=== PATIENT | female | born 1935 | race Hispanic/Latino ===

== ENCOUNTER 2017-11-14 13:58 | Outpatient (CLI) | payer MEDICARE | END 2017-11-14 13:59 | disposition home or self-care (01) | LOC: BICMAMMO 13:58 | PROVIDERS: ATTEND Internal Medicine | DX: Z12.31 Encounter for screening mammogram for malignant neoplasm of breast (principal); R92.1 Mammographic calcification found on diagnostic imaging of breast | CPT/HCPCS: 77063; 77067 ==

== ENCOUNTER 2017-11-19 15:04 | Outpatient (CLI) | payer MEDICARE | END 2017-11-19 15:05 | disposition home or self-care (01) | LOC: BICMAMMO 15:04 | PROVIDERS: ATTEND Internal Medicine | DX: N95.9 Unspecified menopausal and perimenopausal disorder (principal); M85.89 Other specified disorders of bone density and structure, multiple sites | CPT/HCPCS: 77080 ==

== ENCOUNTER 2017-12-26 09:45 | Outpatient (CLI) | payer MEDICARE ==
--- NOTE | 2017-12-26 11:16 | RAD ---
TWO VIEWS CHEST: Comparison: 06-19-14 History: Pre-operative radiograph with bronchitis. FINDINGS: Two views of the chest shows normal sized cardiomediastinal silhouette. The patient is status post st ernotomy. There is no evidence of consolidation, mass, or pleural effusion. IMPRESSION: No evidence of acute cardiopulmonary disease. POS: [facility]
== END 2017-12-26 09:46 | disposition home or self-care (01) ==
LOC: BICRAD 09:45
PROVIDERS: ATTEND Internal Medicine
DX: Z01.818 Encounter for other preprocedural examination (principal)
CPT/HCPCS: 71046

== ENCOUNTER 2018-11-03 04:40 | Emergency (ER) | payer MEDICARE, SELFPAY ==
[2018-11-03 05:21] LABS: #Eosinphils 0.3 thou/uL (0.0-0.7); #Lymphocytes 1.5 thou/uL (1.20-3.40); #Monocytes 0.4 thou/uL (0.11-0.59); #Neutrophils 5.3 thou/uL (1.40-6.50); %Basophils 0.2 % (0.0-1.0); %Lymphocytes 20.3 % (21.0-51.0); %Monocytes 4.8 % (0.0-10.0); %Neutrophils 70.8 % (42.0-75.0); Mean Corpuscular Hemoglobin 30.2 pg (27.0-31.0); Mean Corpuscular Volume 91.7 fL (78.0-98.0); Mean Platelet Volume 8.1 fL (7.4-10.4); Platelet Count 260 thou/uL (130-400); RBC Distribution Width 14.2 % (11.5-14.5); Red Blood Cell (RBC) Count 3.97 mill/uL (4.20-5.40); White Blood Cell (WBC) Count 7.5 thou/uL (4.8-10.8)
[2018-11-03] MEDS ORDERED: cloNIDine 0.1 MG TAB ONE (05:41)
[2018-11-03] MEDS ORDERED: Amlodipine 5 MG TAB ONE (05:41)
[2018-11-03 05:42] LABS: ALT (SGPT) 24 U/L (8-55); AST (SGOT) 41 U/L (5-34); Alkaline Phosphatase 86 U/L (40-150); Anion Gap 14 mmol/L (10-20); BUN (Urea Nitrogen) 18 mg/dL (9.8-20.1); Bilirubin, Total 0.6 mg/dL (0.2-1.2); Calc. Creatinine Clearance 0 mL/min (70-130); Calcium 9.7 mg/dL (7.8-10.44); Carbon Dioxide 22 mmol/L (23-31); Chloride 106 mmol/L (98-107); Estimated GFR-MDRD 55; Glucose 145 mg/dL (83-110); Potassium 3.7 mmol/L (3.5-5.1); Sodium 138 mmol/L (136-145)
[2018-11-03] MEDS ORDERED: Lisinopril 20 MG TAB PO SCH (06:00)
[2018-11-03] MEDS ORDERED: Bisoprolol Fumarate 5 MG TAB PO SCH (06:00)
--- NOTE | 2018-11-03 07:38 | RAD ---
EXAM: Portable chest PROVIDED CLINICAL HISTORY: Weakness COMPARISON: 12/26/2017 FINDINGS: Cardiac silhouette remains enlarged. Atherosclerosis and median sternotomy changes are again seen. Ex amination is rotated and apical lordotic, limiting evaluation. No focal consolidation, pleural fluid or pneumothorax evident. IMPRESSION: No evidence for an acute cardiopulmonary process.
== END 2018-11-03 06:11 | disposition home or self-care (01) ==
LOC: ERS 04:40
DX: I10 Essential (primary) hypertension (principal); R06.02 Shortness of breath; I25.10 Atherosclerotic heart disease of native coronary artery without angina pectoris; E11.9 Type 2 diabetes mellitus without complications; E78.5 Hyperlipidemia, unspecified; Z79.899 Other long term (current) drug therapy; Z79.4 Long term (current) use of insulin; Z79.82 Long term (current) use of aspirin
CPT/HCPCS: 36415; 71045; 80053; 83880; 84484; 85025; 93005

== ENCOUNTER 2018-12-13 14:00 | Outpatient (CLI) | payer MEDICARE ==
--- NOTE | 2018-12-13 14:40 | MMO ---
Bilateral MAMMO Bilat Screen [facility]. CLINICAL HISTORY: Patient is 83 years old and is seen for screening. The patient has no family history of breast cancer. The patient has no personal history of cancer. VIEWS: The views performed were: bilateral craniocaudal with tomosynthesis and bilateral mediolateral oblique with tomosynthesis. FILMS COMPARED: The present examination has been compared to prior imaging studies performed at [facility] on 01/21/2014, 02/11/2015, 04/13/2016 and 11/14/2017. This study has been interpreted with the assistance of computer-aided detection. MAMMOGRAM FINDINGS: There are scattered fibroglandular densities. There are stable benign appearing calcifications seen in both breasts. There are also vascular calcifications. There are no suspicious masses, suspicious calcifications, or new areas of architectural distortion. IMPRESSION: THERE IS NO MAMMOGRAPHIC EVIDENCE OF MALIGNANCY. A ROUTINE FOLLOW-UP MAMMOGRAM IN 1 YEAR IS RECOMMENDED. THE RESULTS OF THIS EXAM WERE SENT TO THE PATIENT. ACR BI-RADS Category 2 - Benign finding MAMMOGRAPHY NOTE: 1. A negative mammogram report should not delay a biopsy if a dominant of clinically suspicious mass is present. 2. Approximately 10% to 15% of breast cancers are not detected by mammography. 3. Adenosis and dense breasts may obscure an underlying neoplasm. Reported by: GUILHERME GEORGES MD Electonically Signed: [id number]
== END 2018-12-13 14:01 | disposition home or self-care (01) ==
LOC: BICMAMMO 14:00
PROVIDERS: ATTEND Internal Medicine
DX: Z12.31 Encounter for screening mammogram for malignant neoplasm of breast (principal)
CPT/HCPCS: 77063; 77067

== ENCOUNTER 2019-01-24 07:22 | Inpatient (IN) | payer MEDICARE ==
[2019-01-24 08:00] LABS: #Eosinphils 0.2 thou/uL (0.0-0.7); #Lymphocytes 1.5 thou/uL (1.20-3.40); #Monocytes 0.5 thou/uL (0.11-0.59); %Basophils 0.3 % (0.0-1.0); %Eosinophils 2.5 % (0.0-10.0); %Lymphocytes 24.6 % (21.0-51.0); %Neutrophils 64.6 % (42.0-75.0); Hemoglobin 10.9 g/dL (12.0-16.0); Mean Corpuscular HGB CONC 32.4 g/dL (32.0-36.0); Mean Corpuscular Hemoglobin 29.7 pg (27.0-31.0); Mean Corpuscular Volume 91.6 fL (78.0-98.0); Mean Platelet Volume 8.6 fL (7.4-10.4); Platelet Count 169 thou/uL (130-400); RBC Distribution Width 13.5 % (11.5-14.5); Red Blood Cell (RBC) Count 3.66 mill/uL (4.20-5.40); White Blood Cell (WBC) Count 6.2 thou/uL (4.8-10.8)
--- NOTE | 2019-01-24 08:10 | RAD ---
Portable chest: HISTORY: Dyspnea COMPARISON: 11/03/2018 FINDINGS:Cardiomegaly. Mild vascular engorgement. No focal infiltrate or significant effusion. Postop sternotomy change. 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 IMPRESSION:Cardiomegaly and mild vascular engorgement
[2019-01-24 08:25] LABS: ALT (SGPT) 136 U/L (8-55); AST (SGOT) 210 U/L (5-34); Albumin 3.9 g/dL (3.4-4.8); Alkaline Phosphatase 131 U/L (40-110); Anion Gap 13 mmol/L (10-20); BUN (Urea Nitrogen) 30 mg/dL (9.8-20.1); Bilirubin, Total 0.5 mg/dL (0.2-1.2); Calc. Creatinine Clearance 0 mL/min (70-130); Calcium 9.5 mg/dL (7.8-10.44); Carbon Dioxide 26 mmol/L (23-31); Chloride 108 mmol/L (98-107); Estimated GFR-MDRD 33; Globulin 3.1 g/dL (2.4-3.5); Glucose 164 mg/dL (83-110); Potassium 4.6 mmol/L (3.5-5.1); Sodium 142 mmol/L (136-145)
[2019-01-24 08:45] LABS: CKMB 4.3 ng/mL (0-6.6)
[2019-01-24] MEDS ORDERED: Nitroglycerin 2% Ointment 1 INCH/1 GM Packet ONE (08:53)
[2019-01-24] MEDS ORDERED: Furosemide 40 MG/4 ML VIAL ONE (08:53)
[2019-01-24] MEDS ORDERED: Aspirin Chewable 81 MG TAB ONE (08:53)
[2019-01-24] MEDS ORDERED: Acetaminophen 325 MG TAB PO PRN (10:31)
[2019-01-24] MEDS ORDERED: Bisacodyl 10 MG SUPP PR PRN (10:31)
[2019-01-24] MEDS ORDERED: Dextrose 5% in Water 1,000 ML IV PRN (10:31)
[2019-01-24] MEDS ORDERED: HumaLOG 300 UNITS/3 ML VIAL SC PRN (10:31)
[2019-01-24] MEDS ORDERED: Senokot S 8.6-50 MG TAB PO PRN (10:31)
[2019-01-24] MEDS ORDERED: Guaifenesin DM 100-10/5 ML UDCUP PO PRN (10:31)
[2019-01-24] MEDS ORDERED: Dextrose 50% Abboject 50 ML SYRINGE SLOW IVP PRN (10:31)
[2019-01-24] MEDS ORDERED: cloNIDine 0.1 MG TAB ONE (10:39)
--- NOTE | 2019-01-24 11:02 | HP ---
PRIMARY CARE PHYSICIAN: Love Zavala MD. PRIMARY CLINICAL RESEARCH ASSISTANT: Dr. Horvath. REASON FOR ADMISSION: CHF exacerbation, acute kidney injury. HISTORY OF PRESENTING ILLNESS: The patient gives history of shortness of breath which started from yesterday. She could not sleep. Finally, the patient woke up and has been awake the whole night. Has dry coughing spells, but no expectoration. No fever. She has had a flu shot for this year. The patient says she has had a stress test and angiogram done before her knee replacement in April of this year. She also mentions that she has had an echo done 3 months back and was told that she has a heart murmur and Dr. Horvath will evaluate her echo again in February. She was also been told that she might need a pacemaker at some point. Currently has no chest pain or palpitations. She normally ambulates by herself, but has been having trouble with shortness of breath now. No abdominal pain, nausea, or vomiting. PAST MEDICAL AND SURGICAL HISTORY: History of diabetes mellitus type 2, hypertension, dyslipidemia, CABG done 12 years back, hysterectomy, history of Smart palsy with complete resolution. CURRENT MEDICATIONS: The patient is on 1. Glimepiride 4 mg twice daily. 2. Benazepril 40 mg twice daily. 3. Atorvastatin 40 mg p.o. at bedtime. 4. Bisoprolol 10 mg p.o. daily. 5. Aspirin 325 mg p.o. daily. 6. Lasix 40 mg p.o. twice daily. 7. Metformin 1000 mg twice daily. 8. Humulin 70/30 24 units subcu twice daily before meals. 9. Clonidine 0.2 mg twice daily. ALLERGIES: NO KNOWN DRUG ALLERGIES. PERSONAL HISTORY: Does not abuse alcohol or drugs. No history of smoking. FAMILY HISTORY: Mother during childbirth when she was 38 years old. Father in his 70s. She does not know much about her father. CODE STATUS: Full. Power of field marketing associate is her . REVIEW OF SYSTEMS: CONSTITUTIONAL: Negative for weight loss or gain, ability to conduct usual activities. SKIN: Negative for rash, itching. EYES: Negative for double vision, pain. ENT/MOUTH: Negative for nose bleeding, neck stiffness, pain, tenderness. CARDIOVASCULAR: Negative for palpitations, dyspnea on exertion, orthopnea. RESPIRATORY: Negative for shortness of breath, wheezing, cough, hemoptysis, fever or night sweats. GASTROINTESTINAL: Negative for poor appetite, abdominal pain, heartburn, nausea , vomiting, constipation, or diarrhea. GENITOURINARY: Negative for urgency, frequency, dysuria, nocturia. MUSCULOSKELETAL: Negative for pain, swelling. NEUROLOGIC/PSYCHIATRIC: Negative for anxiety, depression. ALLERGY/IMMUNOLOGIC: Negative for skin rash, bleeding tendency. PHYSICAL EXAMINATION: GENERAL: The patient is an 83-year-old female who is currently in mild respiratory distress. VITAL SIGNS: Blood pressure 200/100, pulse 62 per minute, respiratory rate 20 per minute, temperature 98.1 degrees Fahrenheit, saturating 98% on room air. NECK: Supple. Elevated JVD. HEENT: Eyes, extraocular muscles intact. Pupils reacting to light. Oral cavity, mucous membranes are dry. No exudates or congestion. CARDIOVASCULAR: S1, S2 heard, irregular rhythm. RESPIRATORY: Air entry 1+ bilateral. Scattered rales in the infrascapular area. There is edema in the lower back area. ABDOMEN: Soft. Bowel sounds heard. No tenderness, rigidity, or guarding. EXTREMITIES: There is 2+ peripheral edema. No calf tenderness. VASCULAR: Peripheral pulses 1+ bilateral, no ischemic ulcerations or gangrene. CENTRAL NERVOUS SYSTEM: No gross focal deficits noted. The patient is alert, awake, and oriented well. PSYCHIATRIC: The patient's mood is euthymic. No hallucinations or delusions. LABORATORY DATA: EKG done shows an atrial fibrillation at 64 beats per minute. There is bifascicular block with signs of LVH and poor R-wave progression. There is also Q-wave seen in leads II, III, aVF. Chest x-ray done shows cardiomegaly with pulmonary vascular congestion. BNP is 1920. AST 210, ALT 136, alkaline phosphatase 131, CK-MB 4.3, albumin 3.9. Troponin I 0.07. BUN 30, creatinine , serum glucose 164, serum bicarb 26. White count of 6, H and H 10 and 33, platelet count 169, MCV is 91 with 64% neutrophils. CLINICAL IMPRESSION AND PLAN: Patient will be admitted to telemetry for acute congestive heart failure exacerbation, acute kidney injury. The patient will be gently diuresed with Lasix 40 mg IV at 6 a.m. and 2 p.m. We will also continue her aspirin, Lipitor, bisoprolol, clonidine, glimepiride, Humulin 70/30 at 20 units subcu twice daily. Her metformin and benazepril will be held for now. Echo will be obtained for current LV function. I have consulted Dr. Madison per family request for acute kidney injury which might get worse with diuresis. She has hypertensive urgency at present, likely a component of anxiety is also present. We will closely watch her. We will provide her regular medications and see how she trends. She has bifascicular block and will be at high risk for bradycardia. We will obtain consultation with Dr. Griffin who is on-call for Dr. Horvath for Cardiology. Job ID: [id number] [facility]
[2019-01-24 11:42] VITALS: BMI 28.6
--- NOTE | 2019-01-24 12:10 | CON ---
DATE OF CONSULTATION: HISTORY OF PRESENT ILLNESS: Ms. Hoff is an 83-year-old white female, who was admitted for CHF exacerbation. We are now being consulted for her acute kidney injury with a creatinine of 1.42. REVIEW OF SYSTEMS: Positive for shortness of breath. Denies any chest pain. No syncopal episode. No productive cough. No fever or chills. No diarrhea. No constipation. No productive cough. No dysuria. No urinary frequency. No abdominal pain. Appetite and energy level are fair. No headache. No diplopia. HOME MEDICATIONS: Included the following 1. Glimepiride 4 mg twice a day. 2. Benazepril 40 mg twice a day. 3. Atorvastatin 40 mg at bedtime. 4. Bisoprolol 10 mg tab daily. 5. Aspirin 325 mg daily. 6. Lasix 40 mg tab twice a day. 7. Metformin 1000 mg twice daily. 8. Humulin 70/30 24 units subcu b.i.d. 9. Clonidine 0.2 mg b.i.d. ALLERGIES: NONE. TRAUMA: None. IMMUNIZATIONS: Up-to-date. HOSPITALIZATIONS: Please see past medical history. PAST MEDICAL HISTORY: Coronary artery disease, status post CHF, type 2 diabetes mellitus, hyperlipidemia, status post Smart palsy, hypertension. PAST SURGICAL HISTORY: Status post CABG, status post cardiac cath. SOCIAL HISTORY: The patient is . 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 No IV drug abuse, currently no smoking, no alcohol intake, sedentary lifestyle. FAMILY HISTORY: No family history of ESRD. PHYSICAL EXAMINATION: VITAL SIGNS: Blood pressure 200/100, heart rate 62, respiratory rate 22, temperature 98.1, and pulse ox 98%. GENERAL: Noted to be awake, in mild respiratory distress. SKIN: Adequate turgor. HEENT: She has a pinkish conjunctivae. Anicteric sclerae. NECK: No neck mass. No carotid bruits. No JVD. CHEST: No deformities. LUNGS: Decreased breath sounds-bibasilar crackles. HEART: Normal sinus rhythm. No murmurs, gallops, or rubs. ABDOMEN: Globular, soft, nontender, no masses. EXTREMITIES: Positive for edema. No calf tenderness. NEUROLOGIC: The patient is awake, alert, oriented to 3 spheres. Moving all extremities. No tremors. No asterixis. LABORATORY DATA: EKG showed atrial fibrillation at 64 beats per minute. Chest x-ray shows cardiomegaly and CHF. Laboratories of January 24, 2019, white count 6.2, hemoglobin 10.9. Sodium 142, potassium 4.6, chloride 108, carbon dioxide 26, BUN 30, creatinine 1.49, AST 210, ALT 136. Troponin I 0.076. BNP 1920. November 03, 2018, creatinine 0.97. Cardiac echo has been ordered. Urinalysis has also been ordered. ASSESSMENT AND PLAN: 1. Acute kidney injury-most likely a hemodynamically-mediated renal dysfunction. History shows that she has been taking maximal dose of benazepril which has been discontinued. We will order urinalysis and renal ultrasound. If there is proteinuria in the urine sediment, most likely she has an underlying chronic renal failure from diabetic nephropathy. 2. Congestive heart failure. Currently, on IV furosemide. Continue diuresis. Observe renal function while on diuretics. 3. There is no indication for any dialytic intervention in this patient. Overall, agree with current management. Job ID: [id number]
[2019-01-24] MEDS: Furosemide 40 MG/4 ML VIAL SLOW IVP SCH (13:38)
[2019-01-24 14:28] LABS: Troponin I 0.053 ng/mL (< 0.028)
--- NOTE | 2019-01-24 16:43 | ULT ---
ULTRASOUND RETROPERITONEUM COMPLETE: (RENAL) DATE: 01/24/2019 HISTORY: 83-year-old female with acute renal failure FINDINGS: Visualization of kidneys and bladder is limited because of large body habitus. The right kidney measures 10.5 x 4.5 x 4 cm. The left kidney measures 10 x 5 x 4.5 cm. Both kidneys have normal parenchymal echogenicity. There is no hydronephrosis. No moderate sized or large renal cystic or solid renal lesion is identified. Cursory images of the urinary bladder demonstrate no gross abnormality. IMPRESSION: 1. Limited study. 2. No abnormality identified.
[2019-01-24] MEDS ORDERED: hydrALAZINE 25 MG TAB PO SCH (16:45)
[2019-01-24 19:21] LABS: Bacteria/HPF None Seen HPF (None Seen); Bilirubin Negative (Negative); Blood, Urine Negative (Negative); Clarity Clear (Clear); Glucose, Urine (Dipstick) Normal (Negative); Leukocyte Negative Leu/uL (Negative); Nitrite Negative (Negative); Protein, Urine (Dipstick) Negative (Neg-Trace); RBC/HPF 0-3 HPF (0-3); Squamous Epithelial 0-3 HPF (0-3); Urobilinogen Normal mg/dL (Less than 2); WBC/HPF 0-3 HPF (0-3)
[2019-01-24] MEDS: Atorvastatin Calcium 40 MG TAB PO SCH (20:00)
[2019-01-24] MEDS: hydrALAZINE 25 MG TAB PO SCH (20:00)
[2019-01-24] MEDS: cloNIDine 0.2 MG TAB PO SCH (20:00)
[2019-01-24] MEDS ORDERED: cloNIDine 0.2 MG TAB PO SCH (21:00)
[2019-01-24] MEDS ORDERED: cloNIDine 0.1 MG TAB PO SCH (21:00)
[2019-01-24] MEDS: HumuLIN 70/30 (300 UNITS/3 ML VIAL) SC SCH (21:11)
--- NOTE | 2019-01-24 22:56 | CON ---
DATE OF CONSULTATION: HISTORY OF PRESENT ILLNESS: Alayna Hoff is an 83-year-old female who has followed with Dr. Horvath for many years. She underwent CABG in December [address] Renee. Three grafts were placed-FAITH to the LAD, vein graft to the obtuse marginal 1 and vein graft to distal right coronary artery. She underwent knee replacement in April and prior to that in February 2018 underwent cardiac catheterization. This revealed the FAITH to the LAD to be patent, vein graft to 1st obtuse marginal and to the right coronary artery were patent. Her last echocardiogram was December 03, 2018 which revealed ejection fraction of 55% to 60% with [id number] mitral regurgitation, mild aortic valve stenosis, moderate tricuspid regurgitation, mild pulmonic regurgitation. She now is admitted with increased peripheral edema as well as increased dyspnea on exertion. She denies any chest discomfort. PAST MEDICAL HISTORY: Coronary artery disease, diabetes, hypertension, hypercholesterolemia, Smart's palsy with complete remission. PAST MEDICAL HISTORY: Knee replacement, CABG, and hysterectomy. MEDICATIONS: At home include: 1. Aspirin 325 daily. 2. Atorvastatin 40 daily. 3. Benazepril 40 mg daily. 4. Bisoprolol 10 mg daily. 5. Clonidine 0.2 mg b.i.d. 6. Fenofibrate 160 daily. 7. Furosemide 40 b.i.d. 8. Glimepiride 4 mg b.i.d. 9. Humulin N. 10. Hydralazine 50 t.i.d. 11. Metformin 1000 mg b.i.d. 12. Minoxidil 2.5 mg daily. ALLERGIES: NONE. SOCIAL HISTORY: She does not smoke or drink. REVIEW OF SYSTEMS: Unremarkable. PHYSICAL: VITAL SIGNS: Blood pressure 193/82, pulse is 55. HEENT: PERRL. NECK: Supple. CHEST: Clear. CARDIAC: S1 and S2 normal without any S3 or S4. There is a 2/6 systolic murmur. ABDOMEN: Normal bowel sounds without tenderness. EXTREMITIES: Revealed 2+ pretibial edema. NEUROLOGIC: Grossly intact. SKIN: Warm and dry. LABORATORY DATA: EKG reveals normal sinus rhythm with at times atrial bigeminy, right bundle-branch block. Hemoglobin 10.9, hematocrit 33.5, white count 6200, platelets 169,000. Troponin I 0.076. BNP 1920.1. Sodium 142, potassium 4.6, chloride 108, carbon dioxide 26, BUN 30 and creatinine 1.49, AST 210, ALT 136. IMPRESSION: 1. Probable ynqao-ej-oplmfih diastolic heart failure. 2. Ydgztqfw-ov-eyfmvf mitral regurgitation. 3. Poorly controlled hypertension. 4. Acute kidney jnspgz-[id number] kidney disease. 5. Hyperlipidemia. 6. History of coronary artery disease. 7. Elevated liver function test, probably due to hepatic congestion. PLAN: The patient will continue to be diuresed and renal function will be monitored closely. Echocardiogram be performed to reassess left ventricular function. We will follow the patient with you. Job ID: [id number]
[2019-01-24] MEDS: hydrALAZINE 20 MG/ML VIAL SLOW IVP PRN (23:18)
[2019-01-25] MEDS ORDERED: ALPRAZolam 0.25 MG TAB PO SCH (03:00)
[2019-01-25] MEDS ORDERED: hydrALAZINE 20 MG/ML VIAL SLOW IVP SCH (05:15)
[2019-01-25] MEDS: Furosemide 40 MG/4 ML VIAL SLOW IVP SCH ×2 (05:46→13:06)
[2019-01-25] MEDS ORDERED: NIFEdipine 10 MG CAP PO SCH (06:45)
[2019-01-25 06:55] LABS: #Eosinphils 0.2 thou/uL (0.0-0.7); #Lymphocytes 1.4 thou/uL (1.20-3.40); #Monocytes 0.4 thou/uL (0.11-0.59); #Neutrophils 4.3 thou/uL (1.40-6.50); %Basophils 0.6 % (0.0-1.0); %Eosinophils 3.1 % (0.0-10.0); %Monocytes 6.6 % (0.0-10.0); %Neutrophils 67.7 % (42.0-75.0); Hemoglobin 10.6 g/dL (12.0-16.0); Mean Corpuscular HGB CONC 32.2 g/dL (32.0-36.0); Mean Corpuscular Hemoglobin 29.6 pg (27.0-31.0); Mean Platelet Volume 8.4 fL (7.4-10.4); Platelet Count 177 thou/uL (130-400); RBC Distribution Width 13.7 % (11.5-14.5); Red Blood Cell (RBC) Count 3.59 mill/uL (4.20-5.40); White Blood Cell (WBC) Count 6.3 thou/uL (4.8-10.8)
[2019-01-25 07:37] LABS: ALT (SGPT) 89 U/L (8-55); AST (SGOT) 75 U/L (5-34); Albumin 3.6 g/dL (3.4-4.8); Alkaline Phosphatase 110 U/L (40-110); Anion Gap 14 mmol/L (10-20); BUN (Urea Nitrogen) 27 mg/dL (9.8-20.1); Bilirubin, Total 0.9 mg/dL (0.2-1.2); Calc. Creatinine Clearance 34 mL/min (70-130); Calcium 9.7 mg/dL (7.8-10.44); Carbon Dioxide 25 mmol/L (23-31); Chloride 106 mmol/L (98-107); Estimated GFR-MDRD 38; Globulin 2.7 g/dL (2.4-3.5); Glucose 186 mg/dL (83-110); Potassium 3.7 mmol/L (3.5-5.1); Protein, Total 6.3 g/dL (6.0-8.3); Sodium 141 mmol/L (136-145)
[2019-01-25] MEDS ORDERED: NIFEdipine XL 30 MG TAB PO SCH (09:00)
[2019-01-25] MEDS: Bisoprolol Fumarate 5 MG TAB PO SCH (09:13)
[2019-01-25] MEDS: cloNIDine 0.2 MG TAB PO SCH ×2 (09:13→20:29)
[2019-01-25] MEDS: Glimepiride 4 MG TAB PO SCH (09:13)
[2019-01-25] MEDS: Aspirin Chewable 81 MG TAB PO SCH (09:13)
[2019-01-25] MEDS: Enoxaparin Sodium 30 MG/0.3 ML SYRINGE SC SCH (09:13)
[2019-01-25] MEDS: hydrALAZINE 25 MG TAB PO SCH ×3 (09:13→20:29)
[2019-01-25] MEDS: HumuLIN 70/30 (300 UNITS/3 ML VIAL) SC SCH ×2 (09:49→20:29)
--- NOTE | 2019-01-25 10:01 | PRG ---
DATE OF SERVICE: 01/25/2019 SERVICE: Renal Medicine. SUBJECTIVE: Ms. Hoff is an 83-year-old female, admitted for CHF. We saw the patient for an acute kidney injury. At that time, we felt that this was simply a hemodynamically-mediated renal dysfunction secondary to intake of her SHANDRA inhibitor/ARB as well as diuretics. She is now breathing better. Renal function is actually improved. The renal ultrasound was said to be within normal. Cardiology has also evaluated this patient. A cardiac echo was done, which showed a normal ejection fraction. No other complaints today. Her breathing is much improved. OBJECTIVE: VITAL SIGNS: Blood pressure 140/63, heart rate 76, respiratory rate 18, temperature 97.3, pulse ox 94% on room air. GENERAL: Awake, alert, comfortable, not in distress. SKIN: Adequate turgor. HEENT: She has pinkish conjunctivae. Anicteric sclerae. NECK: No neck mass. No carotid bruits. No JVD. CHEST: No deformities. LUNGS: Decreased breath sounds. HEART: Normal sinus rhythm. No murmur. No gallops. No rubs. ABDOMEN: Globular, soft, nontender. No masses. EXTREMITIES: No edema. No deformities. MEDICATIONS: Medications of January 25, 2019, was reviewed. LABORATORY DATA: Laboratories of January 25, 2019, sodium 141, potassium 3.7, chloride 106, carbon dioxide 25, BUN 27, creatinine 1.32, glucose 186, calcium 9.7. AST 75, ALT 89, albumin 3.6, TSH 2.5. Renal ultrasound normal. Cardiac echo; EF is noted to be within normal. ASSESSMENT AND PLAN: 1. Congestive heart failure, clinically improving. Continue current diuretic regimen. 2. Acute kidney injury-this is a hemodynamically-mediated renal dysfunction. Off her SHANDRA inhibitors and ARB for the moment. Continue current diuretic regimen. She is tolerating the current diuretics. There is no indication for any emergent hemodialysis with this patient. 3. We will recheck basic metabolic profile and CBC in the a.m. Job ID: [id number]
--- NOTE | 2019-01-25 12:34 | PDOC.HOSPP ---
- Subjective Encounter Date: 01/25/19 Encounter Time: 08:20 Subjective: Pt seen for followup re: diastolic CHF exacerbation. feels better today. - Objective Vital Signs & Weight: Vital Signs (12 hours) Temp Pulse Pulse Pulse Resp BP BP 01/25/19 11:26 60 54 L 146/72 H 01/25/19 09:13 76 140/63 01/25/19 08:00 97.3 F L 76 18 01/25/19 06:30 55 L 01/25/19 04:42 97.8 F 55 L 20 01/25/19 02:35 58 L 22 H 01/25/19 00:55 BP BP Pulse Ox Pulse Ox Pulse Ox 01/25/19 11:26 150/67 H 96 67 L 01/25/19 09:13 01/25/19 08:00 140/63 94 L 01/25/19 06:30 198/77 H 01/25/19 04:42 196/85 H 95 01/25/19 02:35 208/80 H 96 01/25/19 00:55 176/76 H Weight Weight 145 lb 9.6 oz I&O: 01/24/19 01/25/19 01/26/19 06:59 06:59 06:59 Intake Total 300 Output Total 350 Balance -50 Result Diagrams: 01/25/19 06:35 01/25/19 06:35 Additional Labs: Accuchecks 01/25/19 01/25/19 01/24/19 11:22 05:35 20:33 POC Glucose 324 H 180 H 192 H 01/24/19 01/24/19 17:04 12:57 POC Glucose 184 H 154 H Labs and MARs reviewed by me EKG Reviewed by me: Yes (Tele: NSR) Hospitalist ROS - Review of Systems Respiratory: reports: SOB with excertion Cardiovascular: denies: chest pain, palpitations, orthopnea, paroxysmal noc. dyspnea, edema, light headedness Gastrointestinal: denies: nausea, vomiting, abdominal pain, diarrhea, constipation, melena, hematochezia - Medication Medications: Active Medications Generic Name Dose Route Start Last Admin Trade Name Freq PRN Reason Stop Dose Admin Aspirin 81 mg 01/25/19 09:00 01/25/19 09:13 Aspirin Chewable PO 81 mg DAILY AISHA Administration Atorvastatin Calcium 40 mg 01/24/19 21:00 01/24/19 20:00 Lipitor PO 40 mg HS AISHA Administration Bisoprolol Fumarate 10 mg 01/25/19 09:00 01/25/19 09:13 Zebeta PO 10 mg DAILY AISHA Administration Clonidine 0.2 mg 01/24/19 21:00 01/25/19 09:13 Catapres PO 0.2 mg BID AISHA Administration Enoxaparin Sodium 30 mg 01/25/19 09:00 01/25/19 09:13 Lovenox SC 30 mg 0900 AISHA Administration Furosemide 40 mg 01/24/19 14:00 01/25/19 05:46 Lasix SLOW IVP 40 mg 0600,1400 AISHA Administration Glimepiride 4 mg 01/25/19 08:00 01/25/19 09:13 Amaryl PO 4 mg QAM-WM AISHA Administration Hydralazine HCl 50 mg 01/24/19 21:00 01/25/19 09:13 Apresoline PO 50 mg TID AISHA Administration Hydralazine HCl 10 mg 01/24/19 21:26 01/24/19 23:18 Apresoline SLOW IVP 10 mg Q4H PRN Administration SBP > 180 and HR < 70 Insulin Human Isoph/Insulin Regular 20 units 01/24/19 21:00 01/25/19 09:49 Humulin 70/30 SC 20 unit BID AISHA Administration Sodium Chloride 10 ml 01/24/19 21:00 01/25/19 09:14 Flush - Normal Saline IVF 10 ml Q12HR AISHA Administration - Exam General Appearance: NAD Eye: anicteric sclera ENT: moist mucosa Neck: supple, no thyromegaly Heart: RRR, no rubs, murmur present Respiratory - other findings: Bibasal crackles Extremities: 2+ LE edema Skin: normal turgor Psychiatric: normal affect, normal behavior Hosp A/P (1) Acute on chronic diastolic CHF (congestive heart failure), NYHA class 3 Code(s): I50.33 - ACUTE ON CHRONIC DIASTOLIC (CONGESTIVE) HEART FAILURE Status : Acute (2) Acute worsening of stage 3 chronic kidney disease Code(s): N18.3 - CHRONIC KIDNEY DISEASE, STAGE 3 (MODERATE) Status: Acute (3) Hypertensive urgency Code(s): I16.0 - HYPERTENSIVE URGENCY Status: Acute (4) DM2 (diabetes mellitus, type 2) Status: Chronic (5) Dyslipidemia Code(s): E78.5 - HYPERLIPIDEMIA, UNSPECIFIED Status: Chronic - Plan plan discussed w/ family, out of bed/ambulate Continue IV furosemide. Continue PRN antihypertensives. Continue Lipitor. Creatinine improved to 1.32 today.
--- NOTE | 2019-01-25 15:11 | PDOC.CPN ---
- Subjective Date: 01/25/19 Time: 15:08 Interval history: Doing better. Still unable to talk without getting short winded. - Review of Systems General: denies: fever/chills, weight/appetite/sleep changes, night sweats, fatigue Respiratory: reports: shortness of breath. denies: cough, congestion, exercise intolerance Cardiovascular: reports: edema. denies: chest pain, palpitation, paroxysmal nocturnal dyspnea, orthopnea Gastrointestinal: denies: nausea, vomiting, diarrhea, constipation, abd pain, GI bleeding Musculoskeletal: denies: pain, tenderness, stiffness, swelling, arthritis/ arthralgias Neurological: denies: numbness, syncope, seizure, weakness - Objective Allergies/Adverse Reactions: Allergies Allergy/AdvReac Type Severity Reaction Status Date / Time No Known Allergies Allergy Verified 08/01/12 18:18 Visit Medications: Current Medications Acetaminophen (Tylenol) 650 mg PO Q4H PRN PRN Reason: Headache/Fever/Mild Pain (1-3) Aspirin (Aspirin Chewable) 81 mg PO DAILY [facility] Last Admin: 01/25/19 09:13 Dose: 81 mg Atorvastatin Calcium (Lipitor) 40 mg PO HS [facility] Last Admin: 01/24/19 20:00 Dose: 40 mg Bisacodyl (Dulcolax) 10 mg CA DAILYPRN PRN PRN Reason: Constipation Bisoprolol Fumarate (Zebeta) 10 mg PO DAILY [facility] Last Admin: 01/25/19 09:13 Dose: 10 mg Clonidine (Catapres) 0.2 mg PO BID [facility] Last Admin: 01/25/19 09:13 Dose: 0.2 mg Dextrose/Water (Dextrose 50%) 25 gm SLOW IVP PRN PRN PRN Reason: Hypoglycemia Enoxaparin Sodium (Lovenox) 30 mg SC 0900 [facility] Last Admin: 01/25/19 09:13 Dose: 30 mg Furosemide (Lasix) 40 mg SLOW IVP 0600,1400 [facility] Last Admin: 01/25/19 13:06 Dose: 40 mg Glimepiride (Amaryl) 4 mg PO QAM-[facility] Last Admin: 01/25/19 09:13 Dose: 4 mg Glucagon (Glucagon) 1 mg IM PRN PRN PRN Reason: Hypoglycemia Guaifenesin/Dextromethorphan (Robitussin Dm) 15 ml PO Q4H PRN PRN Reason: Cough Hydralazine HCl (Apresoline) 50 mg PO TID [facility] Last Admin: 01/25/19 09:13 Dose: 50 mg Hydralazine HCl (Apresoline) 10 mg SLOW IVP Q4H PRN PRN Reason: SBP > 180 and HR < 70 Last Admin: 01/24/19 23:18 Dose: 10 mg Dextrose/Water (D5w) 1,000 mls @ 0 mls/hr IV .Q0M PRN PRN Reason: Hypoglycemia Insulin Human Isoph/Insulin Regular (Humulin 70/30) 20 units SC BID [facility] Last Admin: 01/25/19 09:49 Dose: 20 unit Insulin Human Lispro (Humalog) 0 units SC .MODERATE SLIDING SC PRN PRN Reason: Moderate Correctional Scale Last Admin: 01/25/19 13:07 Dose: 8 unit Insulin Human Lispro (Humalog) 0 units SC .BEDTIME SLIDING SC PRN PRN Reason: Bedtime Correctional Scale Senna/Docusate Sodium (Senokot S) 2 tab PO BIDPRN PRN PRN Reason: Constipation Sodium Chloride (Flush - Normal Saline) 10 ml IVF Q12HR [facility] Last Admin: 01/25/19 09:14 Dose: 10 ml Sodium Chloride (Flush - Normal Saline) 10 ml IVF PRN PRN PRN Reason: Saline Flush Vital Signs & Weight: Vital Signs Temp Pulse Pulse Pulse Resp BP BP 01/25/19 12:00 97.6 F 60 19 01/25/19 11:26 60 54 L 146/72 H 01/25/19 09:13 76 140/63 01/25/19 08:00 97.3 F L 76 18 01/25/19 06:30 55 L 01/25/19 04:42 97.8 F 55 L 20 BP BP Pulse Ox Pulse Ox Pulse Ox 01/25/19 12:00 123/78 94 L 01/25/19 11:26 150/67 H 96 67 L 01/25/19 09:13 01/25/19 08:00 140/63 94 L 01/25/19 06:30 198/77 H 01/25/19 04:42 196/85 H 95 Weight 145 lb 9.6 oz - Physical Exam General: alert & oriented x3 HEENT: normocephaly Neck: supple neck Cardiac: regular rate and rhythm, systolic murmur Lungs: bibasilar rales Neuro: grossly intact Abdomen: active bowel sounds, soft, non-tender Extremities: 2+ LE edema Skin: clear Musculoskeletal: no pain - Labs Result Diagrams: 01/25/19 06:35 01/25/19 06:35 Troponin/CKMB CK-MB (CK-2) 4.3 ng/mL (0-6.6) 01/24/19 07:50 Troponin I 0.053 ng/mL (< 0.028) H 01/24/19 13:43 - Telemetry Sinus rhythms and dysrhythmias: sinus rhythm - Assessment/Plan Assessment/Plan: 1. Acute on chronic diastolic heart failure. 2, Severe MR 3. Aortic stenosis, likely mild, numbers showing severe likely from juxtaposition of mitral regurgitation wave. 4. CAD, s/p CAB x 3 in 2006 PLAN: - Continue IV diuresis.
[2019-01-25] MEDS: Atorvastatin Calcium 40 MG TAB PO SCH (20:29)
[2019-01-26 03:54] LABS: #Eosinphils 0.3 thou/uL (0.0-0.7); #Lymphocytes 1.7 thou/uL (1.20-3.40); #Monocytes 0.5 thou/uL (0.11-0.59); #Neutrophils 4.2 thou/uL (1.40-6.50); %Basophils 0.2 % (0.0-1.0); %Eosinophils 4.1 % (0.0-10.0); %Lymphocytes 24.8 % (21.0-51.0); %Monocytes 7.5 % (0.0-10.0); %Neutrophils 63.3 % (42.0-75.0); Hemoglobin 10.5 g/dL (12.0-16.0); Mean Corpuscular HGB CONC 33.6 g/dL (32.0-36.0); Mean Corpuscular Hemoglobin 30.5 pg (27.0-31.0); Mean Corpuscular Volume 90.7 fL (78.0-98.0); Mean Platelet Volume 8.7 fL (7.4-10.4); Platelet Count 173 thou/uL (130-400); RBC Distribution Width 13.5 % (11.5-14.5); Red Blood Cell (RBC) Count 3.43 mill/uL (4.20-5.40); White Blood Cell (WBC) Count 6.7 thou/uL (4.8-10.8)
[2019-01-26] MEDS: hydrALAZINE 20 MG/ML VIAL SLOW IVP PRN (04:04)
[2019-01-26 04:13] LABS: Anion Gap 9 mmol/L (10-20); BUN (Urea Nitrogen) 29 mg/dL (9.8-20.1); Calc. Creatinine Clearance 36 mL/min (70-130); Calcium 9.5 mg/dL (7.8-10.44); Carbon Dioxide 31 mmol/L (23-31); Chloride 104 mmol/L (98-107); Estimated GFR-MDRD 41; Glucose 150 mg/dL (83-110); Potassium 3.5 mmol/L (3.5-5.1); Sodium 140 mmol/L (136-145)
[2019-01-26] MEDS ORDERED: Nitroglycerin 2% Ointment 1 INCH/1 GM Packet TOP SCH (05:30)
[2019-01-26] MEDS: Furosemide 40 MG/4 ML VIAL SLOW IVP SCH ×2 (05:32→14:15)
[2019-01-26] MEDS: Bisoprolol Fumarate 5 MG TAB PO SCH (08:42)
[2019-01-26] MEDS: hydrALAZINE 25 MG TAB PO SCH ×3 (08:42→21:03)
[2019-01-26] MEDS: cloNIDine 0.2 MG TAB PO SCH ×2 (08:42→21:03)
[2019-01-26] MEDS: Glimepiride 4 MG TAB PO SCH (08:43)
[2019-01-26] MEDS: HumuLIN 70/30 (300 UNITS/3 ML VIAL) SC SCH ×2 (08:43→21:08)
[2019-01-26] MEDS: Enoxaparin Sodium 30 MG/0.3 ML SYRINGE SC SCH (08:43)
[2019-01-26] MEDS: Aspirin Chewable 81 MG TAB PO SCH (08:43)
--- NOTE | 2019-01-26 08:55 | PRG ---
DATE OF SERVICE: 01/26/2019 SUBJECTIVE: Ms. Hoff is an 83-year-old female, admitted for CHF. Breathing is much better. She is currently on IV diuretics. We saw this patient for acute kidney injury. This was a hemodynamically-mediated renal dysfunction. Adjustment with her medication was done, which improved the renal function. No other new complaints. OBJECTIVE: VITAL SIGNS: Blood pressure 195/78, heart rate 56, respiratory rate 20, temperature 98, pulse ox 95%. GENERAL: Awake, alert, comfortable, not in distress. SKIN: Adequate turgor. HEENT: Pinkish conjunctivae. Anicteric sclerae. NECK: No neck mass. No carotid bruits. No JVD. CHEST: No deformities. LUNGS: Decreased breath sounds. HEART: Normal sinus rhythm. No murmurs, no gallops, or rubs. ABDOMEN: Globular, soft, nontender. No masses. EXTREMITIES: No edema. No deformities. MEDICATIONS: Medications of January 26, 2019, reviewed. LABORATORY DATA: Laboratories of January 26, 2019, hemoglobin 10.5. Potassium 3.5, sodium 140, chloride 104, carbon dioxide 35, BUN 29, creatinine 1.25, calcium 9.5. ASSESSMENT AND PLAN: 1. Acute kidney luppoc-kxklgtqfqfelxco-jqohseys renal dysfunction. Slowly improving renal function with adjustment of her SHANDRA inhibitor /ARB. Continue current management. No indication for any dialysis. 2. Hypertension. Agreed with adjustment of hydralazine upwards. 3. Congestive heart failure, clinically much improved. Continue IV diuretics. Agree with current management. Recheck basic metabolic profile in a.m. Job ID: [id number]
[2019-01-26] MEDS: NIFEdipine XL 30 MG TAB PO SCH ×3 (09:51→18:00)
--- NOTE | 2019-01-26 12:33 | PDOC.HOSPP ---
- Subjective Encounter Date: 01/26/19 Encounter Time: 07:20 Subjective: Pt seen for followup re: CHF exacerbation. Feels better. - Objective Vital Signs & Weight: Vital Signs (12 hours) Temp Pulse Pulse Pulse Resp BP BP 01/26/19 12:25 57 L 47 L 144/65 H 01/26/19 11:30 97.4 F L 47 L 20 01/26/19 10:06 59 L 119/53 L 01/26/19 08:42 98.7 F 59 L 20 215/83 H 01/26/19 04:45 01/26/19 03:51 98.0 F 56 L 20 BP BP Pulse Ox Pulse Ox Pulse Ox 01/26/19 12:25 103/55 L 97 94 L 01/26/19 11:30 143/64 H 96 01/26/19 10:06 01/26/19 08:42 215/83 H 97 01/26/19 04:45 195/78 H 01/26/19 03:51 210/84 H 95 Weight Weight 146 lb 11.2 oz I&O: 01/25/19 01/26/19 01/27/19 06:59 06:59 06:59 Intake Total 300 200 Output Total 350 605 Balance -50 -405 Result Diagrams: 01/26/19 03:31 01/26/19 03:31 Additional Labs: Accuchecks 01/26/19 01/26/19 01/25/19 10:35 06:05 20:31 POC Glucose 339 H 169 H 171 H 01/25/19 01/25/19 18:41 17:11 POC Glucose 227 H 62 L Labs and MARs reviewed by wy Hospitalist ROS - Review of Systems Cardiovascular: denies: chest pain, palpitations, orthopnea, paroxysmal noc. dyspnea, edema, light headedness Gastrointestinal: denies: nausea, vomiting, abdominal pain, diarrhea, constipation, melena, hematochezia - Medication Medications: Active Medications Generic Name Dose Route Start Last Admin Trade Name Freq PRN Reason Stop Dose Admin Aspirin 81 mg 01/25/19 09:00 01/26/19 08:43 Aspirin Chewable PO 81 mg DAILY AISHA Administration Atorvastatin Calcium 40 mg 01/24/19 21:00 01/25/19 20:29 Lipitor PO 40 mg HS AISHA Administration Bisoprolol Fumarate 10 mg 01/25/19 09:00 01/26/19 08:42 Zebeta PO 10 mg DAILY AISHA Administration Clonidine 0.2 mg 01/24/19 21:00 01/26/19 08:42 Catapres PO 0.2 mg BID AISHA Administration Enoxaparin Sodium 30 mg 01/25/19 09:00 01/26/19 08:43 Lovenox SC 30 mg 0900 AISHA Administration Furosemide 40 mg 01/24/19 14:00 01/26/19 05:32 Lasix SLOW IVP 40 mg 0600,1400 AISHA Administration Glimepiride 4 mg 01/25/19 08:00 01/26/19 08:43 Amaryl PO 4 mg QAM-WM AISHA Administration Hydralazine HCl 10 mg 01/24/19 21:26 01/26/19 04:04 Apresoline SLOW IVP 10 mg Q4H PRN Administration SBP > 180 and HR < 70 Hydralazine HCl 75 mg 01/26/19 09:00 01/26/19 08:42 Apresoline PO 75 mg TID AISHA Administration Insulin Human Isoph/Insulin Regular 20 units 01/24/19 21:00 01/26/19 08:43 Humulin 70/30 SC 20 unit BID AISHA Administration Insulin Human Lispro 0 units 01/24/19 10:31 01/25/19 13:07 Humalog SC 8 unit .MODERATE SLIDING SC PRN Administration Moderate Correctional Scale Sodium Chloride 10 ml 01/24/19 21:00 01/26/19 08:44 Flush - Normal Saline IVF 10 ml Q12HR AISHA Administration - Exam General Appearance: NAD Eye: anicteric sclera ENT: moist mucosa Neck: supple, no JVD Heart: RRR, no rubs Respiratory: CTAB, no rales Gastrointestinal: soft, non-tender Extremities: 2+ LE edema Psychiatric: normal affect, normal behavior Hosp A/P (1) Acute on chronic diastolic CHF (congestive heart failure), NYHA class 3 Code(s): I50.33 - ACUTE ON CHRONIC DIASTOLIC (CONGESTIVE) HEART FAILURE Status : Acute (2) Acute worsening of stage 3 chronic kidney disease Code(s): N18.3 - CHRONIC KIDNEY DISEASE, STAGE 3 (MODERATE) Status: Acute (3) Hypertensive urgency Code(s): I16.0 - HYPERTENSIVE URGENCY Status: Acute (4) DM2 (diabetes mellitus, type 2) Status: Chronic (5) Dyslipidemia Code(s): E78.5 - HYPERLIPIDEMIA, UNSPECIFIED Status: Chronic - Plan plan discussed w/ family, out of bed/ambulate Pt is clinically improving. Continue IV furosemide. BP high in AM, improved after AM antihypertensives. Will continue Lipitor. Creatinine improved to 1.25 today.
--- NOTE | 2019-01-26 16:05 | PDOC.CPN ---
- Subjective Date: 01/26/19 Time: 16:03 - Review of Systems General: denies: fever/chills, weight/appetite/sleep changes, night sweats, fatigue Respiratory: denies: cough, congestion, shortness of breath, exercise intolerance Cardiovascular: reports: edema. denies: chest pain, palpitation, paroxysmal nocturnal dyspnea, orthopnea Gastrointestinal: denies: nausea, vomiting, diarrhea, constipation, abd pain, GI bleeding Musculoskeletal: denies: pain, tenderness, stiffness, swelling, arthritis/ arthralgias Neurological: denies: numbness, syncope, seizure, weakness - Objective Allergies/Adverse Reactions: Allergies Allergy/AdvReac Type Severity Reaction Status Date / Time No Known Allergies Allergy Verified 08/01/12 18:18 Visit Medications: Current Medications Acetaminophen (Tylenol) 650 mg PO Q4H PRN PRN Reason: Headache/Fever/Mild Pain (1-3) Aspirin (Aspirin Chewable) 81 mg PO DAILY [facility] Last Admin: 01/26/19 08:43 Dose: 81 mg Atorvastatin Calcium (Lipitor) 40 mg PO HS [facility] Last Admin: 01/25/19 20:29 Dose: 40 mg Bisacodyl (Dulcolax) 10 mg [place] DAILYPRN PRN PRN Reason: Constipation Bisoprolol Fumarate (Zebeta) 10 mg PO DAILY [facility] Last Admin: 01/26/19 08:42 Dose: 10 mg Clonidine (Catapres) 0.2 mg PO BID [facility] Last Admin: 01/26/19 08:42 Dose: 0.2 mg Dextrose/Water (Dextrose 50%) 25 gm SLOW IVP PRN PRN PRN Reason: Hypoglycemia Enoxaparin Sodium (Lovenox) 30 mg SC 0900 [facility] Last Admin: 01/26/19 08:43 Dose: 30 mg Furosemide (Lasix) 40 mg SLOW IVP 0600,1400 [facility] Last Admin: 01/26/19 14:15 Dose: 40 mg Glimepiride (Amaryl) 4 mg PO QAM-[facility] Last Admin: 01/26/19 08:43 Dose: 4 mg Glucagon (Glucagon) 1 mg IM PRN PRN PRN Reason: Hypoglycemia Guaifenesin/Dextromethorphan (Robitussin Dm) 15 ml PO Q4H PRN PRN Reason: Cough Hydralazine HCl (Apresoline) 10 mg SLOW IVP Q4H PRN PRN Reason: SBP > 180 and HR < 70 Last Admin: 01/26/19 04:04 Dose: 10 mg Hydralazine HCl (Apresoline) 75 mg PO TID [facility] Last Admin: 01/26/19 14:15 Dose: 75 mg Dextrose/Water (D5w) 1,000 mls @ 0 mls/hr IV .Q0M PRN PRN Reason: Hypoglycemia Insulin Human Isoph/Insulin Regular (Humulin 70/30) 20 units SC BID [facility] Last Admin: 01/26/19 08:43 Dose: 20 unit Insulin Human Lispro (Humalog) 0 units SC .MODERATE SLIDING SC PRN PRN Reason: Moderate Correctional Scale Last Admin: 01/25/19 13:07 Dose: 8 unit Insulin Human Lispro (Humalog) 0 units SC .BEDTIME SLIDING SC PRN PRN Reason: Bedtime Correctional Scale Nifedipine (Procardia Xl) 30 mg PO DAILY [facility] Senna/Docusate Sodium (Senokot S) 2 tab PO BIDPRN PRN PRN Reason: Constipation Sodium Chloride (Flush - Normal Saline) 10 ml IVF Q12HR [facility] Last Admin: 01/26/19 08:44 Dose: 10 ml Sodium Chloride (Flush - Normal Saline) 10 ml IVF PRN PRN PRN Reason: Saline Flush Vital Signs & Weight: Vital Signs Temp Pulse Pulse Pulse Resp BP BP 01/26/19 14:15 47 L 186/77 H 01/26/19 12:25 57 L 47 L 144/65 H 01/26/19 11:30 97.4 F L 47 L 20 01/26/19 10:06 59 L 119/53 L 01/26/19 08:42 98.7 F 59 L 20 215/83 H 01/26/19 04:45 BP BP Pulse Ox Pulse Ox Pulse Ox 01/26/19 14:15 01/26/19 12:25 103/55 L 97 94 L 01/26/19 11:30 143/64 H 96 01/26/19 10:06 01/26/19 08:42 215/83 H 97 01/26/19 04:45 195/78 H Weight 146 lb 11.2 oz - Physical Exam General: alert & oriented x3 HEENT: mucus membranes moist, normocephaly Neck: supple neck, midline trachea Cardiac: regular rate and rhythm Lungs: normal breath sounds Neuro: grossly intact Abdomen: active bowel sounds, non-tender, distended Extremities: 1+ LE edema Skin: clear Musculoskeletal: no pain - Labs Result Diagrams: 01/26/19 03:31 01/26/19 03:31 Troponin/CKMB CK-MB (CK-2) 4.3 ng/mL (0-6.6) 01/24/19 07:50 Troponin I 0.053 ng/mL (< 0.028) H 01/24/19 13:43 - Telemetry Sinus rhythms and dysrhythmias: sinus rhythm - Assessment/Plan Assessment/Plan: 1. Acute on chronic diastolic heart failure. 2, Severe MR 3. Aortic stenosis, likely mild, numbers showing severe likely from juxtaposition of mitral regurgitation wave. 4. CAD, s/p CAB x 3 in 2006 PLAN: - Continue IV diuresis for one more day then switch to PO lasix. - Dr. Horvath pt, she will follow up tomorrow.
[2019-01-26] MEDS: Atorvastatin Calcium 40 MG TAB PO SCH (21:03)
[2019-01-27 04:52] LABS: Anion Gap 12 mmol/L (10-20); BUN (Urea Nitrogen) 25 mg/dL (9.8-20.1); Calc. Creatinine Clearance 37 mL/min (70-130); Calcium 9.3 mg/dL (7.8-10.44); Carbon Dioxide 26 mmol/L (23-31); Chloride 104 mmol/L (98-107); Estimated GFR-MDRD 44; Glucose 172 mg/dL (83-110); Potassium 3.7 mmol/L (3.5-5.1); Sodium 138 mmol/L (136-145)
[2019-01-27] MEDS: Furosemide 40 MG/4 ML VIAL SLOW IVP SCH (06:16)
[2019-01-27] MEDS: Glimepiride 4 MG TAB PO SCH (08:42)
[2019-01-27] MEDS: cloNIDine 0.2 MG TAB PO SCH ×2 (08:42→21:01)
[2019-01-27] MEDS: Enoxaparin Sodium 30 MG/0.3 ML SYRINGE SC SCH (08:43)
[2019-01-27] MEDS: Aspirin Chewable 81 MG TAB PO SCH (08:43)
[2019-01-27] MEDS: hydrALAZINE 25 MG TAB PO SCH ×3 (08:43→21:01)
[2019-01-27] MEDS: HumuLIN 70/30 (300 UNITS/3 ML VIAL) SC SCH ×2 (08:44→21:28)
--- NOTE | 2019-01-27 08:50 | PDOC.CPN ---
- Subjective Date: 01/27/19 Time: 08:51 Interval history: The pt seen and examined. No overnight events. No cardiac complaints. - Objective Allergies/Adverse Reactions: Allergies Allergy/AdvReac Type Severity Reaction Status Date / Time No Known Allergies Allergy Verified 08/01/12 18:18 Visit Medications: Current Medications Acetaminophen (Tylenol) 650 mg PO Q4H PRN PRN Reason: Headache/Fever/Mild Pain (1-3) Aspirin (Aspirin Chewable) 81 mg PO DAILY [facility] Last Admin: 01/26/19 08:43 Dose: 81 mg Atorvastatin Calcium (Lipitor) 40 mg PO HS [facility] Last Admin: 01/26/19 21:03 Dose: 40 mg Bisacodyl (Dulcolax) 10 mg SC DAILYPRN PRN PRN Reason: Constipation Clonidine (Catapres) 0.2 mg PO BID [facility] Last Admin: 01/26/19 21:03 Dose: 0.2 mg Dextrose/Water (Dextrose 50%) 25 gm SLOW IVP PRN PRN PRN Reason: Hypoglycemia Enoxaparin Sodium (Lovenox) 30 mg SC 0900 [facility] Last Admin: 01/26/19 08:43 Dose: 30 mg Furosemide (Lasix) 40 mg SLOW IVP 0600,1400 [facility] Last Admin: 01/27/19 06:16 Dose: 40 mg Glimepiride (Amaryl) 4 mg PO QAM-WM [facility] Last Admin: 01/26/19 08:43 Dose: 4 mg Glucagon (Glucagon) 1 mg IM PRN PRN PRN Reason: Hypoglycemia Guaifenesin/Dextromethorphan (Robitussin Dm) 15 ml PO Q4H PRN PRN Reason: Cough Hydralazine HCl (Apresoline) 10 mg SLOW IVP Q4H PRN PRN Reason: SBP > 180 and HR < 70 Last Admin: 01/26/19 04:04 Dose: 10 mg Hydralazine HCl (Apresoline) 75 mg PO TID [facility] Last Admin: 01/26/19 21:03 Dose: 75 mg Dextrose/Water (D5w) 1,000 mls @ 0 mls/hr IV .Q0M PRN PRN Reason: Hypoglycemia Insulin Human Isoph/Insulin Regular (Humulin 70/30) 20 units SC BID [facility] Last Admin: 01/26/19 21:08 Dose: Not Given Insulin Human Lispro (Humalog) 0 units SC .BEDTIME SLIDING SC PRN PRN Reason: Bedtime Correctional Scale Insulin Human Lispro (Humalog) 0 units SC .MILD SLIDING SCALE PRN PRN Reason: Mild Correctional Scale Nifedipine (Procardia Xl) 30 mg PO 1700 [facility] Senna/Docusate Sodium (Senokot S) 2 tab PO BIDPRN PRN PRN Reason: Constipation Sodium Chloride (Flush - Normal Saline) 10 ml IVF Q12HR [facility] Last Admin: 01/26/19 21:04 Dose: 10 ml Sodium Chloride (Flush - Normal Saline) 10 ml IVF PRN PRN PRN Reason: Saline Flush Vital Signs & Weight: Vital Signs Temp Pulse Resp BP BP Pulse Ox 01/27/19 08:40 97.6 F 57 L 18 195/86 H 100 01/27/19 03:56 98.2 F 52 L 18 187/81 H 96 01/26/19 23:24 139/63 01/26/19 21:03 57 L 193/75 H 01/26/19 21:00 95 Weight 141 lb 5 oz - Physical Exam General: alert & oriented x3 HEENT: mucus membranes moist Neck: supple neck Cardiac: regular rate and rhythm, S1/S2 Lungs: clear to auscultation, decreased breath sounds Neuro: cranial nerve 2-12 intact Abdomen: unremarkable Extremities: 2+ LE edema Skin: clear Musculoskeletal: normal range of motion - Labs Result Diagrams: 01/26/19 03:31 01/27/19 04:20 Troponin/CKMB CK-MB (CK-2) 4.3 ng/mL (0-6.6) 01/24/19 07:50 Troponin I 0.053 ng/mL (< 0.028) H 01/24/19 13:43 - Telemetry Sinus rhythms and dysrhythmias: sinus rhythm - Assessment/Plan Assessment/Plan: 1. Acute on chronic diastolic heart failure - stable with RA with Lasix 40mg IV BID which will be changed to PO from today; BBlocker was stopped due to bradycardia; SHANDRA was on hold due to hx of CKD; 2, Severe MR 3. Severe Aortic stenosis - likely mild, numbers showing severe likely from juxtaposition of mitral regurgitation wave. 4. CAD, s/p CAB x 3 in 2006 - stable; on ASA and statin; not on bblocker for bradycardia and not on SHANDRA/ARB due to hx of CKD 5. Bradycardia - BBlocker was stopped; 6. HTN - will increase nifidipine from 30mg to 60mg qd since bblocker is on hold for bradycardia MAR reviewed * Echo on 01/24/2019 with EF 55-60%, mild SC, severe , MR, and TR. Pt. seen and eval. by me. I agree with the A/P by the MICROSTRATEGY ARCHITECT. She has a significant MR murmur. The even if not severe may be making the MR worse. It appears that the diastolic dysfunction may be a big contributor to the CHF. She sits most of the day with the legs down and this accounts for the lower leg edema. I suggested that she elevate the legs above the level of the heart but she refuses to stay in the bed. Continue gentle diuresis. Appreciate input from renal. She may eventually need a MV clip for the severe MR. She may need a right and left heart cath to re-evaluate the AV. If severe then will need a posssible TAVR. Eval. of the echo does not indicate severe .
[2019-01-27] MEDS ORDERED: NIFEdipine XL 30 MG TAB PO SCH ×3 (09:00→17:00)
--- NOTE | 2019-01-27 09:08 | PRG ---
DATE OF SERVICE: 01/27/2019 SUBJECTIVE: Ms. Hoff is an 83-year-old female, admitted for CHF and seen by Renal Service for her hemodynamically mediated acute kidney injury. She is doing better. Her shortness of breath much improved. In the interim, adjustment with her BP medications was done due to the bradycardia. No other complaints today. OBJECTIVE: VITAL SIGNS: Blood pressure 195/86, heart rate 57, respiratory rate 18, temperature 97.6, pulse ox 100%. GENERAL: Noted to be awake, alert, comfortable, not in overt distress. SKIN: Adequate turgor. HEENT: Pinkish conjunctivae. Anicteric sclerae. NECK: No neck mass. No carotid bruits. No JVD. CHEST: No deformities. LUNGS: Clear breath sounds. No wheezing. No crackles. HEART: Normal sinus rhythm. No murmurs. No gallops. No rubs. ABDOMEN: Globular, soft, nontender. No masses. EXTREMITIES: No edema. No deformities. MEDICATIONS: Medications of January 27, 2019, were reviewed. LABORATORY DATA: Laboratories of January 27, 2019; sodium 138, potassium 3.7, chloride 104, carbon dioxide 26, BUN 25, creatinine 1.17, glucose 172, calcium 9.3. ASSESSMENT AND PLAN: 1. Acute kidney injury-superimposed prerenal azotemia. Slowly improving with adjustment of her SHANDRA inhibitor/ARB. 2. Hypertension, on increased dose of hydralazine. Procardia has been started. Beta-lea is placed on hold due to the bradycardia. 3. Congestive heart failure, clinically much improved. Continuing current diuretic regimen. 4. Agree with current management. Job ID: [id number]
[2019-01-27] MEDS: HumaLOG 300 UNITS/3 ML VIAL SC PRN ×2 (11:51→21:01)
[2019-01-27] MEDS: Furosemide 40 MG TAB PO SCH (14:29)
[2019-01-27] MEDS: NIFEdipine XL 60 MG TAB PO SCH (16:31)
--- NOTE | 2019-01-27 18:15 | PDOC.HOSPP ---
- Subjective Encounter Date: 01/27/19 Encounter Time: 08:00 Subjective: Pt seen for followup re: CHF exacerbation. States she feels well. - Objective Vital Signs & Weight: Vital Signs (12 hours) Temp Pulse Pulse Pulse Resp BP BP 01/27/19 15:00 97.5 F L 58 L 18 01/27/19 12:00 97.6 F 55 L 18 01/27/19 11:54 48 L 56 L 185/78 H 132/58 L 01/27/19 08:40 97.6 F 57 L 18 BP Pulse Ox 01/27/19 15:00 151/66 H 98 01/27/19 12:00 132/58 L 98 01/27/19 11:54 01/27/19 08:40 195/86 H 95 Weight Weight 141 lb 5 oz I&O: 01/26/19 01/27/19 01/28/19 06:59 06:59 06:59 Intake Total 200 960 Output Total 605 1525 Balance -405 -565 Result Diagrams: 01/26/19 03:31 01/27/19 04:20 Additional Labs: Accuchecks 01/27/19 01/27/19 01/27/19 16:50 10:55 06:23 POC Glucose 198 H 319 H 171 H 01/26/19 21:10 POC Glucose 157 H Labs and MARs reviewed by me EKG Reviewed by me: Yes (Tele: bradycardia) Hospitalist ROS - Review of Systems Cardiovascular: denies: chest pain, palpitations, orthopnea, paroxysmal noc. dyspnea, edema, light headedness Gastrointestinal: denies: nausea, vomiting, abdominal pain, diarrhea, constipation, melena, hematochezia - Medication Medications: Active Medications Generic Name Dose Route Start Last Admin Trade Name Freq PRN Reason Stop Dose Admin Aspirin 81 mg 01/25/19 09:00 01/27/19 08:43 Aspirin Chewable PO 81 mg DAILY AISHA Administration Atorvastatin Calcium 40 mg 01/24/19 21:00 01/26/19 21:03 Lipitor PO 40 mg HS AISHA Administration Clonidine 0.2 mg 01/24/19 21:00 01/27/19 08:42 Catapres PO 0.2 mg BID AISHA Administration Enoxaparin Sodium 30 mg 01/25/19 09:00 01/27/19 08:43 Lovenox SC 30 mg 0900 AISHA Administration Furosemide 40 mg 01/27/19 14:00 01/27/19 14:29 Lasix PO 40 mg 0900,1400 AISHA Administration Glimepiride 4 mg 01/25/19 08:00 01/27/19 08:42 Amaryl PO 4 mg QAM-WM AISHA Administration Hydralazine HCl 10 mg 01/24/19 21:26 01/26/19 04:04 Apresoline SLOW IVP 10 mg Q4H PRN Administration SBP > 180 and HR < 70 Hydralazine HCl 75 mg 01/26/19 09:00 01/27/19 14:29 Apresoline PO 75 mg TID AISHA Administration Insulin Human Isoph/Insulin Regular 20 units 01/24/19 21:00 01/27/19 08:44 Humulin 70/30 SC 20 unit BID AISHA Administration Insulin Human Lispro 0 units 01/26/19 18:51 01/27/19 11:51 Humalog SC 5 unit .MILD SLIDING SCALE PRN Administration Mild Correctional Scale Nifedipine 60 mg 01/27/19 17:00 01/27/19 16:31 Procardia Xl PO 60 mg 1700 AISHA Administration Sodium Chloride 10 ml 01/24/19 21:00 01/27/19 08:44 Flush - Normal Saline IVF 10 ml Q12HR AISHA Administration - Exam General Appearance: NAD Eye: anicteric sclera ENT: negative: moist mucosa Neck: supple Heart: RRR Respiratory: CTAB Gastrointestinal: soft, non-tender Extremities: 2+ LE edema Psychiatric: normal affect, normal behavior Hosp A/P (1) Acute on chronic diastolic CHF (congestive heart failure), NYHA class 3 Code(s): I50.33 - ACUTE ON CHRONIC DIASTOLIC (CONGESTIVE) HEART FAILURE Status : Acute (2) Acute worsening of stage 3 chronic kidney disease Code(s): N18.3 - CHRONIC KIDNEY DISEASE, STAGE 3 (MODERATE) Status: Acute (3) Hypertensive urgency Code(s): I16.0 - HYPERTENSIVE URGENCY Status: Acute (4) DM2 (diabetes mellitus, type 2) Status: Chronic (5) Dyslipidemia Code(s): E78.5 - HYPERLIPIDEMIA, UNSPECIFIED Status: Chronic - Plan plan discussed w/ family, out of bed/ambulate Pt is clinically improving. Lasix switched to oral. Bradycardia, pt is started on Procardia. Will continue Lipitor. Creatinine improved to 1.17 today. Pt was switched to mild insulin sliding scale due to labile blood sugars.
[2019-01-27] MEDS: Atorvastatin Calcium 40 MG TAB PO SCH (21:01)
[2019-01-28 05:23] LABS: Anion Gap 9 mmol/L (10-20); BUN (Urea Nitrogen) 22 mg/dL (9.8-20.1); Calc. Creatinine Clearance 44 mL/min (70-130); Calcium 9.2 mg/dL (7.8-10.44); Carbon Dioxide 29 mmol/L (23-31); Chloride 104 mmol/L (98-107); Estimated GFR-MDRD 54; Glucose 136 mg/dL (83-110); Potassium 3.2 mmol/L (3.5-5.1); Sodium 139 mmol/L (136-145)
[2019-01-28] MEDS: hydrALAZINE 25 MG TAB PO SCH ×3 (08:28→21:30)
[2019-01-28] MEDS: cloNIDine 0.2 MG TAB PO SCH ×2 (08:28→21:31)
[2019-01-28] MEDS: Glimepiride 4 MG TAB PO SCH (08:28)
[2019-01-28] MEDS: HumuLIN 70/30 (300 UNITS/3 ML VIAL) SC SCH ×2 (08:29→21:52)
[2019-01-28] MEDS: Enoxaparin Sodium 30 MG/0.3 ML SYRINGE SC SCH (08:29)
[2019-01-28] MEDS: Furosemide 40 MG TAB PO SCH ×2 (08:29→14:30)
[2019-01-28] MEDS: Aspirin Chewable 81 MG TAB PO SCH (08:29)
--- NOTE | 2019-01-28 08:39 | PRG ---
DATE OF SERVICE: 01/28/2019 SUBJECTIVE: Ms. Hoff is an 83-year-old female, who was seen for acute kidney injury. Her renal function is much improved with adjustment of her medications. She was initially admitted for CHF, which is now clinically resolved. No other complaints today. Adjustment of BP medications has been done. Blood pressure is much improved. OBJECTIVE: VITAL SIGNS: Blood pressure 154/66, heart rate 60, respiratory rate 13, temperature 98, and pulse ox 95%. GENERAL: Awake, sitting comfortable, not in distress. SKIN: Adequate turgor. HEENT: Pinkish conjunctivae, anicteric sclerae. NECK: No neck mass. No carotid bruits. No JVD. CHEST: No deformities. LUNGS: Clear breath sounds. HEART: Normal sinus rhythm. No murmur. No gallops or rubs. ABDOMEN: Globular, soft, nontender, no masses. EXTREMITIES: No edema, no deformities. MEDICATIONS: January 28, 2019, was reviewed. LABORATORY DATA: Laboratories of January 28, 2019: Sodium 139, potassium 3.2, chloride 104, carbon dioxide 29, BUN 22, creatinine 0.98, calcium 9.2. ASSESSMENT AND PLAN: 1. Acute kidney injury - hemodynamically-mediated renal dysfunction. Much improved renal function with adjustment of her ARB/SHANDRA inhibitors. Continue current management. No indication for any dialytic intervention. 2. Mild hypokalemia. P.r.n. potassium replacement. 3. Hypertension, much improved. Continue current BP medications. 4. Congestive heart failure, resolved. Due to the improved renal function, we will be signing off. Job ID: [id number]
[2019-01-28] MEDS ORDERED: Potassium Chloride 20 MEQ TAB PO SCH (09:00)
--- NOTE | 2019-01-28 09:35 | PDOC.CPN ---
- Subjective Date: 01/28/19 Time: 09:35 Interval history: The pt seen and examined. No overnight events. No cardiac complaints. She would like to go home even with high BP. Discussed with the pt and about high risk of stroke and renal failure with high BP. - Objective Allergies/Adverse Reactions: Allergies Allergy/AdvReac Type Severity Reaction Status Date / Time No Known Allergies Allergy Verified 08/01/12 18:18 Visit Medications: Current Medications Acetaminophen (Tylenol) 650 mg PO Q4H PRN PRN Reason: Headache/Fever/Mild Pain (1-3) Aspirin (Aspirin Chewable) 81 mg PO DAILY [facility] Last Admin: 01/28/19 08:29 Dose: 81 mg Atorvastatin Calcium (Lipitor) 40 mg PO HS [facility] Last Admin: 01/27/19 21:01 Dose: 40 mg Bisacodyl (Dulcolax) 10 mg UT DAILYPRN PRN PRN Reason: Constipation Clonidine (Catapres) 0.2 mg PO BID [facility] Last Admin: 01/28/19 08:28 Dose: 0.2 mg Dextrose/Water (Dextrose 50%) 25 gm SLOW IVP PRN PRN PRN Reason: Hypoglycemia Enoxaparin Sodium (Lovenox) 30 mg SC 0900 [facility] Last Admin: 01/28/19 08:29 Dose: 30 mg Furosemide (Lasix) 40 mg PO 0900,1400 [facility] Last Admin: 01/28/19 08:29 Dose: 40 mg Glimepiride (Amaryl) 4 mg PO QAM-WM [facility] Last Admin: 01/28/19 08:28 Dose: 4 mg Glucagon (Glucagon) 1 mg IM PRN PRN PRN Reason: Hypoglycemia Guaifenesin/Dextromethorphan (Robitussin Dm) 15 ml PO Q4H PRN PRN Reason: Cough Hydralazine HCl (Apresoline) 10 mg SLOW IVP Q4H PRN PRN Reason: SBP > 180 and HR < 70 Last Admin: 01/26/19 04:04 Dose: 10 mg Hydralazine HCl (Apresoline) 75 mg PO TID [facility] Last Admin: 01/28/19 08:28 Dose: 75 mg Dextrose/Water (D5w) 1,000 mls @ 0 mls/hr IV .Q0M PRN PRN Reason: Hypoglycemia Insulin Human Isoph/Insulin Regular (Humulin 70/30) 20 units SC BID [facility] Last Admin: 01/28/19 08:29 Dose: 20 unit Insulin Human Lispro (Humalog) 0 units SC .BEDTIME SLIDING SC PRN PRN Reason: Bedtime Correctional Scale Last Admin: 01/27/19 21:01 Dose: 2 unit Insulin Human Lispro (Humalog) 0 units SC .MILD SLIDING SCALE PRN PRN Reason: Mild Correctional Scale Last Admin: 01/27/19 11:51 Dose: 5 unit Isosorbide Dinitrate (Isordil) 10 mg PO BID [facility] Nifedipine (Procardia Xl) 60 mg PO 1700 [facility] Last Admin: 01/27/19 16:31 Dose: 60 mg Potassium Chloride (K-Dur) 40 meq PO NOW [facility] Stop: 01/28/19 11:00 Last Admin: 01/28/19 08:28 Dose: 40 meq Potassium Chloride (K-Dur) 40 meq PO QAM-WM [facility] Senna/Docusate Sodium (Senokot S) 2 tab PO BIDPRN PRN PRN Reason: Constipation Sodium Chloride (Flush - Normal Saline) 10 ml IVF Q12HR [facility] Last Admin: 01/28/19 08:29 Dose: 10 ml Sodium Chloride (Flush - Normal Saline) 10 ml IVF PRN PRN PRN Reason: Saline Flush Vital Signs & Weight: Vital Signs Temp Pulse Resp BP BP Pulse Ox 01/28/19 08:25 98.1 F 55 L 18 199/95 H 98 01/28/19 03:09 98 F 60 13 154/66 H 95 01/28/19 00:00 97.4 F L 59 L 15 155/70 H 98 Weight 139 lb 11.2 oz - Physical Exam Cardiac: S1/S2 Lungs: clear to auscultation Extremities: no cyanosis - Labs Result Diagrams: 01/26/19 03:31 01/28/19 04:10 Troponin/CKMB CK-MB (CK-2) 4.3 ng/mL (0-6.6) 01/24/19 07:50 Troponin I 0.053 ng/mL (< 0.028) H 01/24/19 13:43 - Telemetry Sinus rhythms and dysrhythmias: sinus rhythm - Assessment/Plan Assessment/Plan: 1. Acute on chronic diastolic HF - stable with RA with Lasix 40mg PO BID; BBlocker was stopped due to bradycardia; SHANDRA was on hold due to hx of CKD; will start Isosorbide for Diaslotic HF and HTN management; may start Ranexa and Aldactone. 2, Severe MR - may need a MV clip for the severe MR. 3. Aortic stenosis - likely mild, numbers showing severe likely from juxtaposition of mitral regurgitation wave, does not appear severe.. 4. CAD, s/p CAB x 3 in 2007 - stable; on ASA and statin; not on bblocker for bradycardia and not on SHANDRA/ARB due to hx of CKD 5. Bradycardia - BBlocker was stopped; 6. HTN - will start Isosorbide 10mg BID from this AM MAR reviewed * Echo on 01/24/2019 with EF 55-60%, mild UT, severe , MR, and TR. Pt. seen and eval. by me. I have discussed the pt. and plan with the [employer]. I agree with the A/P. Chest clear. RRR. and MR murmur present and unchanged. 2 + edema. I have explained to the pty. and her that she needs to elevate the legs a couple of hours during the day and wear compression hose.. We are trying to adjust the meds for ther BP and I explained to her that if the BP remains significantly elevated then the renal funtion will deteriorate further and the dysnea and CHF will worsen. She seems agreeable to try the CHF clinic. Ranexa has shown some improvement in symptoms with diastolic CHF. Hopefully she will tolerate the nitrates for the BP. She may also benefit from aldactone if the nitrates don't control the BP. elsa
[2019-01-28] MEDS ORDERED: Isosorbide Dinitrate 20 MG TAB PO SCH (09:45)
[2019-01-28] MEDS: NIFEdipine XL 60 MG TAB PO SCH (16:35)
--- NOTE | 2019-01-28 19:18 | PDOC.HOSPP ---
- Subjective Encounter Date: 01/28/19 Encounter Time: 08:00 Subjective: Pt seen for followup re: hypertensive urgency. No complaints. - Objective Vital Signs & Weight: Vital Signs (12 hours) Temp Pulse Resp BP Pulse Ox 01/28/19 16:03 97.3 F L 51 L 16 173/77 H 100 01/28/19 11:20 97.4 F L 56 L 16 139/61 98 01/28/19 09:20 59 L 152/89 H 01/28/19 08:25 98.1 F 55 L 18 199/95 H 98 Weight Weight 139 lb 11.2 oz I&O: 01/27/19 01/28/19 01/29/19 06:59 06:59 06:59 Intake Total 1460 Output Total 0583 675 Balance -465 675 Result Diagrams: 01/26/19 03:31 01/28/19 04:10 Additional Labs: Accuchecks 01/28/19 01/28/19 01/28/19 17:08 10:45 05:48 POC Glucose 104 119 H 144 H 01/27/19 20:22 POC Glucose 218 H Labs and MARs reviewed by me EKG Reviewed by me: Yes (Tele: NSR) Hospitalist ROS - Review of Systems Cardiovascular: denies: chest pain, palpitations, orthopnea, paroxysmal noc. dyspnea, edema, light headedness Gastrointestinal: denies: nausea, vomiting, abdominal pain, diarrhea, constipation, melena, hematochezia - Medication Medications: Active Medications Generic Name Dose Route Start Last Admin Trade Name Freq PRN Reason Stop Dose Admin Aspirin 81 mg 01/25/19 09:00 01/28/19 08:29 Aspirin Chewable PO 81 mg DAILY AISHA Administration Atorvastatin Calcium 40 mg 01/24/19 21:00 01/27/19 21:01 Lipitor PO 40 mg HS AISHA Administration Clonidine 0.2 mg 01/24/19 21:00 01/28/19 08:28 Catapres PO 0.2 mg BID AISHA Administration Enoxaparin Sodium 30 mg 01/25/19 09:00 01/28/19 08:29 Lovenox SC 30 mg 0900 AISHA Administration Furosemide 40 mg 01/27/19 14:00 01/28/19 14:30 Lasix PO 40 mg 0900,1400 AISHA Administration Glimepiride 4 mg 01/25/19 08:00 01/28/19 08:28 Amaryl PO 4 mg QAM-WM AISHA Administration Hydralazine HCl 10 mg 01/24/19 21:26 01/26/19 04:04 Apresoline SLOW IVP 10 mg Q4H PRN Administration SBP > 180 and HR < 70 Hydralazine HCl 75 mg 01/26/19 09:00 01/28/19 14:30 Apresoline PO 75 mg TID AISHA Administration Insulin Human Isoph/Insulin Regular 20 units 01/24/19 21:00 01/28/19 08:29 Humulin 70/30 SC 20 unit BID AISHA Administration Insulin Human Lispro 0 units 01/24/19 10:31 01/27/19 21:01 Humalog SC 2 unit .BEDTIME SLIDING SC PRN Administration Bedtime Correctional Scale Insulin Human Lispro 0 units 01/26/19 18:51 01/27/19 11:51 Humalog SC 5 unit .MILD SLIDING SCALE PRN Administration Mild Correctional Scale Nifedipine 60 mg 01/27/19 17:00 01/28/19 16:35 Procardia Xl PO 60 mg 1700 AISHA Administration Sodium Chloride 10 ml 01/24/19 21:00 01/28/19 08:29 Flush - Normal Saline IVF 10 ml Q12HR AISHA Administration - Exam General Appearance: NAD Eye: anicteric sclera ENT: no oropharyngeal lesions Neck: supple Heart: RRR Respiratory: CTAB Gastrointestinal: soft, non-tender Extremities: no clubbing Psychiatric: normal affect, normal behavior Hosp A/P (1) Hypertensive urgency Code(s): I16.0 - HYPERTENSIVE URGENCY Status: Acute (2) Acute on chronic diastolic CHF (congestive heart failure), NYHA class 3 Code(s): I50.33 - ACUTE ON CHRONIC DIASTOLIC (CONGESTIVE) HEART FAILURE Status : Acute (3) Acute worsening of stage 3 chronic kidney disease Code(s): N18.3 - CHRONIC KIDNEY DISEASE, STAGE 3 (MODERATE) Status: Acute (4) DM2 (diabetes mellitus, type 2) Status: Chronic (5) Dyslipidemia Code(s): E78.5 - HYPERLIPIDEMIA, UNSPECIFIED Status: Chronic - Plan plan discussed w/ family, out of bed/ambulate BP still high, antihypertensives being titrated. Pt is clinically improving. Continue Procardia. Will continue Lipitor. Creatinine improved to 0.98 today. Continue accuchecks and insulin sliding scale. Replace potassium.
[2019-01-28] MEDS: Isosorbide Dinitrate 20 MG TAB PO SCH (21:31)
[2019-01-28] MEDS: Atorvastatin Calcium 40 MG TAB PO SCH (21:31)
[2019-01-28] MEDS: HumaLOG 300 UNITS/3 ML VIAL SC PRN (21:31)
[2019-01-29] MEDS ORDERED: hydrALAZINE 20 MG/ML VIAL ONE (03:37)
[2019-01-29] MEDS: hydrALAZINE 25 MG TAB PO SCH ×3 (08:40→19:53)
[2019-01-29] MEDS: cloNIDine 0.2 MG TAB PO SCH ×2 (08:40→19:57)
[2019-01-29] MEDS: Isosorbide Dinitrate 20 MG TAB PO SCH ×2 (08:40→19:57)
[2019-01-29] MEDS: HumuLIN 70/30 (300 UNITS/3 ML VIAL) SC SCH ×2 (08:40→20:57)
[2019-01-29] MEDS: Furosemide 40 MG TAB PO SCH ×2 (08:40→14:48)
[2019-01-29] MEDS: Aspirin Chewable 81 MG TAB PO SCH (08:40)
[2019-01-29] MEDS: Glimepiride 4 MG TAB PO SCH (08:40)
[2019-01-29] MEDS: Potassium Chloride 20 MEQ TAB PO SCH (08:40)
[2019-01-29] MEDS: Enoxaparin Sodium 30 MG/0.3 ML SYRINGE SC SCH (08:40)
--- NOTE | 2019-01-29 15:00 | PDOC.HOSPP ---
- Subjective Encounter Date: 01/29/19 Encounter Time: 08:00 Subjective: Pt seen for followup re: hypertensive urgency. Feels well, no complaints. - Objective Vital Signs & Weight: Vital Signs (12 hours) Pulse BP 01/29/19 14:47 54 L 159/79 H Weight Weight 139 lb 11.2 oz I&O: 01/28/19 01/29/19 01/30/19 06:59 06:59 06:59 Intake Total 1460 970 Output Total 3070 0940 Balance -465 -1955 Result Diagrams: 01/26/19 03:31 01/28/19 04:10 Additional Labs: Accuchecks 01/29/19 01/29/19 01/28/19 10:15 05:18 20:39 POC Glucose 190 H 164 H 220 H 01/28/19 17:08 POC Glucose 104 EKG Reviewed by me: Yes (Tele: NSR) Hospitalist ROS - Review of Systems Cardiovascular: denies: chest pain, palpitations, orthopnea, paroxysmal noc. dyspnea, edema, light headedness Gastrointestinal: denies: nausea, vomiting, abdominal pain, diarrhea, constipation, melena, hematochezia - Medication Medications: Active Medications Generic Name Dose Route Start Last Admin Trade Name Freq PRN Reason Stop Dose Admin Aspirin 81 mg 01/25/19 09:00 01/28/19 08:29 Aspirin Chewable PO 81 mg DAILY AISHA Administration Atorvastatin Calcium 40 mg 01/24/19 21:00 01/28/19 21:31 Lipitor PO 40 mg HS AISHA Administration Clonidine 0.2 mg 01/24/19 21:00 01/28/19 21:31 Catapres PO 0.2 mg BID AISHA Administration Enoxaparin Sodium 30 mg 01/25/19 09:00 01/28/19 08:29 Lovenox SC 30 mg 0900 AISHA Administration Furosemide 40 mg 01/27/19 14:00 01/29/19 14:48 Lasix PO 40 mg 0900,1400 AISHA Administration Glimepiride 4 mg 01/25/19 08:00 01/28/19 08:28 Amaryl PO 4 mg QAM-WM AISHA Administration Hydralazine HCl 10 mg 01/24/19 21:26 01/26/19 04:04 Apresoline SLOW IVP 10 mg Q4H PRN Administration SBP > 180 and HR < 70 Hydralazine HCl 75 mg 01/26/19 09:00 01/29/19 14:47 Apresoline PO 75 mg TID AISHA Administration Insulin Human Isoph/Insulin Regular 20 units 01/24/19 21:00 01/28/19 21:52 Humulin 70/30 SC Not Given BID AISHA Insulin Human Lispro 0 units 01/24/19 10:31 01/28/19 21:31 Humalog SC 2 unit .BEDTIME SLIDING SC PRN Administration Bedtime Correctional Scale Insulin Human Lispro 0 units 01/26/19 18:51 01/27/19 11:51 Humalog SC 5 unit .MILD SLIDING SCALE PRN Administration Mild Correctional Scale Isosorbide Dinitrate 10 mg 01/28/19 21:00 01/28/19 21:31 Isordil PO 10 mg BID AISHA Administration Nifedipine 60 mg 01/27/19 17:00 01/28/19 16:35 Procardia Xl PO 60 mg 1700 AISHA Administration Sodium Chloride 10 ml 01/24/19 21:00 01/28/19 21:31 Flush - Normal Saline IVF 10 ml Q12HR AISHA Administration - Exam General Appearance: NAD Eye: anicteric sclera ENT: normocephalic atraumatic, moist mucosa Neck: no thyromegaly, no lymphadenopathy Heart: RRR, no rubs Respiratory: CTAB, no ronchi Gastrointestinal: soft, normal bowel sounds Psychiatric: normal affect, normal behavior Hosp A/P (1) Hypertensive urgency Code(s): I16.0 - HYPERTENSIVE URGENCY Status: Acute (2) Acute on chronic diastolic CHF (congestive heart failure), NYHA class 3 Code(s): I50.33 - ACUTE ON CHRONIC DIASTOLIC (CONGESTIVE) HEART FAILURE Status : Acute (3) Acute worsening of stage 3 chronic kidney disease Code(s): N18.3 - CHRONIC KIDNEY DISEASE, STAGE 3 (MODERATE) Status: Acute (4) DM2 (diabetes mellitus, type 2) Status: Chronic (5) Dyslipidemia Code(s): E78.5 - HYPERLIPIDEMIA, UNSPECIFIED Status: Chronic - Plan plan discussed w/ family, out of bed/ambulate BP still high, antihypertensives being titrated. Continue Lipitor. Brittle diabetic.
[2019-01-29] MEDS: NIFEdipine XL 60 MG TAB PO SCH (18:20)
[2019-01-29 19:01] LABS: Anion Gap 13 mmol/L (10-20); BUN (Urea Nitrogen) 25 mg/dL (9.8-20.1); Calc. Creatinine Clearance 36 mL/min (70-130); Calcium 9.7 mg/dL (7.8-10.44); Carbon Dioxide 28 mmol/L (23-31); Chloride 103 mmol/L (98-107); Estimated GFR-MDRD 44; Glucose 160 mg/dL (83-110); Potassium 3.7 mmol/L (3.5-5.1); Sodium 140 mmol/L (136-145)
[2019-01-29] MEDS: Atorvastatin Calcium 40 MG TAB PO SCH (19:55)
[2019-01-29] MEDS ORDERED: Minoxidil 2.5 MG TAB PO SCH (21:00)
[2019-01-30 06:58] LABS: #Eosinphils 0.3 thou/uL (0.0-0.7); #Lymphocytes 1.6 thou/uL (1.20-3.40); #Monocytes 0.4 thou/uL (0.11-0.59); #Neutrophils 4.6 thou/uL (1.40-6.50); %Basophils 0.3 % (0.0-1.0); %Lymphocytes 22.6 % (21.0-51.0); %Monocytes 6.2 % (0.0-10.0); Hemoglobin 11.4 g/dL (12.0-16.0); Mean Corpuscular HGB CONC 32.6 g/dL (32.0-36.0); Mean Platelet Volume 8.5 fL (7.4-10.4); Platelet Count 197 thou/uL (130-400); RBC Distribution Width 13.6 % (11.5-14.5); Red Blood Cell (RBC) Count 3.79 mill/uL (4.20-5.40); White Blood Cell (WBC) Count 6.9 thou/uL (4.8-10.8)
[2019-01-30 07:20] LABS: Anion Gap 15 mmol/L (10-20); BUN (Urea Nitrogen) 36 mg/dL (9.8-20.1); Calc. Creatinine Clearance 30 mL/min (70-130); Carbon Dioxide 25 mmol/L (23-31); Chloride 105 mmol/L (98-107); Estimated GFR-MDRD 37; Glucose 152 mg/dL (83-110); Potassium 4.2 mmol/L (3.5-5.1); Sodium 141 mmol/L (136-145)
[2019-01-30] MEDS: Glimepiride 4 MG TAB PO SCH (09:17)
[2019-01-30] MEDS: hydrALAZINE 25 MG TAB PO SCH ×2 (09:17→14:34)
[2019-01-30] MEDS: Isosorbide Dinitrate 20 MG TAB PO SCH (09:18)
[2019-01-30] MEDS: Aspirin Chewable 81 MG TAB PO SCH (09:18)
[2019-01-30] MEDS: Potassium Chloride 20 MEQ TAB PO SCH (09:18)
[2019-01-30] MEDS: Furosemide 40 MG TAB PO SCH ×2 (09:18→13:23)
[2019-01-30] MEDS: cloNIDine 0.2 MG TAB PO SCH (09:18)
[2019-01-30] MEDS: HumuLIN 70/30 (300 UNITS/3 ML VIAL) SC SCH (09:19)
[2019-01-30] MEDS: Enoxaparin Sodium 30 MG/0.3 ML SYRINGE SC SCH (09:19)
--- NOTE | 2019-01-30 11:20 | DIS ---
DATE OF ADMISSION: 01/24/2019 DATE OF DISCHARGE: 01/30/2019 PRIMARY CARE PROVIDER: Dr. Love Zavala. DISCHARGE DIAGNOSES: 1. Acute on chronic diastolic congestive heart failure, NYHA class III. 2. Acute on chronic kidney disease, stage 3. 3. Hypertensive urgency. CONDITION OF PATIENT ON THE DAY OF DISCHARGE: Stable. I assessed Ms. Hoff on the day of discharge. She denies any chest pain or shortness of breath. She is asymptomatic. DISCHARGE MEDICATIONS: 1. Aspirin 325 mg daily. 2. Lipitor 40 mg at bedtime. 3. Clonidine 0.2 mg 2 times a day. 4. Fenofibrate 160 mg daily. 5. Lasix 40 mg 2 times a day. 6. Humulin 70/30, 24 units daily. 7. Potassium chloride 20 mEq daily. 8. Glimepiride 4 mg daily. 9. Hydralazine 75 mg 3 times a day. 10. Isosorbide dinitrate 10 mg 2 times a day. 11. Minoxidil 5 mg at bedtime. 12. Procardia XL 60 mg daily. CONSULTATIONS DURING THIS HOSPITALIZATION: 1. Cardiology, Dr. Griffin. 2. Nephrology, Dr. Madison. POST ACUTE CARE FOLLOWUP: 1. With Cardiology Dr. Horvath on February 06, 2019, at 2:15 p.m. 2. With primary care provider on February 11, 2019, at 2:30 p.m. 3. With Nephrology Service, Dr. Madison in 1 week's time. HOSPITAL COURSE: Ms. Hoff is a pleasant 83-year-old lady who was admitted to [facility] on January 24, 2019, for congestive heart failure exacerbation and acute on chronic renal failure. Please refer to Dr. Arana's history and physical note for further details. She was seen by Cardiology and Nephrology Services. Nephrotoxic medications were held. 2D echocardiogram showed left ventricular ejection fraction of 55% to 60%, severe aortic stenosis and severe tricuspid regurgitation, and mild pulmonic regurgitation. Cardiology note indicated that aortic stenosis was likely mild and number showing severe aortic stenosis likely from juxtaposition of mitral regurgitation wave. She improved in terms of both renal failure and congestive heart failure exacerbation. However, she had elevated blood pressures. Her blood pressure medications were titrated. She has been cleared for discharge by Cardiology Service on January 29, 2019. She has been advised to keep track of her blood pressure, heart rate and blood sugars 3 times a day and show the readings to primary care provider. Many thanks for allowing me to participate in your patient's care. Please feel free to contact me with any questions or concerns. LABORATORY DATA: On the day of discharge, she has sodium 141, potassium 4.2, creatinine 1.35, blood urea nitrogen 36. White count 6900, hemoglobin 11.4, and platelet count 197,000. DISCHARGE DESTINATION: Home. TIME SPENT: Total amount of time spent coordinating this discharge is 20 minutes. Job ID: [id number]
--- NOTE | 2019-01-30 11:30 | PDOC.CPN ---
- Subjective Date: 01/30/19 Time: 11:38 Interval history: The pt seen and examined. No overnight events. No cardiac complaints. - Objective Allergies/Adverse Reactions: Allergies Allergy/AdvReac Type Severity Reaction Status Date / Time No Known Allergies Allergy Verified 08/01/12 18:18 Visit Medications: Current Medications Acetaminophen (Tylenol) 650 mg PO Q4H PRN PRN Reason: Headache/Fever/Mild Pain (1-3) Aspirin (Aspirin Chewable) 81 mg PO DAILY [facility] Last Admin: 01/30/19 09:18 Dose: 81 mg Atorvastatin Calcium (Lipitor) 40 mg PO HS [facility] Last Admin: 01/29/19 19:55 Dose: 40 mg Bisacodyl (Dulcolax) 10 mg [place] DAILYPRN PRN PRN Reason: Constipation Clonidine (Catapres) 0.2 mg PO BID [facility] Last Admin: 01/30/19 09:18 Dose: 0.2 mg Dextrose/Water (Dextrose 50%) 25 gm SLOW IVP PRN PRN PRN Reason: Hypoglycemia Enoxaparin Sodium (Lovenox) 30 mg SC 0900 [facility] Last Admin: 01/30/19 09:19 Dose: 30 mg Furosemide (Lasix) 40 mg PO 0900,1400 [facility] Last Admin: 01/30/19 09:18 Dose: 40 mg Glimepiride (Amaryl) 4 mg PO QAM-WM [facility] Last Admin: 01/30/19 09:17 Dose: 4 mg Glucagon (Glucagon) 1 mg IM PRN PRN PRN Reason: Hypoglycemia Guaifenesin/Dextromethorphan (Robitussin Dm) 15 ml PO Q4H PRN PRN Reason: Cough Hydralazine HCl (Apresoline) 10 mg SLOW IVP Q4H PRN PRN Reason: SBP > 180 and HR < 70 Last Admin: 01/26/19 04:04 Dose: 10 mg Hydralazine HCl (Apresoline) 75 mg PO TID [facility] Last Admin: 01/30/19 09:17 Dose: 75 mg Dextrose/Water (D5w) 1,000 mls @ 0 mls/hr IV .Q0M PRN PRN Reason: Hypoglycemia Insulin Human Isoph/Insulin Regular (Humulin 70/30) 20 units SC BID [facility] Last Admin: 01/30/19 09:19 Dose: 20 unit Insulin Human Lispro (Humalog) 0 units SC .BEDTIME SLIDING SC PRN PRN Reason: Bedtime Correctional Scale Last Admin: 01/28/19 21:31 Dose: 2 unit Insulin Human Lispro (Humalog) 0 units SC .MILD SLIDING SCALE PRN PRN Reason: Mild Correctional Scale Last Admin: 01/27/19 11:51 Dose: 5 unit Isosorbide Dinitrate (Isordil) 10 mg PO BID [facility] Last Admin: 01/30/19 09:18 Dose: 10 mg Minoxidil (Minoxidil) 5 mg PO HS [facility] Last Admin: 01/29/19 19:56 Dose: 5 mg Nifedipine (Procardia Xl) 60 mg PO 1700 [facility] Last Admin: 01/29/19 18:20 Dose: 60 mg Potassium Chloride (K-Dur) 40 meq PO QAM-WM [facility] Last Admin: 01/30/19 09:18 Dose: 40 meq Senna/Docusate Sodium (Senokot S) 2 tab PO BIDPRN PRN PRN Reason: Constipation Sodium Chloride (Flush - Normal Saline) 10 ml IVF Q12HR [facility] Last Admin: 01/30/19 09:19 Dose: 10 ml Sodium Chloride (Flush - Normal Saline) 10 ml IVF PRN PRN PRN Reason: Saline Flush Vital Signs & Weight: Vital Signs Temp Pulse Resp BP BP BP Pulse Ox 01/30/19 09:18 162/72 H 01/30/19 09:17 68 162/72 H 01/30/19 08:00 97.6 F 68 16 162/72 H 97 01/30/19 03:11 98.5 F 68 20 123/58 L 98 01/30/19 00:00 64 172/73 H Weight 130 lb 12.8 oz - Physical Exam General: alert & oriented x3 Cardiac: regular rate and rhythm Lungs: clear to auscultation, decreased breath sounds - Labs Result Diagrams: 01/30/19 06:44 01/30/19 06:44 Troponin/CKMB CK-MB (CK-2) 4.3 ng/mL (0-6.6) 01/24/19 07:50 Troponin I 0.053 ng/mL (< 0.028) H 01/24/19 13:43 - Telemetry Sinus rhythms and dysrhythmias: sinus rhythm - Assessment/Plan Assessment/Plan: 1. Acute on chronic diastolic HF - stable with RA with Lasix 40mg PO BID; BBlocker was stopped due to bradycardia; SHANDRA was on hold due to hx of CKD;On Isosorbide for Diaslotic HF and HTN management; may start Ranexa and Aldactone. 2, Severe MR - may need a MV clip for the severe MR. 3. Aortic stenosis - likely mild, numbers showing severe likely from juxtaposition of mitral regurgitation wave, does not appear severe.. 4. CAD, s/p CAB x 3 in 2006 - stable; on ASA and statin; not on bblocker for bradycardia and not on SHANDRA/ARB due to hx of CKD 5. Bradycardia - BBlocker was stopped; 6. HTN - slowly improving with current meds MAR reviewed * Echo on 01/24/2019 with EF 55-60%, mild OH, severe , MR, and TR. * She seems agreeable to try the CHF clinic. * Ranexa has shown some improvement in symptoms with diastolic CHF. Hopefully she will tolerate the nitrates for the BP. She may also benefit from aldactone if the nitrates don't control the BP. * The pt will f/u with Dr Horvath' office within 1-2 wks
[2019-01-30 13:15] VITALS: TEMP 97.4
[2019-01-30] MEDS: HumaLOG 300 UNITS/3 ML VIAL SC PRN (13:24)
[2019-01-30 14:39] VITALS: BP 153/70
== END 2019-01-30 15:24 | disposition home or self-care (01) | DRG 682 ==
LOC: ERS 07:22 → 2NO 11:39
PROVIDERS: ADMIT Internal Medicine; ATTEND Internal Medicine
DX: N17.9 Acute kidney failure, unspecified (principal); I50.33 Acute on chronic diastolic (congestive) heart failure; I13.0 Hypertensive heart and chronic kidney disease with heart failure and stage 1 through stage 4 chronic kidney disease, or unspecified chronic kidney disease; I45.2 Bifascicular block; N18.3 Chronic kidney disease, stage 3 (moderate); I16.0 Hypertensive urgency; E11.22 Type 2 diabetes mellitus with diabetic chronic kidney disease; E78.5 Hyperlipidemia, unspecified; I08.0 Rheumatic disorders of both mitral and aortic valves; I25.10 Atherosclerotic heart disease of native coronary artery without angina pectoris; R00.1 Bradycardia, unspecified; E87.6 Hypokalemia; Z96.659 Presence of unspecified artificial knee joint; Z95.1 Presence of aortocoronary bypass graft; Z90.710 Acquired absence of both cervix and uterus; Z79.82 Long term (current) use of aspirin; Z79.84 Long term (current) use of oral hypoglycemic drugs; Z79.899 Other long term (current) drug therapy
CPT/HCPCS: 36415; 36416; 71045; 76770; 80048; 80053; 81001; 82553; 83880; 84443; 84484; 85025; 93005; 93306; 93798; 94760; J0360; J1650; J1815; J1940

== ENCOUNTER 2019-02-20 10:14 | Emergency (ER) | payer MEDICARE ==
[2019-02-20] MEDS ORDERED: Furosemide 40 MG/4 ML VIAL ONE ×2 (10:27→12:38)
--- NOTE | 2019-02-20 10:49 | RAD ---
Portable upright frontal chest radiograph: 02/20/2019 COMPARISON: 01/24/2019 HISTORY: Shortness of breath FINDINGS: Cardiac silhouette is enlarged. Pulmonary vascular congestion noted. Midline sternotomy wir es are present. No pneumothorax. There is prominent degenerative change involving the glenohumeral joint on the right. There is marked prominence of the right hilar shadow, etiology uncertain. This is likely on the basis of vascular prominence. PA and lateral imaging of the chest is advised however to exclude an underlying mass IMPRESSION: Prominent cardiac silhouette with pulmonary vascular congestion. Prominence of the right hilar shadow as detailed above.
[2019-02-20 11:19] LABS: #Eosinphils 0.2 thou/uL (0.0-0.7); #Lymphocytes 0.7 thou/uL (1.20-3.40); #Monocytes 0.3 thou/uL (0.11-0.59); #Neutrophils 5.9 thou/uL (1.40-6.50); %Eosinophils 3.1 % (0.0-10.0); %Lymphocytes 9.6 % (21.0-51.0); %Monocytes 4.8 % (0.0-10.0); %Neutrophils 82.6 % (42.0-75.0); Mean Corpuscular HGB CONC 33.3 g/dL (32.0-36.0); Mean Corpuscular Hemoglobin 29.9 pg (27.0-31.0); Mean Corpuscular Volume 89.8 fL (78.0-98.0); Mean Platelet Volume 8.5 fL (7.4-10.4); Platelet Count 176 thou/uL (130-400); RBC Distribution Width 13.3 % (11.5-14.5); Red Blood Cell (RBC) Count 3.33 mill/uL (4.20-5.40); White Blood Cell (WBC) Count 7.1 thou/uL (4.8-10.8)
[2019-02-20 11:49] LABS: ALT (SGPT) 25 U/L (8-55); AST (SGOT) 48 U/L (5-34); Albumin 3.9 g/dL (3.4-4.8); Alkaline Phosphatase 98 U/L (40-110); Anion Gap 16 mmol/L (10-20); BUN (Urea Nitrogen) 33 mg/dL (9.8-20.1); Bilirubin, Total 0.6 mg/dL (0.2-1.2); CK (CPK) 76 U/L (29-168); Calc. Creatinine Clearance 0 mL/min (70-130); Calcium 9.4 mg/dL (7.8-10.44); Carbon Dioxide 24 mmol/L (23-31); Chloride 102 mmol/L (98-107); Estimated GFR-MDRD 32; Globulin 2.9 g/dL (2.4-3.5); Glucose 157 mg/dL (83-110); Potassium 4.6 mmol/L (3.5-5.1); Protein, Total 6.8 g/dL (6.0-8.3); Sodium 137 mmol/L (136-145)
== END 2019-02-20 12:47 | disposition home or self-care (01) ==
LOC: ERS 10:14
DX: I11.0 Hypertensive heart disease with heart failure (principal); I50.9 Heart failure, unspecified; I25.10 Atherosclerotic heart disease of native coronary artery without angina pectoris; E11.9 Type 2 diabetes mellitus without complications; E78.5 Hyperlipidemia, unspecified; Z79.4 Long term (current) use of insulin; Z79.899 Other long term (current) drug therapy; Z79.82 Long term (current) use of aspirin
CPT/HCPCS: 36415; 71045; 80053; 82550; 82553; 83880; 84484; 85025; 93005; 96374; 96376; J1940

== ENCOUNTER 2019-02-22 06:03 | Inpatient (IN) | payer MEDICARE ==
[2019-02-22 06:59] LABS: #Eosinphils 0.2 thou/uL (0.0-0.7); #Lymphocytes 0.9 thou/uL (1.20-3.40); #Monocytes 0.4 thou/uL (0.11-0.59); #Neutrophils 4.5 thou/uL (1.40-6.50); %Basophils 0.7 % (0.0-1.0); %Eosinophils 3.9 % (0.0-10.0); %Lymphocytes 15.1 % (21.0-51.0); %Monocytes 5.9 % (0.0-10.0); %Neutrophils 74.3 % (42.0-75.0); Hemoglobin 9.9 g/dL (12.0-16.0); Mean Corpuscular HGB CONC 32.8 g/dL (32.0-36.0); Mean Corpuscular Hemoglobin 29.5 pg (27.0-31.0); Mean Corpuscular Volume 89.8 fL (78.0-98.0); Mean Platelet Volume 7.9 fL (7.4-10.4); Platelet Count 189 thou/uL (130-400); RBC Distribution Width 13.4 % (11.5-14.5); Red Blood Cell (RBC) Count 3.36 mill/uL (4.20-5.40); White Blood Cell (WBC) Count 6.1 thou/uL (4.8-10.8)
[2019-02-22 07:22] LABS: ALT (SGPT) 19 U/L (8-55); AST (SGOT) 21 U/L (5-34); Albumin 3.8 g/dL (3.4-4.8); Alkaline Phosphatase 91 U/L (40-110); Anion Gap 12 mmol/L (10-20); BUN (Urea Nitrogen) 32 mg/dL (9.8-20.1); Bilirubin, Total 0.8 mg/dL (0.2-1.2); Calc. Creatinine Clearance 0 mL/min (70-130); Calcium 9.6 mg/dL (7.8-10.44); Carbon Dioxide 27 mmol/L (23-31); Chloride 101 mmol/L (98-107); Estimated GFR-MDRD 31; Globulin 2.9 g/dL (2.4-3.5); Glucose 188 mg/dL (83-110); Potassium 4.2 mmol/L (3.5-5.1); Protein, Total 6.7 g/dL (6.0-8.3); Sodium 136 mmol/L (136-145)
[2019-02-22 07:46] LABS: CKMB 3.1 ng/mL (0-6.6)
--- NOTE | 2019-02-22 07:48 | RAD ---
EXAM: Single view of the chest HISTORY: CHF exacerbation COMPARISON: 02/20/2019 FINDINGS: Single view of the chest shows an enlarged but stable cardiomediastinal silhouette. The pa tient is status post sternotomy. There is no evidence of consolidation, mass, or pleural effusion. Degenerative changes are seen in the spine and right shoulder. IMPRESSION: Stable exam
[2019-02-22] MEDS ORDERED: Furosemide 100 MG/10 ML VIAL ONE (09:03)
[2019-02-22 10:22] LABS: Troponin I 0.065 ng/mL (< 0.028)
[2019-02-22] MEDS ORDERED: Acetaminophen 500 MG TAB ONE (12:09)
[2019-02-22 13:16] LABS: Troponin I 0.037 ng/mL (< 0.028)
[2019-02-22 13:28] LABS: Bilirubin Negative (Negative); Blood, Urine Negative (Negative); Clarity Clear (Clear); Glucose, Urine (Dipstick) Normal (Negative); Leukocyte Negative Leu/uL (Negative); Nitrite Negative (Negative); Protein, Urine (Dipstick) Negative (Neg-Trace); Urobilinogen Normal mg/dL (Less than 2)
--- NOTE | 2019-02-22 15:57 | HP ---
PRIMARY CARE PHYSICIAN: Love Zavala MD CHIEF COMPLAINT: Shortness of breath. HISTORY OF PRESENT ILLNESS: Ms. Hoff is a very pleasant 83-year-old female, who has a history of hypertension, diabetes, and chronic diastolic heart failure. She was recently discharged from the hospital little over a week ago on . She was admitted for acute congestive heart failure exacerbation at that time. She says she never really got all the fluid off and since she has been home, she has noted increasing lower extremity edema and then this morning, at about 5:30 a.m., she awoke from sleep, short of breath. Her says that she was so short of breath. She was shaking the bed, trying to breathe. The patient denied any chest pain. No nausea. No vomiting. She denies any palpitations. She does admit to having to wake up through the night short of breath almost nightly. As a result, she came to the ER for evaluation, where she is being admitted for CHF exacerbation. She says that she has seen Dr. Castro in the past. She said that she was having some type of rhythm problem and needed to see Dr. Olmstead. According to her, the patient's and also she has known severe aortic stenosis and mitral regurgitation and she says that they were waiting to deal with her heart rhythm problem before they dealt with the valve problems. REVIEW OF SYSTEMS: All systems were reviewed and are negative except for that mentioned in the history of present illness. PAST MEDICAL HISTORY: Significant for diabetes mellitus, hypertension, hyperlipidemia, coronary artery disease, and Smart's palsy. PAST SURGICAL HISTORY: She has had bypass surgery 12 years ago, hysterectomy and it looks like she has had knee replacement. ALLERGIES: NO KNOWN DRUG ALLERGIES. SOCIAL HISTORY: She is . She would like to be a full code. Her is her surrogate decision maker. She has 4 children. She is a nonsmoker and nondrinker. She lives with fairly sedentary lifestyle, but she says she is able to do some cooking and cleaning. FAMILY HISTORY: Significant for diabetes mellitus in her son. Her son also has a defibrillator. Her daughter has a coronary stent. CURRENT MEDICATIONS: She says these are the same as her past admission and include; 1. Bumetanide 2 mg twice a day. 2. Hydralazine 50 mg 2 tablets 3 times a day. 3. Enteric-coated aspirin 325 mg daily. 4. Eliquis 2.5 mg twice a day. 5. Atorvastatin 40 mg daily. 6. Fenofibrate 160 mg daily. 7. Clonidine 0.2 mg twice a day. 8. Glimepiride 4 mg one tablet twice a day. 9. Carvedilol 12.5 mg twice daily. 10. Minoxidil 2.5 mg 2 tablets daily. 11. Nifedipine extended release 60 mg daily. 12. Torsemide 40 mg twice a day. PHYSICAL EXAMINATION: GENERAL: She is alert and oriented. She is in some mild distress due to lower abdominal pain. She is well developed and well nourished. VITAL SIGNS: Blood pressure 185/78, heart rate 72, respiratory rate of 22, temperature is 98, and O2 saturation is 96% on room air. HEENT: Pupils are equal, round, and reactive. Extraocular muscles are intact. Her sclerae are anicteric. Throat; no erythema, no exudates. She is edentulous. NECK: She does have increased jugular venous distention. There are no bruits. LUNGS: She has some rales at the bases, but no wheezing, no rhonchi. CARDIOVASCULAR: Heart rate is irregular with occasional PVC. She does have grade 2/6 systolic murmur heard throughout the precordium. ABDOMEN: Obese. It is soft. She had some lower abdominal fullness as well as some mild lower abdominal tenderness in the suprapubic region. No rebound. No guarding. No organomegaly. EXTREMITIES: She has 1 to 2+ edema, but no calf tenderness. Some mild erythema. No joint effusions. NEUROLOGIC: The exam is grossly nonfocal. SKIN AND INTEGUMENT: No significant skin changes. No rash. DIAGNOSTIC DATA: Her EKG is sinus rhythm. She has findings consistent with a right bundle-branch block, some T-wave inversions in I and aVL as well as V2 and V5. Chest x-ray, she has some mild cardiomegaly. Sternotomy wires are in place and increased pulmonary vascular congestion bilaterally. This is by my reading as well as the EKG by my reading. The sodium was 136, potassium 4.2, chloride is 101, CO2 is 27, BUN of 32, creatinine 1.6, and glucose is 118. Troponin 0.056. Natriuretic peptide is 853. White blood cell count 6.1, hemoglobin 9.9, hematocrit of 30.2, and platelet count is 189. ASSESSMENT AND PLAN: 1. This is a pleasant 83-year-old female, who presents with acute on chronic congestive heart failure exacerbation due to diastolic dysfunction and valvular heart disease. She will be admitted, started on IV Lasix. Continue her selected home medications status and we will consult Cardiology to see if she is a candidate to have this EP study done in the hospital as well as consideration for valve replacement. 2. Hypertension. Her blood pressure is slightly elevated. We will reconcile and restart her home medications and titrate as needed. 3. Chronic anemia. This does appear to be stable and chronic and it is a normocytic anemia. I suspect due to anemia of chronic disease. If this has not been evaluated, we will check iron studies. 4. Diabetes mellitus. Once again reconcile and restart her medications and then place her on a sliding scale as well. Job ID: [id number]
[2019-02-22] MEDS ORDERED: Dextrose 5% in Water 1,000 ML IV PRN (19:08)
[2019-02-22] MEDS ORDERED: HumaLOG 300 UNITS/3 ML VIAL SC PRN (19:08)
[2019-02-22] MEDS ORDERED: Acetaminophen 325 MG TAB PO PRN (19:08)
[2019-02-22] MEDS ORDERED: Dextrose 50% Abboject 50 ML SYRINGE SLOW IVP PRN (19:08)
[2019-02-22] MEDS ORDERED: NIFEdipine XL 60 MG TAB PO SCH (19:30)
[2019-02-22] MEDS ORDERED: Furosemide 40 MG/4 ML VIAL SLOW IVP SCH (19:30)
[2019-02-22] MEDS: cloNIDine 0.2 MG TAB PO SCH (20:29)
[2019-02-22] MEDS: Famotidine 20 MG TAB PO SCH (20:29)
[2019-02-22] MEDS: Minoxidil 2.5 MG TAB PO SCH (20:29)
[2019-02-22] MEDS: Atorvastatin Calcium 40 MG TAB PO SCH (20:29)
[2019-02-23 04:59] LABS: #Basophils 0.1 thou/uL (0.0-0.2); #Eosinphils 0.3 thou/uL (0.0-0.7); #Lymphocytes 1.1 thou/uL (1.20-3.40); #Monocytes 0.5 thou/uL (0.11-0.59); #Neutrophils 3.6 thou/uL (1.40-6.50); %Basophils 1.3 % (0.0-1.0); %Eosinophils 4.6 % (0.0-10.0); %Lymphocytes 20.1 % (21.0-51.0); %Monocytes 8.4 % (0.0-10.0); %Neutrophils 65.7 % (42.0-75.0); Hemoglobin 9.6 g/dL (12.0-16.0); Mean Corpuscular HGB CONC 32.6 g/dL (32.0-36.0); Mean Corpuscular Hemoglobin 29.5 pg (27.0-31.0); Mean Corpuscular Volume 90.4 fL (78.0-98.0); Mean Platelet Volume 8.4 fL (7.4-10.4); Platelet Count 194 thou/uL (130-400); RBC Distribution Width 13.5 % (11.5-14.5); Red Blood Cell (RBC) Count 3.24 mill/uL (4.20-5.40); White Blood Cell (WBC) Count 5.5 thou/uL (4.8-10.8)
[2019-02-23 05:22] LABS: Anion Gap 15 mmol/L (10-20); BUN (Urea Nitrogen) 30 mg/dL (9.8-20.1); Calc. Creatinine Clearance 32 mL/min (70-130); Calcium 9.2 mg/dL (7.8-10.44); Carbon Dioxide 25 mmol/L (23-31); Chloride 104 mmol/L (98-107); Estimated GFR-MDRD 35; Glucose 182 mg/dL (83-110); Potassium 3.8 mmol/L (3.5-5.1); Sodium 140 mmol/L (136-145)
[2019-02-23] MEDS: Furosemide 40 MG/4 ML VIAL SLOW IVP SCH ×2 (06:03→14:23)
[2019-02-23] MEDS ORDERED: Carvedilol 6.25 MG TAB PO SCH (09:00)
[2019-02-23] MEDS: Glimepiride 4 MG TAB PO SCH (09:10)
[2019-02-23] MEDS: cloNIDine 0.2 MG TAB PO SCH ×2 (09:10→22:12)
[2019-02-23] MEDS: Famotidine 20 MG TAB PO SCH ×2 (09:10→22:12)
[2019-02-23] MEDS: hydrALAZINE 25 MG TAB PO SCH ×3 (09:51→22:11)
[2019-02-23] MEDS: Potassium Chloride 20 MEQ TAB PO SCH (09:53)
[2019-02-23] MEDS: Isosorbide Dinitrate 5 MG TAB PO SCH ×2 (09:53→22:12)
--- NOTE | 2019-02-23 11:36 | PDOC.HOSPP ---
- Subjective Encounter Date: 02/23/19 Encounter Time: 11:35 Subjective: Ms. Hoff was seen today in follow-up of CHF exacerbation. She says she feels a little better today. She notes some difficulty breathing through her nose. - Objective Vital Signs & Weight: Vital Signs (12 hours) Temp Pulse Resp BP BP Pulse Ox 02/23/19 09:13 71 16 02/23/19 07:29 97.5 F L 65 22 H 144/65 H 94 L 02/23/19 03:49 97.6 F 76 18 194/84 H 95 02/23/19 02:00 160/68 H Weight Weight 151 lb 1 oz I&O: 02/22/19 02/23/19 02/24/19 06:59 06:59 06:59 Intake Total 260 Output Total 775 Balance -515 Result Diagrams: 02/23/19 04:42 02/23/19 04:42 Additional Labs: Accuchecks 02/23/19 02/23/19 02/22/19 10:20 05:42 20:29 POC Glucose 348 H 174 H 218 H Hospitalist ROS - Medication Medications: Active Medications Generic Name Dose Route Start Last Admin Trade Name Freq PRN Reason Stop Dose Admin Albuterol/Ipratropium 3 ml 02/23/19 08:28 02/23/19 09:13 Duoneb NEB 3 ml [id number] PRN Administration SOB &/or Wheezing Atorvastatin Calcium 40 mg 02/22/19 21:00 02/22/19 20:29 Lipitor PO 40 mg HS AISHA Administration Carvedilol 12.5 mg 02/23/19 09:00 02/23/19 09:53 Coreg PO 12.5 mg BID AISHA Administration Clonidine 0.2 mg 02/22/19 21:00 02/23/19 09:10 Catapres PO 0.2 mg BID AISHA Administration Famotidine 20 mg 02/22/19 21:00 02/23/19 09:10 Pepcid PO 20 mg BID AISHA Administration Furosemide 40 mg 02/23/19 06:00 02/23/19 06:03 Lasix SLOW IVP 40 mg 0600,1400 AISHA Administration Glimepiride 4 mg 02/23/19 08:00 02/23/19 09:10 Amaryl PO 4 mg QAM-WM AISHA Administration Hydralazine HCl 100 mg 02/23/19 09:00 02/23/19 09:51 Apresoline PO 100 mg TID AISHA Administration Isosorbide Dinitrate 10 mg 02/23/19 09:00 02/23/19 09:53 Isordil PO 10 mg BID AISHA Administration Minoxidil 5 mg 02/22/19 21:00 02/22/19 20:29 Minoxidil PO 5 mg HS AISHA Administration Potassium Chloride 20 meq 02/23/19 09:00 02/23/19 09:53 K-Dur PO 20 meq DAILY AISHA Administration - Exam Eye: PERRL Heart: RRR, no gallops, no rubs, normal peripheral pulses, III/IV Respiratory: CTAB, rales (+ occasional wheeze and rales at the bases), wheezes Gastrointestinal: soft, non-tender, non-distended, normal bowel sounds, no palpable masses, no hepatomegaly Extremities: no cyanosis, 2+ LE edema Hosp A/P (1) Acute on chronic diastolic CHF (congestive heart failure), NYHA class 3 Code(s): I50.33 - ACUTE ON CHRONIC DIASTOLIC (CONGESTIVE) HEART FAILURE Status : Acute (2) Hypertension Code(s): I10 - ESSENTIAL (PRIMARY) HYPERTENSION Status: Acute (3) DM2 (diabetes mellitus, type 2) Status: Chronic (4) Chronic kidney disease, stage 3 Code(s): N18.3 - CHRONIC KIDNEY DISEASE, STAGE 3 (MODERATE) Status: Chronic (5) Aortic stenosis, severe Code(s): I35.0 - NONRHEUMATIC AORTIC (VALVE) STENOSIS Status: Chronic (6) Mitral regurgitation Status: Chronic - Plan * Acute on chronic diastolic heart failure- slowly improving- will continue IV Lasix * Re-start her home medications * DM- blood glucose is stable * HTN- blood pressure is better today * Chronic kidney disease- stable * Await further recommendations from Cardiology
[2019-02-23] MEDS ORDERED: Fluticasone Propionate Nasal Spray 16 gm Bottle NASAL SCH (11:45)
[2019-02-23] MEDS: HumaLOG 300 UNITS/3 ML VIAL SC PRN (12:08)
[2019-02-23] MEDS: NIFEdipine XL 60 MG TAB PO SCH (16:24)
--- NOTE | 2019-02-23 19:23 | CON ---
DATE OF CONSULTATION: 02/23/2019 REASON FOR CONSULTATION: Recurrent congestive heart failure. 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 She has had multiple hospitalizations with congestive heart failure recently. She is admitted here in December, was treated with intravenous diuretics, but shortly after that, became more short of breath and had to come back for intravenous diuretics. Her said she was back in the emergency room last week for intravenous diuretics, but despite that she is short of breath at rest, finally had to come back again urgently with congestive heart failure received intravenous diuretics and is improving. PAST MEDICAL HISTORY: She has a history of coronary artery bypass grafting. Next bypass in 2006, she had internal mammary to the LAD, vein graft to the obtuse marginal one, vein graft to distal right coronary artery. In February 2018, she underwent cardiac catheterization, patent FAITH to the LAD, patent vein graft to the 1st marginal and the right coronary were all patent. Recent echocardiogram done interpreted by Dr. Griffin showed severe aortic stenosis, severe tricuspid regurgitation, severe mitral regurgitation. The note from Dr. Griffin indicates the peak gradient across the aortic valve was 122 mm. MEDICATIONS: At home included carvedilol 12.5 mg twice a day, clonidine 0.2 mg twice a day, atorvastatin, aspirin, fenofibrate, nifedipine, minoxidil, torsemide, and hydralazine. REVIEW OF SYSTEMS: CONSTITUTIONAL: No significant weight gain or loss. VISION: No changes. HEARING: No changes. PULMONARY: No cough or wheezing. Positive for severe shortness of breath. CARDIAC: No chest pain. GASTROINTESTINAL: No nausea, nausea, vomiting, or diarrhea. SKIN: No rashes. EXTREMITIES: Positive for swelling. FAMILY HISTORY: Noncontributory. SOCIAL HISTORY: No alcohol or tobacco. PHYSICAL EXAMINATION: GENERAL: This is a pleasant elderly 83-year-old [place] female. VITAL SIGNS: Blood pressure 152/70, pulse 60 and it is regular. LUNGS: Clear anteriorly and posteriorly. CARDIAC: There is a 3-4/6 holosystolic murmur at the apex. Some mitral regurgitation. There is a soft systolic murmur at right upper sternal border. ABDOMEN: Soft, nontender. EXTREMITIES: No clubbing or cyanosis. There is moderate edema. PERTINENT LABORATORY DATA: Creatinine is 1.44. BNP 876.8. ASSESSMENT: 1. Severe aortic stenosis. 2. Severe mitral regurgitation. 3. Recurrent congestive heart failure, probably multiple hospital admissions. 4. Coronary artery disease, well vascularized based on catheterization in February 2018. PLAN: The patient tells me they have been talking about sending her to [place] for transcutaneous valve implantation. I think that is appropriate. Dr. Griffin's note indicates an extremely high gradient across aortic valve. Certainly, the prognosis without intervention is poor. The patient is also having sinus pauses. We will reduce carvedilol dose. Dr. Horvath to see the patient tomorrow. Job ID: [id number]
[2019-02-23] MEDS: Atorvastatin Calcium 40 MG TAB PO SCH (22:11)
[2019-02-23] MEDS: Minoxidil 2.5 MG TAB PO SCH (22:12)
[2019-02-23] MEDS: Bumetanide 1 MG TAB PO SCH (22:13)
[2019-02-24] MEDS: Furosemide 40 MG/4 ML VIAL SLOW IVP SCH ×2 (06:31→14:59)
[2019-02-24] MEDS: Carvedilol 6.25 MG TAB PO SCH ×2 (08:38→16:57)
[2019-02-24] MEDS: Potassium Chloride 20 MEQ TAB PO SCH (08:38)
[2019-02-24] MEDS: hydrALAZINE 25 MG TAB PO SCH ×3 (08:39→21:02)
[2019-02-24] MEDS: Isosorbide Dinitrate 5 MG TAB PO SCH ×2 (08:39→21:01)
[2019-02-24] MEDS: Bumetanide 1 MG TAB PO SCH ×2 (08:40→21:03)
[2019-02-24] MEDS: Glimepiride 4 MG TAB PO SCH (08:40)
[2019-02-24] MEDS: Famotidine 20 MG TAB PO SCH (08:40)
[2019-02-24] MEDS: cloNIDine 0.2 MG TAB PO SCH ×2 (08:40→21:02)
[2019-02-24] MEDS: Fluticasone Propionate Nasal Spray 16 gm Bottle NASAL SCH (08:41)
[2019-02-24] MEDS: HumuLIN 70/30 (300 UNITS/3 ML VIAL) SC SCH (08:41)
[2019-02-24] MEDS: Fenofibrate Nanocrystallized 145 MG TAB PO SCH (08:48)
[2019-02-24 08:53] LABS: #Eosinphils 0.3 thou/uL (0.0-0.7); #Lymphocytes 1.2 thou/uL (1.20-3.40); #Monocytes 0.5 thou/uL (0.11-0.59); #Neutrophils 3.8 thou/uL (1.40-6.50); %Basophils 0.6 % (0.0-1.0); %Eosinophils 5.2 % (0.0-10.0); %Lymphocytes 20.8 % (21.0-51.0); %Monocytes 7.8 % (0.0-10.0); %Neutrophils 65.5 % (42.0-75.0); Hemoglobin 9.9 g/dL (12.0-16.0); Mean Corpuscular HGB CONC 33.4 g/dL (32.0-36.0); Mean Corpuscular Hemoglobin 30.6 pg (27.0-31.0); Mean Corpuscular Volume 91.8 fL (78.0-98.0); Mean Platelet Volume 8.1 fL (7.4-10.4); Platelet Count 220 thou/uL (130-400); RBC Distribution Width 13.7 % (11.5-14.5); Red Blood Cell (RBC) Count 3.22 mill/uL (4.20-5.40); White Blood Cell (WBC) Count 5.8 thou/uL (4.8-10.8)
[2019-02-24 09:19] LABS: Anion Gap 15 mmol/L (10-20); BUN (Urea Nitrogen) 31 mg/dL (9.8-20.1); Calc. Creatinine Clearance 28 mL/min (70-130); Calcium 9.3 mg/dL (7.8-10.44); Carbon Dioxide 26 mmol/L (23-31); Chloride 102 mmol/L (98-107); Estimated GFR-MDRD 31; Glucose 172 mg/dL (83-110); Potassium 3.7 mmol/L (3.5-5.1); Sodium 139 mmol/L (136-145)
--- NOTE | 2019-02-24 11:57 | PDOC.HOSPP ---
- Subjective Encounter Date: 02/24/19 Encounter Time: 11:55 Subjective: Mr. Hoff was seen today in follow-up of CHF exacerbation. She says she is breathing better. She is sitting up in a chair. She appears much less dyspneic. - Objective Vital Signs & Weight: Vital Signs (12 hours) Temp Pulse Resp BP BP Pulse Ox 02/24/19 11:11 97.3 F L 56 L 25 H 121/58 L 98 02/24/19 08:00 97.8 F 57 L 14 130/67 93 L 02/24/19 04:00 98.5 F 72 18 123/90 95 02/24/19 00:00 81 113/51 L Weight Weight 147 lb 6.4 oz I&O: 02/23/19 02/24/19 02/25/19 06:59 06:59 06:59 Intake Total 260 1360 Output Total 775 1950 Balance -515 -590 Result Diagrams: 02/24/19 08:45 02/24/19 08:45 Additional Labs: Accuchecks 02/24/19 02/24/19 02/23/19 10:31 06:07 21:07 POC Glucose 211 H 164 H 312 H 02/23/19 16:25 POC Glucose 93 Hospitalist ROS - Medication Medications: Active Medications Generic Name Dose Route Start Last Admin Trade Name Freq PRN Reason Stop Dose Admin Albuterol/Ipratropium 3 ml 02/23/19 08:28 02/23/19 23:06 Duoneb NEB 3 ml [id number] PRN Administration SOB &/or Wheezing Atorvastatin Calcium 40 mg 02/22/19 21:00 02/23/19 22:11 Lipitor PO 40 mg HS AISHA Administration Bumetanide 2 mg 02/23/19 21:00 02/24/19 08:40 Bumex PO 2 mg BID AISHA Administration Carvedilol 6.25 mg 02/24/19 08:00 02/24/19 08:38 Coreg PO 6.25 mg BID-WM AISHA Administration Clonidine 0.2 mg 02/22/19 21:00 02/24/19 08:40 Catapres PO 0.2 mg BID AISHA Administration Famotidine 20 mg 02/22/19 21:00 02/24/19 08:40 Pepcid PO 20 mg BID AISHA Administration Fenofibrate 145 mg 02/24/19 09:00 02/24/19 08:48 Tricor PO Not Given DAILY AISHA Fluticasone Propionate 0 gm 02/24/19 09:00 02/24/19 08:41 Flonase Nasal [place] NASAL 1 spr DAILY AISHA Administration Furosemide 40 mg 02/23/19 06:00 02/24/19 06:31 Lasix SLOW IVP 40 mg 0600,1400 AISHA Administration Glimepiride 4 mg 02/23/19 08:00 02/24/19 08:40 Amaryl PO 4 mg QAM-WM AISHA Administration Hydralazine HCl 100 mg 02/23/19 09:00 02/24/19 08:39 Apresoline PO 100 mg TID AISHA Administration Insulin Human Isoph/Insulin Regular 24 units 02/24/19 09:00 02/24/19 08:41 Humulin 70/30 SC 24 unit DAILY AISHA Administration Insulin Human Lispro 0 units 02/22/19 19:08 02/23/19 12:08 Humalog SC 8 unit .MODERATE SLIDING SC PRN Administration Moderate Correctional Scale Insulin Human Lispro 0 units 02/22/19 19:08 02/23/19 22:13 Humalog SC 4 unit .BEDTIME SLIDING SC PRN Administration Bedtime Correctional Scale Isosorbide Dinitrate 10 mg 02/23/19 09:00 02/24/19 08:39 Isordil PO 10 mg BID AISHA Administration Minoxidil 5 mg 02/22/19 21:00 02/23/19 22:12 Minoxidil PO 5 mg HS AISHA Administration Nifedipine 60 mg 02/23/19 17:00 02/23/19 16:24 Procardia Xl PO 60 mg 1700 AISHA Administration Potassium Chloride 20 meq 02/23/19 09:00 02/24/19 08:38 K-Dur PO 20 meq DAILY AISHA Administration - Exam Eye: PERRL, anicteric sclera Heart: RRR, no gallops, no rubs, normal peripheral pulses, murmur present, III/ IV Respiratory: CTAB, no wheezes, no rales, no ronchi, normal chest expansion Gastrointestinal: soft, non-tender, non-distended, normal bowel sounds, no palpable masses, no hepatomegaly, no splenomegaly Extremities: 1+ LE edema (1-2 + pitting edema in both lower extremities, no warmth, or erythema) Hosp A/P (1) Acute on chronic diastolic CHF (congestive heart failure), NYHA class 3 Code(s): I50.33 - ACUTE ON CHRONIC DIASTOLIC (CONGESTIVE) HEART FAILURE Status : Acute (2) Hypertension Code(s): I10 - ESSENTIAL (PRIMARY) HYPERTENSION Status: Acute (3) DM2 (diabetes mellitus, type 2) Status: Chronic (4) Chronic kidney disease, stage 3 Code(s): N18.3 - CHRONIC KIDNEY DISEASE, STAGE 3 (MODERATE) Status: Chronic (5) Aortic stenosis, severe Code(s): I35.0 - NONRHEUMATIC AORTIC (VALVE) STENOSIS Status: Chronic (6) Mitral regurgitation Status: Chronic - Plan * Acute on chronic diastolic heart failure- continued slow improvement * Aortic Stenosis- severe, and contributing to her heart failure exacerbations- await further recommendations from her Flaker Tender * DM- blood glucose is stable * HTN- blood pressure is a bit labile but stable * Chronic kidney disease- stable
[2019-02-24] MEDS: NIFEdipine XL 60 MG TAB PO SCH (16:57)
[2019-02-24] MEDS: Minoxidil 2.5 MG TAB PO SCH (21:02)
[2019-02-24] MEDS: Atorvastatin Calcium 40 MG TAB PO SCH (21:02)
[2019-02-25] MEDS: Furosemide 40 MG/4 ML VIAL SLOW IVP SCH ×2 (07:06→14:52)
[2019-02-25] MEDS: Carvedilol 6.25 MG TAB PO SCH ×2 (08:46→16:24)
[2019-02-25] MEDS: cloNIDine 0.2 MG TAB PO SCH ×2 (08:47→21:20)
[2019-02-25] MEDS: hydrALAZINE 25 MG TAB PO SCH ×3 (08:47→21:20)
[2019-02-25] MEDS: Glimepiride 4 MG TAB PO SCH (08:47)
[2019-02-25] MEDS: Potassium Chloride 20 MEQ TAB PO SCH (08:47)
[2019-02-25] MEDS: Isosorbide Dinitrate 5 MG TAB PO SCH ×2 (08:48→21:20)
[2019-02-25] MEDS: Famotidine 20 MG TAB PO SCH (08:48)
[2019-02-25] MEDS: Fluticasone Propionate Nasal Spray 16 gm Bottle NASAL SCH (08:49)
[2019-02-25] MEDS: HumuLIN 70/30 (300 UNITS/3 ML VIAL) SC SCH (08:49)
[2019-02-25] MEDS: Bumetanide 1 MG TAB PO SCH ×2 (08:49→21:19)
[2019-02-25] MEDS: Fenofibrate Nanocrystallized 145 MG TAB PO SCH (08:50)
[2019-02-25] MEDS: HumaLOG 300 UNITS/3 ML VIAL SC PRN (12:43)
--- NOTE | 2019-02-25 14:34 | PDOC.HOSPP ---
- Subjective Encounter Date: 02/25/19 Encounter Time: 14:31 Subjective: Ms. Hoff was seen today in follow-up of acute on chronic diastolic heart failure. She continues to feel better. She denies chest pain. - Objective Vital Signs & Weight: Vital Signs (12 hours) Temp Pulse Pulse Pulse Resp BP BP 02/25/19 13:15 57 L 81 114/61 127/95 H 02/25/19 11:05 97.5 F L 56 L 21 H 02/25/19 07:39 97.4 F L 67 17 02/25/19 03:39 97.9 F 77 23 H BP Pulse Ox Pulse Ox Pulse Ox 02/25/19 13:15 95 94 L 02/25/19 11:05 113/55 L 95 02/25/19 07:39 152/67 H 95 02/25/19 03:39 149/65 H 97 Weight Weight 145 lb 9 oz I&O: 02/24/19 02/25/19 02/26/19 06:59 06:59 06:59 Intake Total 1360 1060 Output Total 1950 1700 Balance -590 -640 Result Diagrams: 02/24/19 08:45 02/24/19 08:45 Additional Labs: Accuchecks 02/25/19 02/25/19 02/24/19 10:40 06:19 21:26 POC Glucose 182 H 97 198 H 02/24/19 16:58 POC Glucose 207 H Hospitalist ROS - Medication Medications: Active Medications Generic Name Dose Route Start Last Admin Trade Name Freq PRN Reason Stop Dose Admin Albuterol/Ipratropium 3 ml 02/23/19 08:28 02/24/19 19:43 Duoneb NEB 3 ml [id number] PRN Administration SOB &/or Wheezing Atorvastatin Calcium 40 mg 02/22/19 21:00 02/24/19 21:02 Lipitor PO 40 mg HS AISHA Administration Bumetanide 2 mg 02/23/19 21:00 02/25/19 08:49 Bumex PO 2 mg BID AISHA Administration Carvedilol 6.25 mg 02/24/19 08:00 02/25/19 08:46 Coreg PO 6.25 mg BID-WM AISHA Administration Clonidine 0.2 mg 02/22/19 21:00 02/25/19 08:47 Catapres PO 0.2 mg BID AISHA Administration Famotidine 20 mg 02/25/19 09:00 02/25/19 08:48 Pepcid PO 20 mg DAILY AISHA Administration Fenofibrate 145 mg 02/24/19 09:00 02/25/19 08:50 Tricor PO Not Given DAILY AISHA Fluticasone Propionate 0 gm 02/24/19 09:00 02/25/19 08:49 Flonase Nasal [place] NASAL 1 spr DAILY AISHA Administration Furosemide 40 mg 02/23/19 06:00 02/25/19 07:06 Lasix SLOW IVP 40 mg 0600,1400 AISHA Administration Glimepiride 4 mg 02/23/19 08:00 02/25/19 08:47 Amaryl PO 4 mg QAM-WM AISHA Administration Hydralazine HCl 100 mg 02/23/19 09:00 02/25/19 08:47 Apresoline PO 100 mg TID AISHA Administration Insulin Human Isoph/Insulin Regular 24 units 02/24/19 09:00 02/25/19 08:49 Humulin 70/30 SC 24 unit DAILY AISHA Administration Insulin Human Lispro 0 units 02/22/19 19:08 02/25/19 12:43 Humalog SC 2 unit .MODERATE SLIDING SC PRN Administration Moderate Correctional Scale Insulin Human Lispro 0 units 02/22/19 19:08 02/23/19 22:13 Humalog SC 4 unit .BEDTIME SLIDING SC PRN Administration Bedtime Correctional Scale Isosorbide Dinitrate 10 mg 02/23/19 09:00 02/25/19 08:48 Isordil PO 10 mg BID AISHA Administration Minoxidil 5 mg 02/22/19 21:00 02/24/19 21:02 Minoxidil PO 5 mg HS AISHA Administration Nifedipine 60 mg 02/23/19 17:00 02/24/19 16:57 Procardia Xl PO 60 mg 1700 AISHA Administration Potassium Chloride 20 meq 02/23/19 09:00 02/25/19 08:47 K-Dur PO 20 meq DAILY AISHA Administration - Exam Eye: PERRL Heart: RRR, no rubs, normal peripheral pulses, III/IV Respiratory: CTAB (with rales at the bases), no wheezes, no ronchi Gastrointestinal: soft, non-tender, non-distended, normal bowel sounds, no palpable masses, no hepatomegaly Extremities: no cyanosis Hosp A/P (1) Acute on chronic diastolic CHF (congestive heart failure), NYHA class 3 Code(s): I50.33 - ACUTE ON CHRONIC DIASTOLIC (CONGESTIVE) HEART FAILURE Status : Acute (2) Hypertension Code(s): I10 - ESSENTIAL (PRIMARY) HYPERTENSION Status: Acute (3) DM2 (diabetes mellitus, type 2) Status: Chronic (4) Chronic kidney disease, stage 3 Code(s): N18.3 - CHRONIC KIDNEY DISEASE, STAGE 3 (MODERATE) Status: Chronic (5) Aortic stenosis, severe Code(s): I35.0 - NONRHEUMATIC AORTIC (VALVE) STENOSIS Status: Chronic (6) Mitral regurgitation Status: Chronic - Plan * Acute on chronic diastolic heart failure- compensated * Aortic Stenosis- severe may need TAVR * DM- blood glucose is stable * HTN- blood pressure is stable * Chronic kidney disease- stable
[2019-02-25] MEDS: NIFEdipine XL 60 MG TAB PO SCH (16:23)
[2019-02-25] MEDS ORDERED: Spironolactone 25 MG TAB PO SCH (17:30)
--- NOTE | 2019-02-25 17:34 | PDOC.CPN ---
- Subjective Date: 02/25/19 Time: 17:34 Interval history: The pt seen and examined. No overnight events. No cardiac complaints except complaining of worsening of SOB with mild exertion. - Objective Allergies/Adverse Reactions: Allergies Allergy/AdvReac Type Severity Reaction Status Date / Time No Known Allergies Allergy Verified 08/01/12 18:18 Visit Medications: Current Medications Acetaminophen (Tylenol) 650 mg PO Q4H PRN PRN Reason: Headache/Fever/Mild Pain (1-3) Albuterol/Ipratropium (Duoneb) 3 ml NEB [id number] PRN PRN Reason: SOB &/or Wheezing Last Admin: 02/24/19 19:43 Dose: 3 ml Atorvastatin Calcium (Lipitor) 40 mg PO HS [facility] Last Admin: 02/24/19 21:02 Dose: 40 mg Bumetanide (Bumex) 2 mg PO BID [facility] Last Admin: 02/25/19 08:49 Dose: 2 mg Carvedilol (Coreg) 6.25 mg PO BID-[facility] Last Admin: 02/25/19 16:24 Dose: 6.25 mg Clonidine (Catapres) 0.2 mg PO BID [facility] Last Admin: 02/25/19 08:47 Dose: 0.2 mg Dextrose/Water (Dextrose 50%) 25 gm SLOW IVP PRN PRN PRN Reason: Hypoglycemia Famotidine (Pepcid) 20 mg PO DAILY [facility] Last Admin: 02/25/19 08:48 Dose: 20 mg Fenofibrate (Tricor) 145 mg PO DAILY [facility] Last Admin: 02/25/19 08:50 Dose: Not Given Fluticasone Propionate (Flonase Nasal [place]) 0 gm NASAL DAILY [facility] Last Admin: 02/25/19 08:49 Dose: 1 spr Furosemide (Lasix) 40 mg SLOW IVP 0600,1400 [facility] Last Admin: 02/25/19 14:52 Dose: 40 mg Glimepiride (Amaryl) 4 mg PO QAM-[facility] Last Admin: 02/25/19 08:47 Dose: 4 mg Glucagon (Glucagon) 1 mg IM PRN PRN PRN Reason: Hypoglycemia Hydralazine HCl (Apresoline) 100 mg PO TID [facility] Last Admin: 02/25/19 14:51 Dose: 100 mg Dextrose/Water (D5w) 1,000 mls @ 0 mls/hr IV .Q0M PRN PRN Reason: Hypoglycemia Insulin Human Isoph/Insulin Regular (Humulin 70/30) 24 units SC DAILY [facility] Last Admin: 02/25/19 08:49 Dose: 24 unit Insulin Human Lispro (Humalog) 0 units SC .MODERATE SLIDING SC PRN PRN Reason: Moderate Correctional Scale Last Admin: 02/25/19 12:43 Dose: 2 unit Insulin Human Lispro (Humalog) 0 units SC .BEDTIME SLIDING SC PRN PRN Reason: Bedtime Correctional Scale Last Admin: 02/23/19 22:13 Dose: 4 unit Isosorbide Dinitrate (Isordil) 10 mg PO BID [facility] Last Admin: 02/25/19 08:48 Dose: 10 mg Minoxidil (Minoxidil) 5 mg PO HS [facility] Last Admin: 02/24/19 21:02 Dose: 5 mg Nifedipine (Procardia Xl) 60 mg PO 1700 [facility] Last Admin: 02/25/19 16:23 Dose: 60 mg Potassium Chloride (K-Dur) 20 meq PO DAILY [facility] Last Admin: 02/25/19 08:47 Dose: 20 meq Spironolactone (Aldactone) 25 mg PO ONE [facility] Spironolactone (Aldactone) 25 mg PO QAM-[facility] Vital Signs & Weight: Vital Signs Temp Pulse Pulse Pulse Resp BP BP 02/25/19 15:00 97.5 F L 68 24 H 02/25/19 13:15 57 L 81 114/61 127/95 H 02/25/19 11:05 97.5 F L 56 L 21 H 02/25/19 07:39 97.4 F L 67 17 BP BP Pulse Ox Pulse Ox Pulse Ox 02/25/19 15:00 162/74 H 96 02/25/19 13:15 95 94 L 02/25/19 11:05 113/55 L 95 02/25/19 07:39 152/67 H 95 Weight 145 lb 9 oz - Physical Exam General: alert & oriented x3 HEENT: mucus membranes moist Neck: supple neck Cardiac: regular rate and rhythm, S1/S2 Lungs: other (very diminished at bases; O2 sat has been 93-95%) Neuro: cranial nerve 2-12 intact Extremities: other: (3+ pitting BLE edema) - Labs Result Diagrams: 02/24/19 08:45 02/24/19 08:45 Troponin/CKMB CK-MB (CK-2) 3.1 ng/mL (0-6.6) 02/22/19 06:48 Troponin I 0.037 ng/mL (< 0.028) H 02/22/19 12:39 - Telemetry Sinus rhythms and dysrhythmias: sinus rhythm - Assessment/Plan Assessment/Plan: 1. Aute on Chronic diastolic HF - [email or web address]; on Coreg 6.25mg BID and Isosorbide; not on SHANDRA/ARB due to hx of CKD; 2. Severe MR - will refer to [place] for possible MV clip 3. HTN - stable with current med 4. CAD with hx of CABG x 3 in 2006 - 5. - Echo in 12/2018 showed likely mild, number showing severe likely from Juxtaposition of MR wave, does not appear severe. 6. CKD - stable 7. DM MAR reviewed * Echo in 12/2018 with EF 55-60%, mild AR, severe , MR, and TR Pt. seen and eval. by me. She is still SOB with minimal exertion. Diuresing slowly. Chest : bilateral wheeze. CV: RRR, systolic murmur over the aortic area and at the apex. She may need a cardiac cath to truly evaluate the AV and the coronaries. If she needs a TAVR hen she may need a pacemaker prior to the procedure.
[2019-02-25] MEDS: Atorvastatin Calcium 40 MG TAB PO SCH (21:19)
[2019-02-25] MEDS: Minoxidil 2.5 MG TAB PO SCH (21:20)
[2019-02-26] MEDS: Furosemide 40 MG/4 ML VIAL SLOW IVP SCH ×2 (05:12→13:11)
[2019-02-26 09:01] LABS: Anion Gap 15 mmol/L (10-20); BUN (Urea Nitrogen) 34 mg/dL (9.8-20.1); Calc. Creatinine Clearance 27 mL/min (70-130); Calcium 9.6 mg/dL (7.8-10.44); Carbon Dioxide 29 mmol/L (23-31); Chloride 102 mmol/L (98-107); Estimated GFR-MDRD 30; Glucose 127 mg/dL (83-110); Potassium 3.5 mmol/L (3.5-5.1); Sodium 142 mmol/L (136-145)
[2019-02-26] MEDS: Glimepiride 4 MG TAB PO SCH (09:41)
[2019-02-26] MEDS: Potassium Chloride 20 MEQ TAB PO SCH (09:41)
[2019-02-26] MEDS: Famotidine 20 MG TAB PO SCH (09:41)
[2019-02-26] MEDS: Bumetanide 1 MG TAB PO SCH ×2 (09:41→21:00)
[2019-02-26] MEDS: Spironolactone 25 MG TAB PO SCH (09:42)
[2019-02-26] MEDS: Carvedilol 6.25 MG TAB PO SCH ×2 (09:42→17:30)
[2019-02-26] MEDS: Fenofibrate Nanocrystallized 145 MG TAB PO SCH (09:42)
[2019-02-26] MEDS: cloNIDine 0.2 MG TAB PO SCH ×2 (09:42→21:27)
[2019-02-26] MEDS: Fluticasone Propionate Nasal Spray 16 gm Bottle NASAL SCH (09:42)
[2019-02-26] MEDS: HumuLIN 70/30 (300 UNITS/3 ML VIAL) SC SCH (09:45)
--- NOTE | 2019-02-26 12:19 | PDOC.HOSPP ---
- Subjective Encounter Date: 02/26/19 Encounter Time: 12:17 Subjective: Ms. Hoff was seen today in follow-up of CHF exacerbation. She says she feels fine. No new complaints. - Objective Vital Signs & Weight: Vital Signs (12 hours) Temp Pulse Resp BP BP Pulse Ox 02/26/19 09:42 144/63 H 02/26/19 08:00 97.5 F L 72 18 144/63 H 93 L 02/26/19 04:00 97.9 F 71 20 137/71 94 L Weight Weight 145 lb 9.6 oz I&O: 02/25/19 02/26/19 02/27/19 06:59 06:59 06:59 Intake Total 1060 1100 Output Total 1700 1900 Balance -640 -800 Result Diagrams: 02/24/19 08:45 02/26/19 08:27 Additional Labs: Accuchecks 02/26/19 02/26/19 02/25/19 10:34 05:22 20:37 POC Glucose 264 H 123 H 216 H 02/25/19 16:59 POC Glucose 92 Hospitalist ROS - Medication Medications: Active Medications Generic Name Dose Route Start Last Admin Trade Name Freq PRN Reason Stop Dose Admin Albuterol/Ipratropium 3 ml 02/23/19 08:28 02/25/19 19:22 Duoneb NEB 3 ml [id number] PRN Administration SOB &/or Wheezing Atorvastatin Calcium 40 mg 02/22/19 21:00 02/25/19 21:19 Lipitor PO 40 mg HS AISHA Administration Bumetanide 2 mg 02/23/19 21:00 02/26/19 09:41 Bumex PO 2 mg BID [facility] Administration Carvedilol 6.25 mg 02/24/19 08:00 02/26/19 09:42 Coreg PO 6.25 mg BID-WM AISHA Administration Clonidine 0.2 mg 02/22/19 21:00 02/26/19 09:42 Catapres PO 0.2 mg BID [facility] Administration Famotidine 20 mg 02/25/19 09:00 02/26/19 09:41 Pepcid PO 20 mg DAILY [facility] Administration Fenofibrate 145 mg 02/24/19 09:00 02/26/19 09:42 Tricor PO 145 mg DAILY [facility] Administration Fluticasone Propionate 0 gm 02/24/19 09:00 02/26/19 09:42 Flonase Nasal [place] NASAL 1 spr DAILY [facility] Administration Furosemide 40 mg 02/23/19 06:00 02/26/19 05:12 Lasix SLOW IVP 40 mg 0600,1400 [facility] Administration Glimepiride 4 mg 02/23/19 08:00 02/26/19 09:41 Amaryl PO 4 mg QAM-WM [facility] Administration Hydralazine HCl 100 mg 02/23/19 09:00 02/25/19 21:20 Apresoline PO 100 mg TID [facility] Administration Insulin Human Isoph/Insulin Regular 24 units 02/24/19 09:00 02/26/19 09:45 Humulin 70/30 SC 24 unit DAILY [facility] Administration Insulin Human Lispro 0 units 02/22/19 19:08 02/25/19 12:43 Humalog SC 2 unit .MODERATE SLIDING SC PRN Administration Moderate Correctional Scale Insulin Human Lispro 0 units 02/22/19 19:08 02/23/19 22:13 Humalog SC 4 unit .BEDTIME SLIDING SC PRN Administration Bedtime Correctional Scale Isosorbide Dinitrate 10 mg 02/23/19 09:00 02/25/19 21:20 Isordil PO 10 mg BID [facility] Administration Minoxidil 5 mg 02/22/19 21:00 02/25/19 21:20 Minoxidil PO 5 mg HS [facility] Administration Nifedipine 60 mg 02/23/19 17:00 02/25/19 16:23 Procardia Xl PO 60 mg 1700 [facility] Administration Potassium Chloride 20 meq 02/23/19 09:00 02/26/19 09:41 K-Dur PO 20 meq DAILY [facility] Administration Spironolactone 25 mg 02/26/19 08:00 02/26/19 09:42 Aldactone PO 25 mg QAM-WM [facility] Administration - Exam Eye: PERRL Heart: RRR, no murmur, no gallops, no rubs, normal peripheral pulses Respiratory: CTAB (+ mild scattered wheeze) Gastrointestinal: soft, non-tender, non-distended, normal bowel sounds, no palpable masses, no hepatomegaly, no splenomegaly Extremities: no cyanosis, no clubbing, 1+ LE edema Hosp A/P (1) Acute on chronic diastolic CHF (congestive heart failure), NYHA class 3 Code(s): I50.33 - ACUTE ON CHRONIC DIASTOLIC (CONGESTIVE) HEART FAILURE Status : Acute (2) Hypertension Code(s): I10 - ESSENTIAL (PRIMARY) HYPERTENSION Status: Acute (3) DM2 (diabetes mellitus, type 2) Status: Chronic (4) Chronic kidney disease, stage 3 Code(s): N18.3 - CHRONIC KIDNEY DISEASE, STAGE 3 (MODERATE) Status: Chronic (5) Aortic stenosis, severe Code(s): I35.0 - NONRHEUMATIC AORTIC (VALVE) STENOSIS Status: Chronic (6) Mitral regurgitation Status: Chronic - Plan * Acute on chronic diastolic heart failure- continue slow diureses * Aortic Stenosis- severe may need TAVR * DM- blood glucose is stable * HTN- blood pressure is stable * Chronic kidney disease- stable
[2019-02-26] MEDS: Isosorbide Dinitrate 5 MG TAB PO SCH ×2 (13:11→21:00)
[2019-02-26] MEDS: hydrALAZINE 25 MG TAB PO SCH ×3 (13:11→21:25)
[2019-02-26] MEDS: HumaLOG 300 UNITS/3 ML VIAL SC PRN (13:12)
--- NOTE | 2019-02-26 15:30 | PDOC.CPN ---
- Subjective Date: 02/26/19 Time: 15:33 Interval history: The pt seen and examined. No overnight events. She is still SOB with minimal exertion. - Objective Allergies/Adverse Reactions: Allergies Allergy/AdvReac Type Severity Reaction Status Date / Time No Known Allergies Allergy Verified 08/01/12 18:18 Visit Medications: Current Medications Acetaminophen (Tylenol) 650 mg PO Q4H PRN PRN Reason: Headache/Fever/Mild Pain (1-3) Albuterol/Ipratropium (Duoneb) 3 ml NEB [id number] PRN PRN Reason: SOB &/or Wheezing Last Admin: 02/25/19 19:22 Dose: 3 ml Atorvastatin Calcium (Lipitor) 40 mg PO HS [facility] Last Admin: 02/25/19 21:19 Dose: 40 mg Bumetanide (Bumex) 2 mg PO BID [facility] Last Admin: 02/26/19 09:41 Dose: 2 mg Carvedilol (Coreg) 6.25 mg PO BID-[facility] Last Admin: 02/26/19 09:42 Dose: 6.25 mg Clonidine (Catapres) 0.2 mg PO BID [facility] Last Admin: 02/26/19 09:42 Dose: 0.2 mg Dextrose/Water (Dextrose 50%) 25 gm SLOW IVP PRN PRN PRN Reason: Hypoglycemia Famotidine (Pepcid) 20 mg PO DAILY [facility] Last Admin: 02/26/19 09:41 Dose: 20 mg Fenofibrate (Tricor) 145 mg PO DAILY [facility] Last Admin: 02/26/19 09:42 Dose: 145 mg Fluticasone Propionate (Flonase Nasal [place]) 0 gm NASAL DAILY [facility] Last Admin: 02/26/19 09:42 Dose: 1 spr Furosemide (Lasix) 40 mg SLOW IVP 0600,1400 [facility] Last Admin: 02/26/19 13:11 Dose: 40 mg Glimepiride (Amaryl) 4 mg PO QAM-[facility] Last Admin: 02/26/19 09:41 Dose: 4 mg Glucagon (Glucagon) 1 mg IM PRN PRN PRN Reason: Hypoglycemia Hydralazine HCl (Apresoline) 100 mg PO TID [facility] Last Admin: 02/26/19 13:50 Dose: Not Given Dextrose/Water (D5w) 1,000 mls @ 0 mls/hr IV .Q0M PRN PRN Reason: Hypoglycemia Insulin Human Isoph/Insulin Regular (Humulin 70/30) 24 units SC DAILY [facility] Last Admin: 02/26/19 09:45 Dose: 24 unit Insulin Human Lispro (Humalog) 0 units SC .MODERATE SLIDING SC PRN PRN Reason: Moderate Correctional Scale Last Admin: 02/26/19 13:12 Dose: 6 unit Insulin Human Lispro (Humalog) 0 units SC .BEDTIME SLIDING SC PRN PRN Reason: Bedtime Correctional Scale Last Admin: 02/23/19 22:13 Dose: 4 unit Isosorbide Dinitrate (Isordil) 10 mg PO BID [facility] Last Admin: 02/26/19 13:11 Dose: 10 mg Minoxidil (Minoxidil) 5 mg PO HS [facility] Last Admin: 02/25/19 21:20 Dose: 5 mg Nifedipine (Procardia Xl) 60 mg PO 1700 [facility] Last Admin: 02/25/19 16:23 Dose: 60 mg Potassium Chloride (K-Dur) 20 meq PO DAILY [facility] Last Admin: 02/26/19 09:41 Dose: 20 meq Spironolactone (Aldactone) 25 mg PO QAM-[facility] Last Admin: 02/26/19 09:42 Dose: 25 mg Vital Signs & Weight: Vital Signs Temp Pulse Pulse Pulse Resp BP BP 02/26/19 13:11 165/68 H 02/26/19 12:58 69 55 L 159/67 H 02/26/19 12:00 98.7 F 61 20 02/26/19 09:42 144/63 H 02/26/19 08:00 97.5 F L 72 18 02/26/19 04:00 97.9 F 71 20 BP BP BP Pulse Ox Pulse Ox Pulse Ox 02/26/19 13:11 02/26/19 12:58 123/68 96 95 02/26/19 12:00 165/68 H 95 02/26/19 09:42 02/26/19 08:00 144/63 H 93 L 02/26/19 04:00 137/71 94 L Weight 145 lb 9.6 oz - Physical Exam General: alert & oriented x3 HEENT: mucus membranes moist Neck: supple neck Cardiac: regular rate and rhythm, S1/S2 Lungs: decreased breath sounds Neuro: cranial nerve 2-12 intact Extremities: other: (2+ pitting BLE edema) - Labs Result Diagrams: 02/24/19 08:45 02/26/19 08:27 Troponin/CKMB CK-MB (CK-2) 3.1 ng/mL (0-6.6) 02/22/19 06:48 Troponin I 0.037 ng/mL (< 0.028) H 02/22/19 12:39 - Telemetry Sinus rhythms and dysrhythmias: other (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 Aute on Chronic diastolic HF - will start Aldactone from [place]; on Coreg 6.25mg BID and Isosorbide; not on SHANDRA/ARB due to hx of CKD; 2. Severe MR - will refer to [place] for possible MV clip 3. HTN - stable with current med 4. CAD with hx of CABG x 3 in 2006 - 5. - may need a cardiac cath to evaluate the AV and the coronaries. If she needs a TAVR, she may need a pacemaker prior to the procedure. 6. CKD - stable 7. 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 seen and eval. by me. I agree with the A/P by the [employer]PERATOR. Thao elenaing. Will discuss with dr. lao in [place] this week about possible TAVR eval. She will likely need a pacer prior to the procedure. elsa
[2019-02-26] MEDS: NIFEdipine XL 60 MG TAB PO SCH (17:30)
[2019-02-26] MEDS: Minoxidil 2.5 MG TAB PO SCH (21:00)
[2019-02-26] MEDS: Atorvastatin Calcium 40 MG TAB PO SCH (21:30)
[2019-02-27] MEDS: Furosemide 40 MG/4 ML VIAL SLOW IVP SCH ×2 (06:01→14:44)
[2019-02-27] MEDS: Carvedilol 6.25 MG TAB PO SCH ×2 (08:52→17:54)
[2019-02-27] MEDS: Potassium Chloride 20 MEQ TAB PO SCH (08:53)
[2019-02-27] MEDS: Bumetanide 1 MG TAB PO SCH ×2 (08:53→20:27)
[2019-02-27] MEDS: Isosorbide Dinitrate 5 MG TAB PO SCH ×2 (08:53→20:27)
[2019-02-27] MEDS: cloNIDine 0.2 MG TAB PO SCH ×2 (08:53→20:28)
[2019-02-27] MEDS: Spironolactone 25 MG TAB PO SCH (08:54)
[2019-02-27] MEDS: Fenofibrate Nanocrystallized 145 MG TAB PO SCH (08:54)
[2019-02-27] MEDS: Fluticasone Propionate Nasal Spray 16 gm Bottle NASAL SCH (08:54)
[2019-02-27] MEDS: Glimepiride 4 MG TAB PO SCH (08:54)
[2019-02-27] MEDS: Famotidine 20 MG TAB PO SCH (10:06)
[2019-02-27] MEDS: HumuLIN 70/30 (300 UNITS/3 ML VIAL) SC SCH (10:07)
[2019-02-27] MEDS: hydrALAZINE 25 MG TAB PO SCH ×3 (10:07→20:27)
--- NOTE | 2019-02-27 10:30 | PDOC.HOSPP ---
- Subjective Encounter Date: 02/27/19 Encounter Time: 10:30 Subjective: Ms. Hoff was sen today in follow-up of CHF exacerbation and critical . She says she feels much better. She says she doesn't hurt all over now, like she does when she is at home. - Objective Vital Signs & Weight: Vital Signs (12 hours) Temp Pulse Resp BP BP Pulse Ox 02/27/19 10:07 134/59 L 02/27/19 08:53 134/59 L 02/27/19 08:52 134/59 L 02/27/19 07:54 97.9 F 75 20 134/59 L 97 02/27/19 04:00 97.9 F 80 16 139/62 94 L 02/26/19 22:38 67 24 H 96 Weight Weight 148 lb 11.2 oz I&O: 02/26/19 02/27/19 02/28/19 06:59 06:59 06:59 Intake Total 1100 50 Output Total 1900 1425 Balance -800 -1375 Result Diagrams: 02/24/19 08:45 02/26/19 08:27 Additional Labs: Accuchecks 02/27/19 02/26/19 02/26/19 05:15 21:05 18:56 POC Glucose 137 H 214 H 122 H 02/26/19 02/26/19 17:10 10:34 POC Glucose 52 L* 264 H Hospitalist ROS - Medication Medications: Active Medications Generic Name Dose Route Start Last Admin Trade Name Freq PRN Reason Stop Dose Admin Albuterol/Ipratropium 3 ml 02/23/19 08:28 02/26/19 22:38 Duoneb NEB 3 ml [id number] PRN Administration SOB &/or Wheezing Atorvastatin Calcium 40 mg 02/22/19 21:00 02/26/19 21:30 Lipitor PO 40 mg HS AISHA Administration Bumetanide 2 mg 02/23/19 21:00 02/27/19 08:53 Bumex PO 2 mg BID [facility]HA Administration Carvedilol 6.25 mg 02/24/19 08:00 02/27/19 08:52 Coreg PO 6.25 mg BID-WM A[facility]HA Administration Clonidine 0.2 mg 02/22/19 21:00 02/27/19 08:53 Catapres PO 0.2 mg BID [facility] Administration Famotidine 20 mg 02/25/19 09:00 02/27/19 10:06 Pepcid PO 20 mg DAILY [facility] Administration Fenofibrate 145 mg 02/24/19 09:00 02/27/19 08:54 Tricor PO 145 mg DAILY [facility] Administration Fluticasone Propionate 0 gm 02/24/19 09:00 02/27/19 08:54 Flonase Nasal [place] NASAL 1 spr DAILY [facility] Administration Furosemide 40 mg 02/23/19 06:00 02/27/19 06:01 Lasix SLOW IVP 40 mg 0600,1400 [facility] Administration Glimepiride 4 mg 02/23/19 08:00 02/27/19 08:54 Amaryl PO 4 mg QAM-WM [facility] Administration Hydralazine HCl 100 mg 02/23/19 09:00 02/27/19 10:07 Apresoline PO 100 mg TID [facility] Administration Insulin Human Isoph/Insulin Regular 24 units 02/24/19 09:00 02/27/19 10:07 Humulin 70/30 SC 24 unit DAILY [facility] Administration Insulin Human Lispro 0 units 02/22/19 19:08 02/26/19 13:12 Humalog SC 6 unit .MODERATE SLIDING SC PRN Administration Moderate Correctional Scale Insulin Human Lispro 0 units 02/22/19 19:08 02/23/19 22:13 Humalog SC 4 unit .BEDTIME SLIDING SC PRN Administration Bedtime Correctional Scale Isosorbide Dinitrate 10 mg 02/23/19 09:00 02/27/19 08:53 Isordil PO 10 mg BID [facility] Administration Minoxidil 5 mg 02/22/19 21:00 02/26/19 21:00 Minoxidil PO 5 mg HS [facility] Administration Nifedipine 60 mg 02/23/19 17:00 02/26/19 17:30 Procardia Xl PO 60 mg 1700 [facility] Administration Potassium Chloride 20 meq 02/23/19 09:00 02/27/19 08:53 K-Dur PO 20 meq DAILY [facility] Administration Spironolactone 25 mg 02/26/19 08:00 02/27/19 08:54 Aldactone PO 25 mg QAM-WM AISHA Administration - Exam Eye: PERRL Heart: RRR, murmur present, II/IV Respiratory: CTAB, no wheezes, no rales, no ronchi, normal chest expansion, no tachypnea, normal percussion Gastrointestinal: soft, non-tender, non-distended, normal bowel sounds, no palpable masses, no hepatomegaly, no splenomegaly Extremities: no cyanosis Hosp A/P (1) Acute on chronic diastolic CHF (congestive heart failure), NYHA class 3 Code(s): I50.33 - ACUTE ON CHRONIC DIASTOLIC (CONGESTIVE) HEART FAILURE Status : Acute (2) Hypertension Code(s): I10 - ESSENTIAL (PRIMARY) HYPERTENSION Status: Acute (3) DM2 (diabetes mellitus, type 2) Status: Chronic (4) Chronic kidney disease, stage 3 Code(s): N18.3 - CHRONIC KIDNEY DISEASE, STAGE 3 (MODERATE) Status: Chronic (5) Aortic stenosis, severe Code(s): I35.0 - NONRHEUMATIC AORTIC (VALVE) STENOSIS Status: Chronic (6) Mitral regurgitation Status: Chronic - Plan * Acute on chronic diastolic heart failure- she continues to improve with diureses * Aortic Stenosis- She is being evaluated for transfer to [place] for TAVR * DM- she had one low reading on her blood glucose- will monitor * HTN- blood pressure is stable * Chronic kidney disease- stable
[2019-02-27] MEDS: NIFEdipine XL 60 MG TAB PO SCH (17:54)
--- NOTE | 2019-02-27 18:29 | PDOC.CPN ---
- Subjective Date: 02/27/19 Time: 17:00 Interval history: The pt seen and examined. No overnight events. No cardiac complaints. - Objective Allergies/Adverse Reactions: Allergies Allergy/AdvReac Type Severity Reaction Status Date / Time No Known Allergies Allergy Verified 08/01/12 18:18 Visit Medications: Current Medications Acetaminophen (Tylenol) 650 mg PO Q4H PRN PRN Reason: Headache/Fever/Mild Pain (1-3) Albuterol/Ipratropium (Duoneb) 3 ml NEB [id number] PRN PRN Reason: SOB &/or Wheezing Last Admin: 02/26/19 22:38 Dose: 3 ml Atorvastatin Calcium (Lipitor) 40 mg PO HS [facility] Last Admin: 02/26/19 21:30 Dose: 40 mg Bumetanide (Bumex) 2 mg PO BID [facility] Last Admin: 02/27/19 08:53 Dose: 2 mg Carvedilol (Coreg) 6.25 mg PO BID[facility] Last Admin: 02/27/19 17:54 Dose: 6.25 mg Clonidine (Catapres) 0.2 mg PO BID [facility] Last Admin: 02/27/19 08:53 Dose: 0.2 mg Dextrose/Water (Dextrose 50%) 25 gm SLOW IVP PRN PRN PRN Reason: Hypoglycemia Famotidine (Pepcid) 20 mg PO DAILY [facility] Last Admin: 02/27/19 10:06 Dose: 20 mg Fenofibrate (Tricor) 145 mg PO DAILY [facility] Last Admin: 02/27/19 08:54 Dose: 145 mg Fluticasone Propionate (Flonase Nasal [place]) 0 gm NASAL DAILY [facility] Last Admin: 02/27/19 08:54 Dose: 1 spr Furosemide (Lasix) 40 mg SLOW IVP 0600,1400 [facility] Last Admin: 02/27/19 14:44 Dose: 40 mg Glimepiride (Amaryl) 4 mg PO QAM-[facility] Last Admin: 02/27/19 08:54 Dose: 4 mg Glucagon (Glucagon) 1 mg IM PRN PRN PRN Reason: Hypoglycemia Hydralazine HCl (Apresoline) 100 mg PO TID [facility] Last Admin: 02/27/19 14:43 Dose: 100 mg Dextrose/Water (D5w) 1,000 mls @ 0 mls/hr IV .Q0M PRN PRN Reason: Hypoglycemia Insulin Human Isoph/Insulin Regular (Humulin 70/30) 24 units SC DAILY [facility] Last Admin: 02/27/19 10:07 Dose: 24 unit Insulin Human Lispro (Humalog) 0 units SC .MODERATE SLIDING SC PRN PRN Reason: Moderate Correctional Scale Last Admin: 02/26/19 13:12 Dose: 6 unit Insulin Human Lispro (Humalog) 0 units SC .BEDTIME SLIDING SC PRN PRN Reason: Bedtime Correctional Scale Last Admin: 02/23/19 22:13 Dose: 4 unit Isosorbide Dinitrate (Isordil) 10 mg PO BID [facility] Last Admin: 02/27/19 08:53 Dose: 10 mg Minoxidil (Minoxidil) 5 mg PO HS [facility] Last Admin: 02/26/19 21:00 Dose: 5 mg Nifedipine (Procardia Xl) 60 mg PO 1700 [facility] Last Admin: 02/27/19 17:54 Dose: 60 mg Potassium Chloride (K-Dur) 20 meq PO DAILY [facility] Last Admin: 02/27/19 08:53 Dose: 20 meq Spironolactone (Aldactone) 25 mg PO QAM-[facility] Last Admin: 02/27/19 08:54 Dose: 25 mg Vital Signs & Weight: Vital Signs Temp Pulse Resp BP BP Pulse Ox 02/27/19 16:00 97.2 F L 57 L 16 146/75 H 95 02/27/19 11:57 97.7 F 64 14 120/58 L 96 02/27/19 10:07 134/59 L 02/27/19 08:53 134/59 L 02/27/19 08:52 134/59 L 02/27/19 07:54 97.9 F 75 20 134/59 L 97 Weight 148 lb 11.2 oz - Physical Exam General: alert & oriented x3 HEENT: mucus membranes moist Neck: supple neck Cardiac: regular rate and rhythm, S1/S2 Lungs: decreased breath sounds Neuro: cranial nerve 2-12 intact Extremities: other: (generalized edema) - Labs Result Diagrams: 02/24/19 08:45 02/26/19 08:27 Troponin/CKMB CK-MB (CK-2) 3.1 ng/mL (0-6.6) 02/22/19 06:48 Troponin I 0.037 ng/mL (< 0.028) H 02/22/19 12:39 - Telemetry Sinus rhythms and dysrhythmias: other (SR; 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 Aute on Chronic diastolic HF - On Lasix, Aldactone, Coreg 6.25mg BID and Isosorbide; not on SHANDRA/ARB due to hx of CKD; Slowly diuresing. 2. Severe MR - will refer to [place] for possible MV clip 3. HTN - stable with current med 4. CAD with hx of CABG x 3 in 2006 - 5. - may need a cardiac cath to evaluate the AV and the coronaries. If she needs a TAVR, she may need a pacemaker prior to the procedure. 6. CKD - stable 7. 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
[2019-02-27] MEDS: Minoxidil 2.5 MG TAB PO SCH (20:27)
[2019-02-27] MEDS: Atorvastatin Calcium 40 MG TAB PO SCH (20:28)
[2019-02-28] MEDS: Furosemide 40 MG/4 ML VIAL SLOW IVP SCH ×2 (05:25→14:57)
[2019-02-28 05:29] VITALS: BMI 28.9
[2019-02-28] MEDS: Fluticasone Propionate Nasal Spray 16 gm Bottle NASAL SCH (08:29)
[2019-02-28] MEDS: Fenofibrate Nanocrystallized 145 MG TAB PO SCH (08:29)
[2019-02-28] MEDS: Bumetanide 1 MG TAB PO SCH ×2 (08:30→21:24)
[2019-02-28] MEDS: Isosorbide Dinitrate 5 MG TAB PO SCH ×2 (08:30→21:23)
[2019-02-28] MEDS: hydrALAZINE 25 MG TAB PO SCH ×3 (08:30→21:24)
[2019-02-28] MEDS: Spironolactone 25 MG TAB PO SCH (08:30)
[2019-02-28] MEDS: Potassium Chloride 20 MEQ TAB PO SCH (08:30)
[2019-02-28] MEDS: Famotidine 20 MG TAB PO SCH (08:30)
[2019-02-28] MEDS: cloNIDine 0.2 MG TAB PO SCH ×2 (08:30→21:25)
[2019-02-28] MEDS: Carvedilol 6.25 MG TAB PO SCH ×2 (08:30→17:35)
[2019-02-28] MEDS: Glimepiride 4 MG TAB PO SCH (08:30)
[2019-02-28] MEDS: HumuLIN 70/30 (300 UNITS/3 ML VIAL) SC SCH (09:24)
--- NOTE | 2019-02-28 10:34 | PDOC.HOSPP ---
- Subjective Encounter Date: 02/28/19 Encounter Time: 10:32 Subjective: Ms. Hoff was seen today in follow-up of CHF exacerbation. She does not have any new complaints. - Objective Vital Signs & Weight: Vital Signs (12 hours) Temp Pulse Resp BP BP Pulse Ox 02/28/19 08:30 64 02/28/19 08:26 98.1 F 64 16 153/67 H 92 L 02/28/19 03:59 98.3 F 63 18 128/67 92 L Weight Weight 148 lb I&O: 02/27/19 02/28/19 03/01/19 06:59 06:59 06:59 Intake Total 50 1550 Output Total 1425 1999 Balance -1574 -450 Result Diagrams: 02/24/19 08:45 02/26/19 08:27 Additional Labs: Accuchecks 02/28/19 02/27/19 02/27/19 05:19 20:39 16:58 POC Glucose 125 H 230 H 63 L 02/27/19 12:08 POC Glucose 191 H Hospitalist ROS - Medication Medications: Active Medications Generic Name Dose Route Start Last Admin Trade Name Freq PRN Reason Stop Dose Admin Albuterol/Ipratropium 3 ml 02/23/19 08:28 02/27/19 22:09 Duoneb NEB 3 ml [id number] PRN Administration SOB &/or Wheezing Atorvastatin Calcium 40 mg 02/22/19 21:00 02/27/19 20:28 Lipitor PO 40 mg HS AISHA Administration Bumetanide 2 mg 02/23/19 21:00 02/28/19 08:30 Bumex PO 2 mg BID AISHA Administration Carvedilol 6.25 mg 02/24/19 08:00 02/28/19 08:30 Coreg PO 6.25 mg BID-WM AISHA Administration Clonidine 0.2 mg 02/22/19 21:00 02/28/19 08:30 Catapres PO 0.2 mg BID AISHA Administration Famotidine 20 mg 02/25/19 09:00 02/28/19 08:30 Pepcid PO 20 mg DAILY AISHA Administration Fenofibrate 145 mg 02/24/19 09:00 02/28/19 08:29 Tricor PO 145 mg DAILY AISHA Administration Fluticasone Propionate 0 gm 02/24/19 09:00 02/28/19 08:29 Flonase Nasal [place] NASAL 1 spr DAILY AISHA Administration Furosemide 40 mg 02/23/19 06:00 02/28/19 05:25 Lasix SLOW IVP 40 mg 0600,1400 AISHA Administration Glimepiride 4 mg 02/23/19 08:00 02/28/19 08:30 Amaryl PO 4 mg QAM-WM AISHA Administration Hydralazine HCl 100 mg 02/23/19 09:00 02/28/19 08:30 Apresoline PO 100 mg TID AISHA Administration Insulin Human Isoph/Insulin Regular 24 units 02/24/19 09:00 02/28/19 09:24 Humulin 70/30 SC 24 unit DAILY AISHA Administration Insulin Human Lispro 0 units 02/22/19 19:08 02/26/19 13:12 Humalog SC 6 unit .MODERATE SLIDING SC PRN Administration Moderate Correctional Scale Insulin Human Lispro 0 units 02/22/19 19:08 02/23/19 22:13 Humalog SC 4 unit .BEDTIME SLIDING SC PRN Administration Bedtime Correctional Scale Isosorbide Dinitrate 10 mg 02/23/19 09:00 02/28/19 08:30 Isordil PO 10 mg BID AISHA Administration Minoxidil 5 mg 02/22/19 21:00 02/27/19 20:27 Minoxidil PO 5 mg HS AISHA Administration Nifedipine 60 mg 02/23/19 17:00 02/27/19 17:54 Procardia Xl PO 60 mg 1700 AISHA Administration Potassium Chloride 20 meq 02/23/19 09:00 02/28/19 08:30 K-Dur PO 20 meq DAILY AISHA Administration Spironolactone 25 mg 02/26/19 08:00 02/28/19 08:30 Aldactone PO 25 mg QAM-WM AISHA Administration - Exam Eye: PERRL Heart: RRR, no murmur, no gallops, no rubs, normal peripheral pulses Respiratory: CTAB, no wheezes, no rales, no ronchi, normal chest expansion Gastrointestinal: soft, non-tender, non-distended, normal bowel sounds, no palpable masses, no hepatomegaly, no splenomegaly Extremities: no cyanosis, 1+ LE edema Hosp A/P (1) Acute on chronic diastolic CHF (congestive heart failure), NYHA class 3 Code(s): I50.33 - ACUTE ON CHRONIC DIASTOLIC (CONGESTIVE) HEART FAILURE Status : Acute (2) Hypertension Code(s): I10 - ESSENTIAL (PRIMARY) HYPERTENSION Status: Acute (3) DM2 (diabetes mellitus, type 2) Status: Chronic (4) Chronic kidney disease, stage 3 Code(s): N18.3 - CHRONIC KIDNEY DISEASE, STAGE 3 (MODERATE) Status: Chronic (5) Aortic stenosis, severe Code(s): I35.0 - NONRHEUMATIC AORTIC (VALVE) STENOSIS Status: Chronic (6) Mitral regurgitation Status: Chronic - Plan * Acute on chronic diastolic heart failure- clinically compensated * Aortic Stenosis- She is being evaluated for transfer to [place] for TAVR * DM- blood glucose is stable * HTN- blood pressure is stable * Chronic kidney disease- will check BMP
[2019-02-28 11:46] LABS: Anion Gap 15 mmol/L (10-20); BUN (Urea Nitrogen) 36 mg/dL (9.8-20.1); Calc. Creatinine Clearance 24 mL/min (70-130); Calcium 8.8 mg/dL (7.8-10.44); Carbon Dioxide 27 mmol/L (23-31); Chloride 101 mmol/L (98-107); Estimated GFR-MDRD 26; Glucose 191 mg/dL (83-110); Potassium 3.6 mmol/L (3.5-5.1); Sodium 139 mmol/L (136-145)
--- NOTE | 2019-02-28 12:22 | PDOC.CPN ---
- Subjective Date: 02/28/19 Time: 12:24 Interval history: The pt seen and examined. No overnight events. No cardiac complaints. - Objective Allergies/Adverse Reactions: Allergies Allergy/AdvReac Type Severity Reaction Status Date / Time No Known Allergies Allergy Verified 08/01/12 18:18 Visit Medications: Current Medications Acetaminophen (Tylenol) 650 mg PO Q4H PRN PRN Reason: Headache/Fever/Mild Pain (1-3) Albuterol/Ipratropium (Duoneb) 3 ml NEB [id number] PRN PRN Reason: SOB &/or Wheezing Last Admin: 02/27/19 22:09 Dose: 3 ml Atorvastatin Calcium (Lipitor) 40 mg PO HS COUNT INCLUDES THE [facility] Last Admin: 02/27/19 20:28 Dose: 40 mg Bumetanide (Bumex) 2 mg PO BID COUNT INCLUDES THE [facility] Last Admin: 02/28/19 08:30 Dose: 2 mg Carvedilol (Coreg) 6.25 mg PO BID-[facility] Last Admin: 02/28/19 08:30 Dose: 6.25 mg Clonidine (Catapres) 0.2 mg PO BID COUNT INCLUDES THE [facility] Last Admin: 02/28/19 08:30 Dose: 0.2 mg Dextrose/Water (Dextrose 50%) 25 gm SLOW IVP PRN PRN PRN Reason: Hypoglycemia Famotidine (Pepcid) 20 mg PO DAILY COUNT INCLUDES THE [facility] Last Admin: 02/28/19 08:30 Dose: 20 mg Fenofibrate (Tricor) 145 mg PO DAILY COUNT INCLUDES THE [facility] Last Admin: 02/28/19 08:29 Dose: 145 mg Fluticasone Propionate (Flonase Nasal [place]) 0 gm NASAL DAILY COUNT INCLUDES THE [facility] Last Admin: 02/28/19 08:29 Dose: 1 spr Furosemide (Lasix) 40 mg SLOW IVP 0600,1400 COUNT INCLUDES THE [facility] Last Admin: 02/28/19 05:25 Dose: 40 mg Glimepiride (Amaryl) 4 mg PO QAM-[facility] Last Admin: 02/28/19 08:30 Dose: 4 mg Glucagon (Glucagon) 1 mg IM PRN PRN PRN Reason: Hypoglycemia Hydralazine HCl (Apresoline) 100 mg PO TID COUNT INCLUDES THE [facility] Last Admin: 02/28/19 08:30 Dose: 100 mg Dextrose/Water (D5w) 1,000 mls @ 0 mls/hr IV .Q0M PRN PRN Reason: Hypoglycemia Insulin Human Isoph/Insulin Regular (Humulin 70/30) 24 units SC DAILY COUNT INCLUDES THE [facility] Last Admin: 02/28/19 09:24 Dose: 24 unit Insulin Human Lispro (Humalog) 0 units SC .MODERATE SLIDING SC PRN PRN Reason: Moderate Correctional Scale Last Admin: 02/26/19 13:12 Dose: 6 unit Insulin Human Lispro (Humalog) 0 units SC .BEDTIME SLIDING SC PRN PRN Reason: Bedtime Correctional Scale Last Admin: 02/23/19 22:13 Dose: 4 unit Isosorbide Dinitrate (Isordil) 10 mg PO BID COUNT INCLUDES THE [facility] Last Admin: 02/28/19 08:30 Dose: 10 mg Minoxidil (Minoxidil) 5 mg PO HS COUNT INCLUDES THE [facility] Last Admin: 02/27/19 20:27 Dose: 5 mg Nifedipine (Procardia Xl) 60 mg PO 1700 COUNT INCLUDES THE [facility] Last Admin: 02/27/19 17:54 Dose: 60 mg Potassium Chloride (K-Dur) 20 meq PO DAILY COUNT INCLUDES THE [facility] Last Admin: 02/28/19 08:30 Dose: 20 meq Vital Signs & Weight: Vital Signs Temp Pulse Resp BP BP Pulse Ox 02/28/19 08:30 64 02/28/19 08:26 98.1 F 64 16 153/67 H 92 L 02/28/19 08:00 98.2 F 50 L 17 116/57 L 95 02/28/19 07:35 92 L 02/28/19 03:59 98.3 F 63 18 128/67 92 L Weight 148 lb - Physical Exam General: alert & oriented x3 HEENT: mucus membranes moist Neck: supple neck Cardiac: regular rate and rhythm, S1/S2 Lungs: decreased breath sounds Neuro: cranial nerve 2-12 intact Extremities: other: (2+ pitting BLE edema) - Labs Result Diagrams: 02/24/19 08:45 02/28/19 10:55 Troponin/CKMB CK-MB (CK-2) 3.1 ng/mL (0-6.6) 02/22/19 06:48 Troponin I 0.037 ng/mL (< 0.028) H 02/22/19 12:39 - Telemetry Sinus rhythms and dysrhythmias: sinus rhythm - Assessment/Plan Assessment/Plan: 1. Aute on Chronic diastolic HF - On Lasix, bumax, Aldactone, Coreg 6.25mg BID and Isosorbide; not on SHANDRA/ARB due to hx of CKD; will stop aldactone due to worsening of renal function; Slowly diuresing. 2. Severe MR - She is being evaluated for transfer to [place] for TAVR and MV clip . The does not appear severe. TAVR probably not indicated. 3. HTN - stable with current med 4. CAD with hx of CABG x 3 in 2006 - 5. - may need a cardiac cath to evaluate the AV and the coronaries. If she needs a TAVR, she may need a pacemaker prior to the procedure.But I feel that the most significant problem is the MR and the AV is not an issue at this time. 6. CKD - The creat. is a little higher and I will ask dr. Madison to visit with the pt. to see if any additionalmanagement may be indicated. 7. 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 MAR reviewed * Echo in 12/2018 with EF 55-60%, mild VT, severe , MR, and TR * referral to Dr Roy for possible MV intervention. Pt. seen and eval. by me. I agree with the above assessment and plan. I will try to discuss her case with Dr. Roy. Chest is clear. Ireeg. rhythm. monitor appears to be in NSR with PAC's.. 2+ edema.
[2019-02-28] MEDS ORDERED: Sodium Chloride 0.9% 10 ML ONE (14:44)
[2019-02-28] MEDS: NIFEdipine XL 60 MG TAB PO SCH (17:35)
--- NOTE | 2019-02-28 19:15 | PRG ---
DATE OF SERVICE: 02/28/2019 SUBJECTIVE: Ms. Hoff is an 83-year-old white female, who was admitted for shortness of breath. Please note, she has underlying severe aortic stenosis. She is a candidate for TAVR in [place], but we are awaiting placement. She was diuresed on admission and currently renal function has been worsening. We are here to evaluate acute kidney injury. OBJECTIVE: VITAL SIGNS: Blood pressure is 125/56, heart rate 58, respiratory rate 18, temperature 97.6, and pulse ox 96% on room air. GENERAL: Awake, alert, and comfortable, not in distress. SKIN: Adequate turgor. HEENT: She has a pinkish conjunctivae. Anicteric sclerae. No neck mass. No carotid bruits. No JVD. CHEST: No deformities. LUNGS: Decreased breath sounds. HEART: Normal sinus rhythm. Grade 2/6 systolic murmur. No gallops. No rubs. ABDOMEN: Globular, soft, nontender. No masses. EXTREMITIES: Trace edema. MEDICATIONS: Of February 28, 2019was reviewed. LABORATORY DATA: Laboratories of February 28, 2019; sodium 139, potassium 3.6, chloride 101, carbon dioxide 27, BUN 36, and creatinine 1.86. February 26, 2019, creatinine 1.64. February 24, 2019, creatinine 1.59. February 23, 2019, creatinine 1.44. Urinalysis of February 22, 2019, was benign. ASSESSMENT AND PLAN: 1. Acute kidney injury-my bias is that is most likely hemodynamically-mediated renal dysfunction secondary to her diuretic regimen. My plan is simply to continue to observe her. She still has some mild shortness of breath. Once the shortness of breath is much improved, we can consider decreasing the dose of the Lasix. For the moment, no indication for any acute dialytic intervention. Continue supportive care. 2. Congestive heart failure, clinically improving on IV diuretics. 3. Aortic stenosis-for eventual transfer to [place] for transcatheter aortic valve replacement. Overall, prognosis remains guarded. 4. Urinalysis with urine chemistries have been ordered tonight. Job ID: [id number] MTDD
[2019-02-28] MEDS: Atorvastatin Calcium 40 MG TAB PO SCH (21:23)
[2019-02-28] MEDS: Minoxidil 2.5 MG TAB PO SCH (21:25)
[2019-02-28 21:49] LABS: Bilirubin Negative (Negative); Blood, Urine Negative (Negative); Clarity Clear (Clear); Glucose, Urine (Dipstick) Normal (Negative); Leukocyte 25 Leu/uL (Negative); Nitrite Negative (Negative); Protein, Urine (Dipstick) Negative (Neg-Trace); RBC/HPF 0-3 HPF (0-3); Squamous Epithelial 0-3 HPF (0-3); Urobilinogen Normal mg/dL (Less than 2); WBC/HPF 0-3 HPF (0-3)
[2019-02-28 21:53] LABS: Bacteria/HPF 1+ HPF (None Seen)
[2019-02-28 22:07] LABS: Creatinine, Urine 35.59 mg/dL (47-110)
[2019-03-01] MEDS: Furosemide 40 MG/4 ML VIAL SLOW IVP SCH (06:07)
[2019-03-01 08:26] LABS: Anion Gap 13 mmol/L (10-20); BUN (Urea Nitrogen) 35 mg/dL (9.8-20.1); Calc. Creatinine Clearance 26 mL/min (70-130); Calcium 9.6 mg/dL (7.8-10.44); Carbon Dioxide 30 mmol/L (23-31); Chloride 102 mmol/L (98-107); Estimated GFR-MDRD 28; Glucose 137 mg/dL (83-110); Potassium 3.8 mmol/L (3.5-5.1); Sodium 141 mmol/L (136-145)
[2019-03-01] MEDS: Fenofibrate Nanocrystallized 145 MG TAB PO SCH (08:32)
[2019-03-01] MEDS: Carvedilol 6.25 MG TAB PO SCH ×2 (08:32→17:34)
[2019-03-01] MEDS: Famotidine 20 MG TAB PO SCH (08:32)
[2019-03-01] MEDS: Bumetanide 1 MG TAB PO SCH ×2 (08:33→20:29)
[2019-03-01] MEDS: cloNIDine 0.2 MG TAB PO SCH ×2 (08:33→20:29)
[2019-03-01] MEDS: hydrALAZINE 25 MG TAB PO SCH ×3 (08:33→20:29)
[2019-03-01] MEDS: Potassium Chloride 20 MEQ TAB PO SCH (08:33)
[2019-03-01] MEDS: Glimepiride 1 MG TAB PO SCH (08:48)
[2019-03-01] MEDS: Fluticasone Propionate Nasal Spray 16 gm Bottle NASAL SCH (08:49)
[2019-03-01] MEDS: Isosorbide Dinitrate 5 MG TAB PO SCH ×2 (08:53→20:29)
[2019-03-01] MEDS ORDERED: NPH, Human Insulin Isophane 300 UNIT/3 ML VIAL SC SCH (09:00)
--- NOTE | 2019-03-01 09:20 | PRG ---
DATE OF SERVICE: 03/01/2019 SERVICE: Renal Medicine. SUBJECTIVE: Ms. Hoff is an 83-year-old female, who was admitted for CHF. She has underlying aortic stenosis and is supposed to be transferred to [place] for a TAVR. We are seeing this patient for her acute kidney injury on top of her chronic renal failure. She had a superimposed hemodynamically-mediated renal dysfunction. Currently, on diuretic regimen. Renal function is stabilizing. Shortness of breath is improving. OBJECTIVE: VITAL SIGNS: Blood pressure 135/61, heart rate 73, respiratory rate 18, temperature 98.2, and pulse ox 96% on room air. GENERAL: Noted to be awake, alert, comfortable, not in distress. SKIN: Adequate turgor. HEENT: Pinkish conjunctivae. Anicteric sclerae. NECK: No neck mass. No carotid bruits. No JVD. CHEST: No deformities. LUNGS: Decreased breath sounds. HEART: Normal sinus rhythm. No murmur. No gallops. No rubs. ABDOMEN: Globular, soft, and nontender. No masses. EXTREMITIES: Positive for edema, but no deformities. LABORATORIES: Urinalysis of February 28, 2019 showed no protein, no pigmented granular casts noted. Urine sodium is 75. Urine creatinine is 35.59. ASSESSMENT AND PLAN: 1. Acute kidney injury on top of her chronic renal failure. I still suspect a hemodynamically-mediated dysfunction secondary to the use of her diuretics. Renal function is stabilizing. We will leave the current dose of diuretics as it is. There is no evidence of any acute tubular necrosis with this patient. There is no indication for any dialytic intervention. 2. Congestive heart failure, clinically improving. Continue current management. Continue diuretic regimen. 3. Aortic stenosis, for eventual transfer to [place] for transaortic valve replacement. 4. Agree with current management. Job ID: [id number]
[2019-03-01] MEDS ORDERED: Aspirin 325 MG TAB PO SCH (12:00)
[2019-03-01] MEDS ORDERED: Furosemide 20 MG TAB PO SCH (14:00)
--- NOTE | 2019-03-01 14:11 | PDOC.HOSPP ---
- Subjective Encounter Date: 03/01/19 Encounter Time: 12:30 Subjective: Patient seen and examined for NATI/CHF. No CP. No new complaints. No overnight events - Objective Vital Signs & Weight: Vital Signs (12 hours) Temp Pulse Pulse Pulse Resp BP BP 03/01/19 12:00 98.0 F 60 18 03/01/19 10:44 62 76 136/63 03/01/19 08:33 73 135/61 03/01/19 08:32 135/61 03/01/19 07:35 98.2 F 73 18 03/01/19 03:28 97.6 F 71 18 BP BP BP Pulse Ox Pulse Ox Pulse Ox 03/01/19 12:00 130/56 L 94 L 03/01/19 10:44 123/56 L 93 L 93 L 03/01/19 08:33 03/01/19 08:32 03/01/19 07:35 135/61 96 03/01/19 03:28 157/68 H 94 L Weight Weight 147 lb I&O: 02/28/19 03/01/19 03/02/19 06:59 06:59 06:59 Intake Total 1550 1210 Output Total 2000 1150 Balance -450 60 Result Diagrams: 02/24/19 08:45 03/01/19 08:04 Additional Labs: Accuchecks 03/01/19 03/01/19 02/28/19 11:04 05:38 20:40 POC Glucose 245 H 178 H 114 H 02/28/19 02/28/19 02/28/19 20:10 17:15 10:59 POC Glucose 45 L* 109 204 H EKG Reviewed by me: Yes (Tele SR) Hospitalist ROS - Review of Systems Cardiovascular: reports: edema. denies: chest pain, palpitations, orthopnea, paroxysmal noc. dyspnea, light headedness, other Gastrointestinal: denies: nausea, vomiting, abdominal pain, diarrhea, constipation, melena, hematochezia, other - Medication Medications: Active Medications Generic Name Dose Route Start Last Admin Trade Name Freq PRN Reason Stop Dose Admin Albuterol/Ipratropium 3 ml 02/23/19 08:28 02/27/19 22:09 Duoneb NEB 3 ml [id number] PRN Administration SOB &/or Wheezing Atorvastatin Calcium 40 mg 02/22/19 21:00 02/28/19 21:23 Lipitor PO 40 mg HS AISHA Administration Bumetanide 2 mg 02/23/19 21:00 03/01/19 08:33 Bumex PO 2 mg BID AISHA Administration Carvedilol 6.25 mg 02/24/19 08:00 03/01/19 08:32 Coreg PO 6.25 mg BID-WM AISHA Administration Clonidine 0.2 mg 02/22/19 21:00 03/01/19 08:33 Catapres PO 0.2 mg BID AISHA Administration Famotidine 20 mg 02/25/19 09:00 03/01/19 08:32 Pepcid PO 20 mg DAILY AISHA Administration Fenofibrate 145 mg 02/24/19 09:00 03/01/19 08:32 Tricor PO 145 mg DAILY AISHA Administration Fluticasone Propionate 0 gm 02/24/19 09:00 03/01/19 08:49 Flonase Nasal [place] NASAL 2 spr DAILY AISHA Administration Glimepiride 1 mg 03/01/19 08:00 03/01/19 08:48 Amaryl PO 1 mg QAM-WM AISHA Administration Hydralazine HCl 100 mg 02/23/19 09:00 03/01/19 08:33 Apresoline PO 100 mg TID AISHA Administration Insulin Human Lispro 0 units 02/22/19 19:08 02/23/19 22:13 Humalog SC 4 unit .BEDTIME SLIDING SC PRN Administration Bedtime Correctional Scale Isosorbide Dinitrate 10 mg 02/23/19 09:00 03/01/19 08:53 Isordil PO 10 mg BID AISHA Administration Minoxidil 5 mg 02/22/19 21:00 02/28/19 21:25 Minoxidil PO 5 mg HS AISHA Administration Nifedipine 60 mg 02/23/19 17:00 02/28/19 17:35 Procardia Xl PO 60 mg 1700 AISHA Administration Potassium Chloride 20 meq 02/23/19 09:00 03/01/19 08:33 K-Dur PO 20 meq DAILY AISHA Administration - Exam General Appearance: NAD Heart: RRR, no gallops, murmur present Respiratory: no wheezes, no rales, rhonchi Gastrointestinal: soft, non-distended, normal bowel sounds Extremities: 2+ LE edema Hosp A/P - Plan DVT proph w/SCDs Acute on chronic diastolic heart failure (POA) Severe and MR NATI on CKD 3 HTN CAD s/p CABG 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
[2019-03-01] MEDS: HumaLOG 300 UNITS/3 ML VIAL SC PRN (17:33)
[2019-03-01] MEDS: NIFEdipine XL 60 MG TAB PO SCH (17:34)
[2019-03-01] MEDS: Minoxidil 2.5 MG TAB PO SCH (20:29)
[2019-03-01] MEDS: Atorvastatin Calcium 40 MG TAB PO SCH (20:30)
[2019-03-02 04:59] LABS: #Eosinphils 0.3 thou/uL (0.0-0.7); #Lymphocytes 1.2 thou/uL (1.20-3.40); #Monocytes 0.5 thou/uL (0.11-0.59); #Neutrophils 4.1 thou/uL (1.40-6.50); %Basophils 0.8 % (0.0-1.0); %Eosinophils 5.1 % (0.0-10.0); %Lymphocytes 19.2 % (21.0-51.0); %Monocytes 7.8 % (0.0-10.0); %Neutrophils 67.2 % (42.0-75.0); Hemoglobin 9.5 g/dL (12.0-16.0); Mean Corpuscular HGB CONC 33.7 g/dL (32.0-36.0); Mean Corpuscular Hemoglobin 30.4 pg (27.0-31.0); Mean Corpuscular Volume 90.1 fL (78.0-98.0); Mean Platelet Volume 8.3 fL (7.4-10.4); Platelet Count 209 thou/uL (130-400); RBC Distribution Width 13.1 % (11.5-14.5); Red Blood Cell (RBC) Count 3.12 mill/uL (4.20-5.40); White Blood Cell (WBC) Count 6.1 thou/uL (4.8-10.8)
[2019-03-02 05:17] LABS: Anion Gap 12 mmol/L (10-20); BUN (Urea Nitrogen) 38 mg/dL (9.8-20.1); Calc. Creatinine Clearance 25 mL/min (70-130); Calcium 9.2 mg/dL (7.8-10.44); Carbon Dioxide 30 mmol/L (23-31); Chloride 102 mmol/L (98-107); Estimated GFR-MDRD 28; Glucose 158 mg/dL (83-110); Potassium 3.6 mmol/L (3.5-5.1); Sodium 140 mmol/L (136-145)
[2019-03-02] MEDS: Carvedilol 6.25 MG TAB PO SCH ×2 (08:38→16:04)
[2019-03-02] MEDS: Glimepiride 1 MG TAB PO SCH (08:39)
[2019-03-02] MEDS: Aspirin 325 MG TAB PO SCH (08:40)
[2019-03-02] MEDS: cloNIDine 0.2 MG TAB PO SCH ×2 (08:40→20:06)
[2019-03-02] MEDS: Bumetanide 1 MG TAB PO SCH ×2 (08:40→20:05)
[2019-03-02] MEDS: Fenofibrate Nanocrystallized 145 MG TAB PO SCH (08:41)
[2019-03-02] MEDS: Famotidine 20 MG TAB PO SCH (08:41)
[2019-03-02] MEDS: hydrALAZINE 25 MG TAB PO SCH ×3 (08:42→20:04)
[2019-03-02] MEDS: Fluticasone Propionate Nasal Spray 16 gm Bottle NASAL SCH (08:42)
[2019-03-02] MEDS: Isosorbide Dinitrate 5 MG TAB PO SCH ×2 (08:43→20:05)
[2019-03-02] MEDS: Potassium Chloride 20 MEQ TAB PO SCH (08:43)
[2019-03-02] MEDS: NPH, Human Insulin Isophane 300 UNIT/3 ML VIAL SC SCH (08:46)
--- NOTE | 2019-03-02 09:59 | PRG ---
DATE OF SERVICE: 03/02/2019 SUBJECTIVE: Ms. Hoff is an 83-year-old female, seen by the Renal Service for acute kidney injury that was hemodynamically-mediated renal dysfunction. The patient is currently being diuresed for her CHF. She has underlying aortic valve disease. The plan is to transfer to [place] for possible valve replacement. Unclear if she is a candidate for TAVR, but this will be re-evaluated by the cardiothoracic surgeon in [place]. She is feeling better. She is breathing better. She continues to be on her diuretic regimen. OBJECTIVE: VITAL SIGNS: Blood pressure is 130/64, heart rate 73, respiratory rate 18, temperature 97.3, pulse ox 96%. GENERAL: The patient is awake, alert, comfortable, not in distress. SKIN: Adequate turgor. HEENT: Pinkish conjunctivae. Anicteric sclerae. NECK: No neck mass. No carotid bruits. No JVD. CHEST: No deformities. LUNGS: Clear breath sounds. HEART: Normal sinus rhythm. Grade 2/6 systolic murmur. No gallops, no rubs. ABDOMEN: Globular, soft, and nontender. No masses. EXTREMITIES: No edema. No deformities. MEDICATIONS: Of March 02, 2019, reviewed. LABORATORY DATA: Laboratories of March 02, 2019: White count 6.1, hemoglobin 9.5. Sodium 140, potassium 3.6, chloride 102, carbon dioxide 30, BUN 38, creatinine 1.76, calcium is 9.2. ASSESSMENT AND PLAN: 1. Acute kidney injury - superimposed hemodynamically-mediated renal dysfunction. Creatinine is stable with a creatinine of 1.76. Continue current diuretic regimen, no changes to be made. No indication for any dialytic intervention. 2. Congestive heart failure, clinically much improved. Currently, on bumetanide. 3. Aortic valve disease, for eventual transfer to [place] for possible intervention with her aortic valve disease - aortic stenosis. 4. Recheck basic metabolics and CBC in a.m. Job ID: [id number]
[2019-03-02] MEDS ORDERED: Furosemide 40 MG/4 ML VIAL SLOW IVP SCH (11:00)
[2019-03-02] MEDS: HumaLOG 300 UNITS/3 ML VIAL SC PRN (12:33)
--- NOTE | 2019-03-02 15:13 | PDOC.HOSPP ---
- Subjective Encounter Date: 03/02/19 Encounter Time: 09:45 Subjective: Patient seen and examined for CHF. SOB on exertion. No new complaints. No overnight events - Objective Vital Signs & Weight: Vital Signs (12 hours) Temp Pulse Resp BP BP BP Pulse Ox 03/02/19 14:29 67 126/65 03/02/19 12:00 98.6 F 62 16 124/63 96 03/02/19 08:42 73 03/02/19 08:38 130/64 03/02/19 08:02 96 03/02/19 08:00 97.3 F L 73 18 130/64 96 03/02/19 03:20 97.7 F 76 20 153/64 H 94 L Weight Weight 145 lb 14.4 oz I&O: 03/01/19 03/02/19 03/03/19 06:59 06:59 06:59 Intake Total 1210 870 Output Total 1150 1850 Balance 60 -980 Result Diagrams: 03/03/19 03:26 03/03/19 03:26 Additional Labs: Accuchecks 03/02/19 03/02/19 03/02/19 10:32 05:35 00:41 POC Glucose 295 H 160 H 189 H 03/01/19 03/01/19 20:24 17:00 POC Glucose 174 H 273 H EKG Reviewed by me: Yes (Tele SR) Hospitalist ROS - Review of Systems Respiratory: reports: SOB with excertion. denies: cough, dry, shortness of breath, hemoptysis, pleuritic pain, sputum, wheezing, other Cardiovascular: denies: chest pain, palpitations, orthopnea, paroxysmal noc. dyspnea, edema, light headedness, other - Medication Medications: Active Medications Generic Name Dose Route Start Last Admin Trade Name Freq PRN Reason Stop Dose Admin Albuterol/Ipratropium 3 ml 02/23/19 08:28 02/27/19 22:09 Duoneb NEB 3 ml [id number] PRN Administration SOB &/or Wheezing Aspirin 325 mg 03/02/19 09:00 03/02/19 08:40 Aspirin PO 325 mg DAILY AISHA Administration Atorvastatin Calcium 40 mg 02/22/19 21:00 03/01/19 20:30 Lipitor PO 40 mg HS AISHA Administration Bumetanide 2 mg 02/23/19 21:00 03/02/19 08:40 Bumex PO 2 mg BID AISHA Administration Carvedilol 6.25 mg 02/24/19 08:00 03/02/19 08:38 Coreg PO 6.25 mg BID-WM AISHA Administration Clonidine 0.2 mg 02/22/19 21:00 03/02/19 08:40 Catapres PO 0.2 mg BID AISHA Administration Famotidine 20 mg 02/25/19 09:00 03/02/19 08:41 Pepcid PO 20 mg DAILY AISHA Administration Fenofibrate 145 mg 02/24/19 09:00 03/02/19 08:41 Tricor PO 145 mg DAILY AISHA Administration Fluticasone Propionate 0 gm 02/24/19 09:00 03/02/19 08:42 Flonase Nasal [place] NASAL 2 spr DAILY AISHA Administration Glimepiride 1 mg 03/01/19 08:00 03/02/19 08:39 Amaryl PO 1 mg QAM-WM AISHA Administration Hydralazine HCl 100 mg 02/23/19 09:00 03/02/19 14:29 Apresoline PO 100 mg TID AISHA Administration Insulin Human Lispro 0 units 02/22/19 19:08 02/23/19 22:13 Humalog SC 4 unit .BEDTIME SLIDING SC PRN Administration Bedtime Correctional Scale Insulin Human Lispro 0 units 03/01/19 11:41 03/02/19 12:33 Humalog SC 4 unit .MILD SLIDING SCALE PRN Administration Mild Correctional Scale Insulin Human NPH 10 unit 03/02/19 09:00 03/02/19 08:46 Humulin N SC 10 unit DAILY AISHA Administration Isosorbide Dinitrate 10 mg 02/23/19 09:00 03/02/19 08:43 Isordil PO 10 mg BID AISHA Administration Minoxidil 5 mg 02/22/19 21:00 03/01/19 20:29 Minoxidil PO 5 mg HS AISHA Administration Nifedipine 60 mg 02/23/19 17:00 03/01/19 17:34 Procardia Xl PO 60 mg 1700 AISHA Administration Potassium Chloride 20 meq 02/23/19 09:00 03/02/19 08:43 K-Dur PO 20 meq DAILY AISHA Administration - Exam General Appearance: NAD Heart: RRR, no gallops Respiratory: no wheezes, no rales, rhonchi Gastrointestinal: soft, non-tender, normal bowel sounds Extremities: 1+ LE edema Hosp A/P - Plan DVT proph w/SCDs Acute on chronic diastolic heart failure Severe and MR NATI on CKD 3 - improving HTN CAD s/p CABG 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
[2019-03-02] MEDS: NIFEdipine XL 60 MG TAB PO SCH (16:04)
[2019-03-02] MEDS: Atorvastatin Calcium 40 MG TAB PO SCH (20:06)
[2019-03-02] MEDS: Minoxidil 2.5 MG TAB PO SCH (20:06)
[2019-03-02] MEDS ORDERED: Melatonin 3 MG TAB PO PRN (21:24)
[2019-03-03 03:51] LABS: #Eosinphils 0.2 thou/uL (0.0-0.7); #Monocytes 0.4 thou/uL (0.11-0.59); #Neutrophils 3.6 thou/uL (1.40-6.50); %Basophils 0.5 % (0.0-1.0); %Eosinophils 4.4 % (0.0-10.0); %Lymphocytes 18.8 % (21.0-51.0); %Monocytes 6.7 % (0.0-10.0); %Neutrophils 69.5 % (42.0-75.0); Mean Corpuscular HGB CONC 32.1 g/dL (32.0-36.0); Mean Corpuscular Hemoglobin 28.6 pg (27.0-31.0); Mean Corpuscular Volume 89.4 fL (78.0-98.0); Mean Platelet Volume 8.8 fL (7.4-10.4); Platelet Count 197 thou/uL (130-400); RBC Distribution Width 13.1 % (11.5-14.5); Red Blood Cell (RBC) Count 3.15 mill/uL (4.20-5.40); White Blood Cell (WBC) Count 5.2 thou/uL (4.8-10.8)
[2019-03-03 04:09] LABS: Anion Gap 13 mmol/L (10-20); BUN (Urea Nitrogen) 41 mg/dL (9.8-20.1); Calc. Creatinine Clearance 26 mL/min (70-130); Carbon Dioxide 29 mmol/L (23-31); Chloride 101 mmol/L (98-107); Estimated GFR-MDRD 28; Glucose 155 mg/dL (83-110); Potassium 3.5 mmol/L (3.5-5.1); Sodium 139 mmol/L (136-145)
[2019-03-03] MEDS: Carvedilol 6.25 MG TAB PO SCH ×2 (08:49→17:12)
[2019-03-03] MEDS: Bumetanide 1 MG TAB PO SCH ×2 (08:51→19:52)
[2019-03-03] MEDS: Glimepiride 1 MG TAB PO SCH (08:51)
[2019-03-03] MEDS: Aspirin 325 MG TAB PO SCH (08:51)
[2019-03-03] MEDS: cloNIDine 0.2 MG TAB PO SCH ×2 (08:52→19:53)
[2019-03-03] MEDS: hydrALAZINE 25 MG TAB PO SCH ×3 (08:52→19:53)
[2019-03-03] MEDS: NPH, Human Insulin Isophane 300 UNIT/3 ML VIAL SC SCH (08:53)
[2019-03-03] MEDS: Isosorbide Dinitrate 5 MG TAB PO SCH ×2 (08:53→19:58)
[2019-03-03] MEDS: Fluticasone Propionate Nasal Spray 16 gm Bottle NASAL SCH (09:02)
[2019-03-03] MEDS: Potassium Chloride 20 MEQ TAB PO SCH (09:03)
--- NOTE | 2019-03-03 09:10 | PRG ---
DATE OF SERVICE: 03/03/2019 SUBJECTIVE: Ms. Hoff is 83-year-old white female, who was seen for an acute kidney injury on top of her chronic renal failure. She was initially admitted for CHF. She has underlying valvular aortic valve disease. The plan is to transfer to [place] for intervention-unclear if she will be a candidate for TAVR. She will be evaluated by the cardiothoracic surgeon in [place]. We are seeing this patient for her acute kidney injury. She is asymptomatic today. Denies any chest pain or shortness of breath. OBJECTIVE: VITAL SIGNS: Blood pressure is 133/63, heart rate 70, respiratory rate 16, temperature 97.9, pulse ox 94%. GENERAL: Noted to be awake, alert, comfortable, not in distress. SKIN: Adequate turgor. HEENT: She has pinkish conjunctivae. Anicteric sclerae. NECK: No neck mass. No carotid bruits. No JVD. CHEST: No deformities. LUNGS: Clear breath sounds. HEART: Normal sinus rhythm. Grade 2/6 systolic murmur. No gallops. No rubs. ABDOMEN: Globular, soft, nontender. EXTREMITIES: Positive for edema. MEDICATIONS: Medications of March 03, 2019, were reviewed. LABORATORY DATA: Laboratories of March 03, 2019; white count 5.2, hemoglobin 9. Sodium 139, potassium 3.5, chloride 101, carbon dioxide 29, BUN 41, creatinine 1.72, calcium 9.0. ASSESSMENT AND PLAN: 1. Acute kidney injury-superimposed hemodynamically-mediated renal dysfunction. Most likely related to her previous diuretic regimen. Currently, diuretics have been placed on hold. She is relatively stable from a renal point of view. No indication for any dialytic intervention. 2. Congestive heart failure, clinically much improved. 3. Aortic valve disease. For eventual transfer to [place] to address her underlying aortic stenosis. Agree with current management. Recheck basic metabolic panel and CBC in a.m. Job ID: [id number]
--- NOTE | 2019-03-03 11:54 | PDOC.CPN ---
- Subjective Date: 03/03/19 Time: 11:54 Interval history: The pt seen and examined. No overnight events. No cardiac complaints. - Objective Allergies/Adverse Reactions: Allergies Allergy/AdvReac Type Severity Reaction Status Date / Time No Known Allergies Allergy Verified 08/01/12 18:18 Visit Medications: Current Medications Acetaminophen (Tylenol) 650 mg PO Q4H PRN PRN Reason: Headache/Fever/Mild Pain (1-3) Albuterol/Ipratropium (Duoneb) 3 ml NEB [id number] PRN PRN Reason: SOB &/or Wheezing Last Admin: 02/27/19 22:09 Dose: 3 ml Aspirin (Aspirin) 325 mg PO DAILY [facility] Last Admin: 03/03/19 08:51 Dose: 325 mg Atorvastatin Calcium (Lipitor) 40 mg PO HS [facility] Last Admin: 03/02/19 20:06 Dose: 40 mg Bumetanide (Bumex) 2 mg PO BID [facility] Last Admin: 03/03/19 08:51 Dose: 2 mg Carvedilol (Coreg) 6.25 mg PO BID-[facility] Last Admin: 03/03/19 08:49 Dose: 6.25 mg Clonidine (Catapres) 0.2 mg PO BID [facility] Last Admin: 03/03/19 08:52 Dose: 0.2 mg Dextrose/Water (Dextrose 50%) 25 gm SLOW IVP PRN PRN PRN Reason: Hypoglycemia Famotidine (Pepcid) 20 mg PO DAILY [facility] Last Admin: 03/02/19 08:41 Dose: 20 mg Fenofibrate (Tricor) 145 mg PO DAILY [facility] Last Admin: 03/02/19 08:41 Dose: 145 mg Fluticasone Propionate (Flonase Nasal [place]) 0 gm NASAL DAILY [facility] Last Admin: 03/03/19 09:02 Dose: 1 spr Glimepiride (Amaryl) 1 mg PO QAM-[facility] Last Admin: 03/03/19 08:51 Dose: 1 mg Glucagon (Glucagon) 1 mg IM PRN PRN PRN Reason: Hypoglycemia Hydralazine HCl (Apresoline) 100 mg PO TID [facility] Last Admin: 03/03/19 08:52 Dose: 100 mg Dextrose/Water (D5w) 1,000 mls @ 0 mls/hr IV .Q0M PRN PRN Reason: Hypoglycemia Insulin Human Lispro (Humalog) 0 units SC .BEDTIME SLIDING SC PRN PRN Reason: Bedtime Correctional Scale Last Admin: 02/23/19 22:13 Dose: 4 unit Insulin Human Lispro (Humalog) 0 units SC .MILD SLIDING SCALE PRN PRN Reason: Mild Correctional Scale Last Admin: 03/02/19 12:33 Dose: 4 unit Insulin Human NPH (Humulin N) 10 unit SC DAILY [facility] Last Admin: 03/03/19 08:53 Dose: 10 unit Isosorbide Dinitrate (Isordil) 10 mg PO BID [facility] Last Admin: 03/03/19 08:53 Dose: 10 mg Melatonin (Melatonin) 3 mg PO HS PRN PRN Reason: Insomnia Minoxidil (Minoxidil) 5 mg PO HS [facility] Last Admin: 03/02/19 20:06 Dose: 5 mg Nifedipine (Procardia Xl) 60 mg PO 1700 [facility] Last Admin: 03/02/19 16:04 Dose: 60 mg Potassium Chloride (K-Dur) 20 meq PO DAILY [facility] Last Admin: 03/03/19 09:03 Dose: 20 meq Vital Signs & Weight: Vital Signs Temp Pulse Resp BP BP Pulse Ox 03/03/19 08:00 98.0 F 64 16 150/61 H 96 03/03/19 05:15 133/63 03/03/19 04:29 97.9 F 70 16 187/73 H 94 L Weight 145 lb 1.6 oz - Physical Exam General: alert & oriented x3 HEENT: mucus membranes moist Neck: supple neck Cardiac: regular rate and rhythm, S1/S2 Lungs: clear to auscultation Neuro: cranial nerve 2-12 intact - Labs Result Diagrams: 03/03/19 03:26 03/03/19 03:26 Troponin/CKMB CK-MB (CK-2) 3.1 ng/mL (0-6.6) 02/22/19 06:48 Troponin I 0.037 ng/mL (< 0.028) H 02/22/19 12:39 - Telemetry Sinus rhythms and dysrhythmias: sinus rhythm - Assessment/Plan Assessment/Plan: 1. Aute on Chronic diastolic HF - On Lasix, bumax, Aldactone, Coreg 6.25mg BID and Isosorbide; not on SHANDRA/ARB due to hx of CKD; will stop aldactone due to worsening of renal function; Slowly diuresing. 2. Severe MR - She is being evaluated for transfer to [place] for MV clip by Dr Roy. The does not appear severe. TAVR probably not indicated. 3. HTN - stable with current med 4. CAD with hx of CABG x 3 in 2006 - 5. - may need a cardiac cath to evaluate the AV and the coronaries. If she needs a TAVR, she may need a pacemaker prior to the procedure.But I feel that the most significant problem is the MR and the AV is not an issue at this time. 6. CKD - The creat. is a little higher and I will ask dr. Madison to visit with the pt. to see if any additionalmanagement may be indicated. 7. 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 HAKEEM reviewed * Echo in 12/2018 with EF 55-60%, mild NJ, severe , MR, and TR * will tx to [facility] for MV intervention by Dr Roy (Dr Horvath already discussed with Dr Roy today) Pt. seen and eval. by me. I agree with the A/P by the PILE HEADER.I have discussed the plan with the pt. and family. chest clear. RRR. Murmur unchanged.
[2019-03-03 12:23] VITALS: TEMP 97.7
[2019-03-03] MEDS: Famotidine 20 MG TAB PO SCH (13:07)
[2019-03-03] MEDS: Fenofibrate Nanocrystallized 145 MG TAB PO SCH (13:08)
[2019-03-03] MEDS: HumaLOG 300 UNITS/3 ML VIAL SC PRN (13:30)
[2019-03-03] MEDS: NIFEdipine XL 60 MG TAB PO SCH (17:12)
--- NOTE | 2019-03-03 19:11 | PDOC.HOSPP ---
- Subjective Encounter Date: 03/03/19 Encounter Time: 13:00 Subjective: Patient seen and examined for CHF. No CP. No new complaints. No overnight events - Objective Vital Signs & Weight: Vital Signs (12 hours) Temp Pulse Pulse Pulse Resp BP BP 03/03/19 16:00 97.7 F 62 16 03/03/19 12:00 97.7 F 85 14 03/03/19 11:27 60 56 L 150/66 H 142/63 H 03/03/19 08:00 98.0 F 64 16 BP Pulse Ox Pulse Ox Pulse Ox 03/03/19 16:00 142/63 H 99 03/03/19 12:00 150/66 H 95 03/03/19 11:27 95 93 L 03/03/19 08:00 150/61 H 96 Weight Weight 145 lb 1.6 oz I&O: 03/02/19 03/03/19 03/04/19 06:59 06:59 06:59 Intake Total 870 1089 Output Total 1850 1600 Balance -980 -511 Result Diagrams: 03/03/19 03:26 03/03/19 03:26 Additional Labs: Accuchecks 03/03/19 03/03/19 03/03/19 17:04 11:21 05:45 POC Glucose 102 286 H 155 H 03/03/19 03/02/19 01:10 20:43 POC Glucose 189 H 217 H EKG Reviewed by me: Yes (Tele SR) Hospitalist ROS - Review of Systems Respiratory: reports: SOB with excertion. denies: cough, dry, shortness of breath, hemoptysis, pleuritic pain, sputum, wheezing, other Cardiovascular: denies: chest pain, palpitations, orthopnea, paroxysmal noc. dyspnea, edema, light headedness, other - Medication Medications: Active Medications Generic Name Dose Route Start Last Admin Trade Name Freq PRN Reason Stop Dose Admin Albuterol/Ipratropium 3 ml 02/23/19 08:28 02/27/19 22:09 Duoneb NEB 3 ml [id number] PRN Administration SOB &/or Wheezing Aspirin 325 mg 03/02/19 09:00 03/03/19 08:51 Aspirin PO 325 mg DAILY [facility] Administration Atorvastatin Calcium 40 mg 02/22/19 21:00 03/02/19 20:06 Lipitor PO 40 mg HS [facility] Administration Bumetanide 2 mg 02/23/19 21:00 03/03/19 08:51 Bumex PO 2 mg BID [facility] Administration Carvedilol 6.25 mg 02/24/19 08:00 03/03/19 17:12 Coreg PO 6.25 mg BID-WM [facility] Administration Clonidine 0.2 mg 02/22/19 21:00 03/03/19 08:52 Catapres PO 0.2 mg BID [facility] Administration Famotidine 20 mg 02/25/19 09:00 03/03/19 13:07 Pepcid PO Not Given DAILY [facility] Fenofibrate 145 mg 02/24/19 09:00 03/03/19 13:08 Tricor PO Not Given DAILY [facility] Fluticasone Propionate 0 gm 02/24/19 09:00 03/03/19 09:02 Flonase Nasal [place] NASAL 1 spr DAILY [facility] Administration Glimepiride 1 mg 03/01/19 08:00 03/03/19 08:51 Amaryl PO 1 mg QAM-WM [facility] Administration Hydralazine HCl 100 mg 02/23/19 09:00 03/03/19 15:42 Apresoline PO 100 mg TID [facility] Administration Insulin Human Lispro 0 units 02/22/19 19:08 02/23/19 22:13 Humalog SC 4 unit .BEDTIME SLIDING SC PRN Administration Bedtime Correctional Scale Insulin Human Lispro 0 units 03/01/19 11:41 03/03/19 13:30 Humalog SC 4 unit .MILD SLIDING SCALE PRN Administration Mild Correctional Scale Insulin Human NPH 10 unit 03/02/19 09:00 03/03/19 08:53 Humulin N SC 10 unit DAILY [facility] Administration Isosorbide Dinitrate 10 mg 02/23/19 09:00 03/03/19 08:53 Isordil PO 10 mg BID [facility] Administration Minoxidil 5 mg 02/22/19 21:00 03/02/19 20:06 Minoxidil PO 5 mg HS [facility] Administration Nifedipine 60 mg 02/23/19 17:00 03/03/19 17:12 Procardia Xl PO 60 mg 1700 [facility] Administration Potassium Chloride 20 meq 02/23/19 09:00 03/03/19 09:03 K-Dur PO 20 meq DAILY [facility] Administration - Exam General Appearance: NAD Heart: no gallops, murmur present Respiratory: no wheezes, rhonchi Gastrointestinal: non-tender, non-distended, normal bowel sounds Extremities: no cyanosis, 1+ LE edema Hosp A/P - Plan DVT proph w/SCDs Acute on chronic diastolic heart failure Severe and MR NATI on CKD 3 HTN CAD s/p CABG DM2 with hypoglycemia 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
[2019-03-03] MEDS: Minoxidil 2.5 MG TAB PO SCH (19:52)
[2019-03-03] MEDS: Atorvastatin Calcium 40 MG TAB PO SCH (19:53)
[2019-03-03 19:54] VITALS: BP 147/62
--- NOTE | 2019-03-04 09:37 | DIS ---
DATE OF ADMISSION: 02/22/2019 DATE OF DISCHARGE: 03/03/2019 DISCHARGE DISPOSITION: To [facility]. ALLERGIES: NO KNOWN DRUG ALLERGIES. DISCHARGE MEDICATIONS: 1. Carvedilol 6.25 mg b.i.d. 2. Glimepiride 1 mg daily. 3. Isordil 10 mg b.i.d. 4. Minoxidil 5 mg daily. 5. Procardia XL 60 mg daily. 6. NPH 10 units daily. 7. Clonidine 0.2 b.i.d. 8. Bumex 2 mg b.i.d. 9. Lipitor 40 mg at bedtime. 10. Aspirin 325 mg daily. 11. Fenofibrate 160 mg daily. 12. Hydralazine 100 mg 3 times a day. 13. Potassium chloride 20 mEq daily. INPATIENT SOCIAL SERVICE MANAGER: 1. Cardiology, Dr. Horvath. 2. Nephrology, Dr. Madison. The patient was seen and examined on the day of discharge. Please refer to my progress note for details. BRIEF HOSPITAL COURSE: The patient is an 83-year-old female, who was admitted on 22 February 2019 for shortness of breath. A workup was consistent with congestive heart failure exacerbation. Recent echo showed severe aortic stenosis with severe mitral regurgitation as well as severe tricuspid regurgitation with ejection fraction of 55% to 60%. She showed good improvement with diuretics. BNP on admission was 854. Due to elevated creatinine of 1.86, the patient was seen by Nephrology. She has been started back on her Bumex. Creatinine stabilized around 1.76 to 1.72. She is compliant with fluid and salt restriction. Weight at discharge is 145 pounds compared to 151 pounds on admission. Per Cardiology recommendation, the patient was transferred to [facility] for TAVR. FINAL DIAGNOSES: 1. Acute on chronic diastolic heart failure. 2. Severe aortic stenosis. 3. Severe mitral regurgitation. 4. Severe tricuspid regurgitation. 5. Acute kidney injury on chronic kidney disease stage 3. 6. Hypertension. 7. Coronary artery disease, status post coronary artery bypass grafting. 8. Diabetes mellitus type 2. 9. Episodes of hypoglycemia. 10. Second-degree AV block type 1. 11. Chronic anemia. The patient will be evaluated by Dr. Roy at [facility]. She will be evaluated for mitral valve clipping versus TAVR. PLAN: Plan was discussed with the patient and the family in detail. They stated understanding. TIME SPENT WITH PATIENT: Total time coordinating the discharge of this patient was 34 minutes. Job ID: [id number]
== END 2019-03-03 22:05 | disposition short-term general hospital (02) | DRG 291 ==
LOC: ERS 06:03 → ERHOLD 09:08 → 2NO 18:31
PROVIDERS: ADMIT Internal Medicine; ATTEND Internal Medicine
DX: I13.0 Hypertensive heart and chronic kidney disease with heart failure and stage 1 through stage 4 chronic kidney disease, or unspecified chronic kidney disease (principal); I50.33 Acute on chronic diastolic (congestive) heart failure; N17.9 Acute kidney failure, unspecified; I25.10 Atherosclerotic heart disease of native coronary artery without angina pectoris; E78.5 Hyperlipidemia, unspecified; Z95.1 Presence of aortocoronary bypass graft; Z90.710 Acquired absence of both cervix and uterus; Z79.899 Other long term (current) drug therapy; N18.3 Chronic kidney disease, stage 3 (moderate); E11.22 Type 2 diabetes mellitus with diabetic chronic kidney disease; I44.1 Atrioventricular block, second degree; E78.00 Pure hypercholesterolemia, unspecified; E11.649 Type 2 diabetes mellitus with hypoglycemia without coma; I08.3 Combined rheumatic disorders of mitral, aortic and tricuspid valves; D63.1 Anemia in chronic kidney disease
CPT/HCPCS: 36415; 36416; 51701; 71045; 80048; 80053; 81001; 81003; 82550; 82553; 82570; 83880; 84300; 84484; 85025; 87086; 93005; 93798; 94640; 96361; 96374; 96376; J1815; J1940; J7620